=== PATIENT | female | born 1940 | race Caucasian/White ===

== ENCOUNTER 2018-06-11 09:22 | Inpatient (IN) ==
[2018-06-11] MEDS ORDERED: Piperacil/Tazo 4.5 GM Premix 4.5 GM/100 ML BAG IV.SIG STA (09:34)
[2018-06-11] MEDS ORDERED: Azithromycin Inj 500 MG in Sodium Chlor 0.9% Inj 250 ML IV.SIG STA (09:34)
[2018-06-11] MEDS ORDERED: Vancomycin Inj 1,000 MG in Sodium Chlor 0.9% Inj 250 ML IV.SIG STA (09:34)
[2018-06-11 09:35] LABS: ABG Base Excess -24.2 mmol/L (-2-2); ABG PCO2 14 mmHg (38-42); ABG PO2 257 mmHg (61-120)
[2018-06-11] MEDS: Sod Chloride 0.9% Inj 1,000 ML IV.SIG SCH ×2 (09:56→10:43)
--- NOTE | 2018-06-11 10:02 | XR ---
EXAM DATE: 06/11/2018 9:53 AM EST AGE/SEX: 77 years / Female INDICATIONS: Chest pain and shortness of breath. CLINICAL DATA: This is the patient's initial encounter. Patient reports that signs and symptoms have been present for 1 day and indicates a pain score of Nonresponsive. MEDICAL/SURGICAL HISTORY: Non-responsive. Non-responsive. COMPARISON: No prior exams available for comparison. FINDINGS: A single AP view of the chest demonstrates the lungs to be symmetrically aerated without evidence of mass, infiltrate or effusion. Atherosclerotic calcifications are again noted in the aorta. The cardio mediastinal contours are unremarkable. Osseous structures are intact. There are overlying electrocar diogram leads. CONCLUSION: No acute cardiopulmonary disease. Electronically signed by: Kaushal Waite MD Board Certified Radiologist 06/11/2018 10:01 AM EST
[2018-06-11 10:12] LABS: Baso # (Auto) 0.1 th/mm3 (0.0-0.2); Baso % (Auto) 0.5 % (0.0-2.0); Eos % (Auto) 0.4 % (0.0-4.0); Hematocrit 30.7 % (35.0-46.0); Lymph # (Auto) 1.2 th/mm3 (1.0-4.8); Mean Corpuscular HGB Conc 32.7 % (32.0-36.0); Mean Corpuscular Hemoglobin 31.4 pg (27.0-34.0); Mean Platelet Volume 8.5 fL (7.0-11.0); Mono # (Auto) 0.4 th/mm3 (0.0-0.9); Mono % (Auto) 3.3 % (0.0-8.0); Neut # (Auto) 10.6 th/mm3 (1.8-7.7); Neut % (Auto) 85.8 % (16.0-70.0); Platelet Count 278 th/mm3 (150-450); Red Cell Distribution Width 15.1 % (11.6-17.2); White Blood Count 12.4 th/mm3 (4.0-11.0)
--- NOTE | 2018-06-11 10:18 | ED ---
HPI General Chief Complaint: Shortness of Breath/Dyspnea Stated Complaint: Cardiac/emergent Time Seen by Provider: 06/11/18 09:34 Source: patient and EMS Mode of arrival: EMS Limitations: physical limitation (The patient is very short of breath which limits her ability to give us a history) History of Present Illness Complaint: Reports shortness of breath Context: Reports recent illness (She reports abdominal pain for the last 2 weeks. EVAC reports that she has been treated with 2 courses of antibiotics for a respiratory infection. The last antibiotic was a sulfa drug.) Severity: severe Consistency/Duration: constant Relieving factors: nothing Exacerbating factors: nothing Known history of: Reports COPD Associated symptoms: Reports nausea/vomiting and abdominal pain Treatment prior to arrival: Reports oxygen Related Data Home Medications Medication Instructions Recorded Confirmed amlodipine 10 mg PO DAILY 06/11/18 06/11/18 buspirone 10 mg PO BID 06/11/18 06/11/18 cetirizine 10 mg PO DAILY 06/11/18 06/11/18 lisinopril 40 mg PO DAILY 06/11/18 06/11/18 metoprolol succinate 50 mg PO BID 06/11/18 06/11/18 sertraline 50 mg PO DAILY 06/11/18 06/11/18 sulfamethoxazole-trimethoprim 1 tab PO Q12H 06/11/18 06/11/18 Allergies Allergy/AdvReac Type Severity Reaction Status Date / Time No Known Allergies Allergy Verified 06/11/18 09:25 Review of Systems ROS Unobtainable ROS Unobtainable: other (Due to respiratory status) [facility] Medical History Medical History Acute kidney injury (Acute) Allergic rhinitis (Acute) Anxiety (Acute) COPD (chronic obstructive pulmonary disease) (Acute) Depression (Acute) HTN (hypertension) (Acute) Hyperkalemia (Acute) Leukocytosis (Acute) Normocytic anemia (Acute) Tobacco abuse (Acute) Surgical History Surgical History Surgical history unknown (Acute) Family History Family History Other Paternal family history of emphysema Social History Social History Substance History: Unable to Obtain Second Hand Smoke Exposure: Yes Smoking Status: Current every day smoker Tobacco Type: Cigarettes How Often Do You Have a Drink Containing Alcohol: Unable to Obtain Recent Travel in [facility] within the Last 8 Weeks: No Recent Out of Country Travel within the Last 8 Weeks: No Immunization History Tetanus Immunization: Unsure Exam Const General: cooperative, acute distress and frail appearing Nutritional Appearance: malnourished and thin Orientation: alert, awake and oriented x3 [facility] Head: normal to inspection, normocephalic and atraumatic Mouth: moist mucous membranes abnormal (Mouth is dry) Eyes Conjunctivae: conjunctivae normal Sclera: sclerae normal Neck Neck: normal visual inspection and full ROM Chest Chest: normal inspection of the chest Breast inspection: normal inspection of the breasts Resp Effort & Inspection: labored and tachypneic Auscultation: clear to auscultation bilaterally Cardio Rate: regular rate Rhythm: regular rhythm GI Inspection: normal to inspection Palpation: soft and tender Back/Spine/Pelvis Cervical Spine: cervical ROM normal Thoracic/Lumbar Spine: thoraco-lumbar ROM normal Skin General: turgor normal and other (Normal color) Neuro General: alert, awake, oriented x3, moves all extremities and CN's II-XI intact bilaterally Extrem General: normal to inspection and full ROM Psych Appearance: grossly normal Mental Status: mental status grossly normal Course Consultations Consultation #1: Dr. Aguiar, truck dispatcher Time: 10:53 Consultation #2: Dr Mason, life enrichment assistant Time: 10:57 Initial Documented Vital Signs Pulse Rate 67 06/11/18 09:29 Respiratory Rate 17 06/11/18 09:29 Blood Pressure 159/58 H 06/11/18 09:29 Last Documented Vital Signs Temperature 95.9 F L 06/11/18 12:46 Pulse Rate 90 06/11/18 15:48 Respiratory Rate 18 06/11/18 15:48 Blood Pressure 92/44 L 06/11/18 14:00 Pulse Oximetry 100 06/11/18 14:00 Critical Care Time Critical Care Time: Yes Total Critical Care Time: 45 Attestation: Time to perform other separately billable procedures was not included in the critical care time. My time did not include minutes spent treating any other patients simultaneously or on activities that did not directly contribute to the patient's treatment. The services I provided to this patient were to treat and/or prevent clinically significant deterioration due to respiratory distress, rule out sepsis I provided critical care services requiring my management, as noted below: Chart data review, documentation time, medication orders and management, vital sign assessments/reviewing monitor data, ordering and reviewing lab tests, ordering and interpreting/reviewing x-rays and diagnostic studies, care of the patient and discussion of the patient with the admitting physicians Medical Decision Making MDM Narrative Medical decision making narrative: This patient presented to [facility] with respiratory distress. They report oxygen saturation of 80% on a 15 L nonrebreather mask. The patient looks acutely ill on presentation. She has labored respirations. However, her lungs are clear. Her cardiac rhythm was in question on arrival. We have subsequently obtained an EKG and it looks like her cardiac rhythm is sinus with large, discordant T waves. EVAC's monitor was counting the T waves. An ABG was quickly obtained. The patient has a metabolic acidosis. She has adequate oxygenation. Septic workup is in process. She is being bolused with 2 L of IV fluids. She has been given empiric antibiotics for a respiratory infection. She presented here yesterday to triage with a chief complaint of abdominal pain for the last 2 weeks. She left prior to being seen. Given that history, I have added a CT of the abdomen and pelvis to look for a source of infection there. The potassium is 8.8. I have ordered IV insulin/D50, calcium carbonate and bicarb. Nephrology has been paged. The patient needs to be admitted to the intensive care unit. I have canceled her CT of the abdomen and pelvis. Medical Screen Exam Complete: Yes Emergency Medical Condition: Yes Lab Data Lab results reviewed: Yes I reviewed the patient's lab results. Result diagrams: 06/11/18 09:47 06/11/18 09:47 Lab Results 06/11/18 06/11/18 06/11/18 Range/Units 09:28 09:47 09:47 WBC 12.4 H (4.0-11.0) th/mm3 RBC 3.20 L (4.00-5.30) mil/mm3 Hgb 10.0 L (11.6-15.3) gm/dL Hct 30.7 L (35.0-46.0) % MCV 96.0 (80.0-100.0) fL MCH 31.4 (27.0-34.0) pg MCHC 32.7 (32.0-36.0) % RDW 15.1 (11.6-17.2) % Plt Count 278 (150-450) th/mm3 MPV 8.5 (7.0-11.0) fL Prelim Diff (Auto) Slide review pending Neut % (Auto) 85.8 H (16.0-70.0) % Lymph % (Auto) 10.0 (9.0-44.0) % Sebastian % (Auto) 3.3 (0.0-8.0) % Eos % (Auto) 0.4 (0.0-4.0) % Baso % (Auto) 0.5 (0.0-2.0) % Neut # (Auto) 10.6 H (1.8-7.7) th/mm3 Lymph # (Auto) 1.2 (1.0-4.8) th/mm3 Sebastian # (Auto) 0.4 (0.0-0.9) th/mm3 Eos # (Auto) 0.0 (0.0-0.4) th/mm3 Baso # (Auto) 0.1 (0.0-0.2) th/mm3 WBC Differential Manual diff final Seg Neuts % (Manual) 85 H (16-70) % Lymphocytes % (Manual) 10 (9-44) % Basophils % (Manual) 1 (0-2) % Metamyelocytes % (Man) 3 H (0-1) % Myelocytes % (Man) 1 H (0-0) % Abs Neuts (Manual) 11.0 H (1.8-7.7) th/mm3 Differential Comment . Platelet Estimate Normal (Normal) Platelet Morphology Normal (Normal) Puncture Site Right radial Patient Temperature 98.6 O2 Saturation 98 (90-100) % ABG pH 7.09 L* (7.380-7.420) ABG pCO2 14 L* (38-42) mmHg ABG pO2 257 H (61-120) mmHg ABG HCO3 4 L* (22-26) mmol/L ABG O2 Content 13.6 (12.0-20.0) Vol % ABG Base Excess -24.2 L (-2-2) mmol/L ABG Methemoglobin 0.9 (0-2) % Paddy Test Present Hemoglobin 9.4 L (12.0-16.0) G/DL Carboxyhemoglobin 0.4 (0-4) % O2 Delivery Device Nrb Liter Flow 15.00 L/M Inspired O2 100 % Critical Value Yes Sodium 137 (136-145) meq/L Potassium 8.8 H* (3.5-5.1) meq/L Chloride 114 H (98-107) meq/L Carbon Dioxide 7.8 L (21.0-32.0) meq/L Anion Gap 15 (5-15) meq/L BUN 172 H (7-18) mg/dL Creatinine 9.81 H (0.50-1.00) mg/dL Estimated GFR 4 L (>89) mL/min POC Glucose (68-110) mg/dl Random Glucose 75 (74-106) mg/dL Lactic Acid (0.4-2.0) mmol/L Calcium 8.9 (8.5-10.1) mg/dL Magnesium 3.0 H (1.5-2.5) mg/dL Total Bilirubin 0.2 (0.2-1.0) mg/dL AST 17 (15-37) U/L ALT 20 (10-53) U/L Alkaline Phosphatase 60 (45-117) U/L Ammonia (11-32) mcmol/L Total Creatine Kinase (26-192) U/L Troponin I (0.02-0.05) ng/mL Total Protein 6.6 (6.4-8.2) g/dL Albumin 3.5 (3.4-5.0) g/dL TSH (0.358-3.740) uIU/mL Urine Color (Yellw/Straw) Urine Clarity (Clear) Urine pH (5.0-8.5) Ur Specific [facility] [place] (1.002-1.035) Urine Protein (Neg-Trace) mg/dL Urine Glucose (UA) (Negative) mg/dL Urine Ketones (Negative) mg/dL Urine Occult Blood (Negative) Urine Nitrate (Negative) Urine Bilirubin (Negative) Urine Urobilinogen (Less than 2) mg/dL Ur Leukocyte Esterase (Negative) Urine RBC (0-3) /hpf Urine WBC (0-5) /hpf Ur Squamous Epith Cells (0-5) /hpf Amorphous Sediment (None) /hpf Urine Bacteria (None) /hpf Hyaline Casts (0-3) /lpf Urine Mucus (Occasional) /lpf Micro UA Comment Ur Microscopic Review Urine Culture Comments Urine Eosinophils (None Seen) /HPF Ur Random Creatinine (27-300) mg/dL Ur Random Sodium meq/L Nasal Screen MRSA (PCR) (Negative) 06/11/18 06/11/18 06/11/18 Range/Units 09:47 09:47 09:47 WBC (4.0-11.0) th/mm3 RBC (4.00-5.30) mil/mm3 Hgb (11.6-15.3) gm/dL Hct (35.0-46.0) % MCV (80.0-100.0) fL MCH (27.0-34.0) pg MCHC (32.0-36.0) % RDW (11.6-17.2) % Plt Count (150-450) th/mm3 MPV (7.0-11.0) fL Prelim Diff (Auto) Neut % (Auto) (16.0-70.0) % Lymph % (Auto) (9.0-44.0) % Sebastian % (Auto) (0.0-8.0) % Eos % (Auto) (0.0-4.0) % Baso % (Auto) (0.0-2.0) % Neut # (Auto) (1.8-7.7) th/mm3 Lymph # (Auto) (1.0-4.8) th/mm3 Sebastian # (Auto) (0.0-0.9) th/mm3 Eos # (Auto) (0.0-0.4) th/mm3 Baso # (Auto) (0.0-0.2) th/mm3 WBC Differential Seg Neuts % (Manual) (16-70) % Lymphocytes % (Manual) (9-44) % Basophils % (Manual) (0-2) % Metamyelocytes % (Man) (0-1) % Myelocytes % (Man) (0-0) % Abs Neuts (Manual) (1.8-7.7) th/mm3 Differential Comment Platelet Estimate (Normal) Platelet Morphology (Normal) Puncture Site Patient Temperature O2 Saturation (90-100) % ABG pH (7.380-7.420) ABG pCO2 (38-42) mmHg ABG pO2 (61-120) mmHg ABG HCO3 (22-26) mmol/L ABG O2 Content (12.0-20.0) Vol % ABG Base Excess (-2-2) mmol/L ABG Methemoglobin (0-2) % Paddy Test Hemoglobin (12.0-16.0) G/DL Carboxyhemoglobin (0-4) % O2 Delivery Device Liter Flow L/M Inspired O2 % Critical Value Sodium (136-145) meq/L Potassium (3.5-5.1) meq/L Chloride (98-107) meq/L Carbon Dioxide (21.0-32.0) meq/L Anion Gap (5-15) meq/L BUN (7-18) mg/dL Creatinine (0.50-1.00) mg/dL Estimated GFR (>89) mL/min POC Glucose (68-110) mg/dl Random Glucose (74-106) mg/dL Lactic Acid 0.8 (0.4-2.0) mmol/L Calcium (8.5-10.1) mg/dL Magnesium (1.5-2.5) mg/dL Total Bilirubin (0.2-1.0) mg/dL AST (15-37) U/L ALT (10-53) U/L Alkaline Phosphatase (45-117) U/L Ammonia (11-32) mcmol/L Total Creatine Kinase 118 (26-192) U/L Troponin I 0.04 (0.02-0.05) ng/mL Total Protein (6.4-8.2) g/dL Albumin (3.4-5.0) g/dL TSH 1.880 (0.358-3.740) uIU/mL Urine Color (Yellw/Straw) Urine Clarity (Clear) Urine pH (5.0-8.5) Ur Specific [facility] (1.002-1.035) Urine Protein (Neg-Trace) mg/dL Urine Glucose (UA) (Negative) mg/dL Urine Ketones (Negative) mg/dL Urine Occult Blood (Negative) Urine Nitrate (Negative) Urine Bilirubin (Negative) Urine Urobilinogen (Less than 2) mg/dL Ur Leukocyte Esterase (Negative) Urine RBC (0-3) /hpf Urine WBC (0-5) /hpf Ur Squamous Epith Cells (0-5) /hpf Amorphous Sediment (None) /hpf Urine Bacteria (None) /hpf Hyaline Casts (0-3) /lpf Urine Mucus (Occasional) /lpf Micro UA Comment Ur Microscopic Review Urine Culture Comments Urine Eosinophils (None Seen) /HPF Ur Random Creatinine (27-300) mg/dL Ur Random Sodium meq/L Nasal Screen MRSA (PCR) (Negative) 06/11/18 06/11/18 06/11/18 Range/Units 10:00 12:20 13:30 WBC (4.0-11.0) th/mm3 RBC (4.00-5.30) mil/mm3 Hgb (11.6-15.3) gm/dL Hct (35.0-46.0) % MCV (80.0-100.0) fL MCH (27.0-34.0) pg MCHC (32.0-36.0) % RDW (11.6-17.2) % Plt Count (150-450) th/mm3 MPV (7.0-11.0) fL Prelim Diff (Auto) Neut % (Auto) (16.0-70.0) % Lymph % (Auto) (9.0-44.0) % Sebastian % (Auto) (0.0-8.0) % Eos % (Auto) (0.0-4.0) % Baso % (Auto) (0.0-2.0) % Neut # (Auto) (1.8-7.7) th/mm3 Lymph # (Auto) (1.0-4.8) th/mm3 Sebastian # (Auto) (0.0-0.9) th/mm3 Eos # (Auto) (0.0-0.4) th/mm3 Baso # (Auto) (0.0-0.2) th/mm3 WBC Differential Seg Neuts % (Manual) (16-70) % Lymphocytes % (Manual) (9-44) % Basophils % (Manual) (0-2) % Metamyelocytes % (Man) (0-1) % Myelocytes % (Man) (0-0) % Abs Neuts (Manual) (1.8-7.7) th/mm3 Differential Comment Platelet Estimate (Normal) Platelet Morphology (Normal) Puncture Site Patient Temperature O2 Saturation (90-100) % ABG pH (7.380-7.420) ABG pCO2 (38-42) mmHg ABG pO2 (61-120) mmHg ABG HCO3 (22-26) mmol/L ABG O2 Content (12.0-20.0) Vol % ABG Base Excess (-2-2) mmol/L ABG Methemoglobin (0-2) % Paddy Test Hemoglobin (12.0-16.0) G/DL Carboxyhemoglobin (0-4) % O2 Delivery Device Liter Flow L/M Inspired O2 % Critical Value Sodium (136-145) meq/L Potassium (3.5-5.1) meq/L Chloride (98-107) meq/L Carbon Dioxide (21.0-32.0) meq/L Anion Gap (5-15) meq/L BUN (7-18) mg/dL Creatinine (0.50-1.00) mg/dL Estimated GFR (>89) mL/min POC Glucose 348 H (68-110) mg/dl Random Glucose (74-106) mg/dL Lactic Acid (0.4-2.0) mmol/L Calcium (8.5-10.1) mg/dL Magnesium (1.5-2.5) mg/dL Total Bilirubin (0.2-1.0) mg/dL AST (15-37) U/L ALT (10-53) U/L Alkaline Phosphatase (45-117) U/L Ammonia (11-32) mcmol/L Total Creatine Kinase (26-192) U/L Troponin I (0.02-0.05) ng/mL Total Protein (6.4-8.2) g/dL Albumin (3.4-5.0) g/dL TSH (0.358-3.740) uIU/mL Urine Color Yellow (Yellw/Straw) Urine Clarity Hazy H (Clear) Urine pH 5.0 (5.0-8.5) Ur Specific [facility] 1.012 (1.002-1.035) Urine Protein 30 H (Neg-Trace) mg/dL Urine Glucose (UA) Negative (Negative) mg/dL Urine Ketones Negative (Negative) mg/dL Urine Occult Blood Small H (Negative) Urine Nitrate Negative (Negative) Urine Bilirubin Negative (Negative) Urine Urobilinogen Less than 2 (Less than 2) mg/dL Ur Leukocyte Esterase Negative (Negative) Urine RBC 1 (0-3) /hpf Urine WBC 1 (0-5) /hpf Ur Squamous Epith Cells 9 (0-5) /hpf Amorphous Sediment Rare H (None) /hpf Urine Bacteria Rare H (None) /hpf Hyaline Casts 7 (0-3) /lpf Urine Mucus Few H (Occasional) /lpf Micro UA Comment Cath-culture ind Ur Microscopic Review Not Reportable Urine Culture Comments Cath-cult indicated Urine Eosinophils (None Seen) /HPF Ur Random Creatinine 113 (27-300) mg/dL Ur Random Sodium 60 meq/L Nasal Screen MRSA (PCR) (Negative) 06/11/18 06/11/18 06/11/18 Range/Units 13:30 14:00 14:48 WBC (4.0-11.0) th/mm3 RBC (4.00-5.30) mil/mm3 Hgb (11.6-15.3) gm/dL Hct (35.0-46.0) % MCV (80.0-100.0) fL MCH (27.0-34.0) pg MCHC (32.0-36.0) % RDW (11.6-17.2) % Plt Count (150-450) th/mm3 MPV (7.0-11.0) fL Prelim Diff (Auto) Neut % (Auto) (16.0-70.0) % Lymph % (Auto) (9.0-44.0) % Sebastian % (Auto) (0.0-8.0) % Eos % (Auto) (0.0-4.0) % Baso % (Auto) (0.0-2.0) % Neut # (Auto) (1.8-7.7) th/mm3 Lymph # (Auto) (1.0-4.8) th/mm3 Sebastian # (Auto) (0.0-0.9) th/mm3 Eos # (Auto) (0.0-0.4) th/mm3 Baso # (Auto) (0.0-0.2) th/mm3 WBC Differential Seg Neuts % (Manual) (16-70) % Lymphocytes % (Manual) (9-44) % Basophils % (Manual) (0-2) % Metamyelocytes % (Man) (0-1) % Myelocytes % (Man) (0-0) % Abs Neuts (Manual) (1.8-7.7) th/mm3 Differential Comment Platelet Estimate (Normal) Platelet Morphology (Normal) Puncture Site Patient Temperature O2 Saturation (90-100) % ABG pH (7.380-7.420) ABG pCO2 (38-42) mmHg ABG pO2 (61-120) mmHg ABG HCO3 (22-26) mmol/L ABG O2 Content (12.0-20.0) Vol % ABG Base Excess (-2-2) mmol/L ABG Methemoglobin (0-2) % Paddy Test Hemoglobin (12.0-16.0) G/DL Carboxyhemoglobin (0-4) % O2 Delivery Device Liter Flow L/M Inspired O2 % Critical Value Sodium (136-145) meq/L Potassium (3.5-5.1) meq/L Chloride (98-107) meq/L Carbon Dioxide (21.0-32.0) meq/L Anion Gap (5-15) meq/L BUN (7-18) mg/dL Creatinine (0.50-1.00) mg/dL Estimated GFR (>89) mL/min POC Glucose (68-110) mg/dl Random Glucose (74-106) mg/dL Lactic Acid (0.4-2.0) mmol/L Calcium (8.5-10.1) mg/dL Magnesium (1.5-2.5) mg/dL Total Bilirubin (0.2-1.0) mg/dL AST (15-37) U/L ALT (10-53) U/L Alkaline Phosphatase (45-117) U/L Ammonia 16 (11-32) mcmol/L Total Creatine Kinase (26-192) U/L Troponin I (0.02-0.05) ng/mL Total Protein (6.4-8.2) g/dL Albumin (3.4-5.0) g/dL TSH (0.358-3.740) uIU/mL Urine Color (Yellw/Straw) Urine Clarity (Clear) Urine pH (5.0-8.5) Ur Specific [facility] (1.002-1.035) Urine Protein (Neg-Trace) mg/dL Urine Glucose (UA) (Negative) mg/dL Urine Ketones (Negative) mg/dL Urine Occult Blood (Negative) Urine Nitrate (Negative) Urine Bilirubin (Negative) Urine Urobilinogen (Less than 2) mg/dL Ur Leukocyte Esterase (Negative) Urine RBC (0-3) /hpf Urine WBC (0-5) /hpf Ur Squamous Epith Cells (0-5) /hpf Amorphous Sediment (None) /hpf Urine Bacteria (None) /hpf Hyaline Casts (0-3) /lpf Urine Mucus (Occasional) /lpf Micro UA Comment Ur Microscopic Review Urine Culture Comments Urine Eosinophils Rare H (None Seen) /HPF Ur Random Creatinine (27-300) mg/dL Ur Random Sodium meq/L Nasal Screen MRSA (PCR) Not detected (Negative) Imaging Data Attestation: I personally reviewed and interpreted this imaging study as follows : Radiologist's impression: Chest X-Ray 06/11/18 09:34 CONCLUSION: No acute cardiopulmonary disease. Abdomen/Bladder Ultrasound 06/11/18 11:19 CONCLUSION: 1. Small echogenic right kidney 2. Normal left kidney 3. Trace ascites Chest X-Ray 06/11/18 12:00 CONCLUSION: 1. Interval placement of right internal jugular central venous line with no pneumothorax. 2. No acute cardiopulmonary disease. ECG Data EKG Prior to Arrival: Yes Attestation: I personally reviewed and interpreted this ECG as follows: (EKG shows an underlying sinus rhythm with unifocal PVCs. She has discordant, peaked T waves in the anterolateral leads.) Prior ECG tracings: not available for review Discharge Plan Discharge Disposition Patient Disposition: ED Admit(ED Internal Use Only) Discharge Order Discharge Orders: ED Use Only Admit Order (Routine); Ordered 06/11/18 Ordered By: Susie Wolfe Discharge Details Diagnosis: Acute renal failure, Acute hyperkalemia Physicians Team ED Provider: Susie Wolfe Primary Care Provider: Pardeep Duke Attending Provider: Jordan Aguiar Other Providers: Joel Maldonado Status ED Status: Left Department Discharge Information Discharge Date/Time: 06/11/18 12:35
[2018-06-11 10:38] LABS: Alanine Aminotransferase 20 U/L (10-53); Albumin 3.5 g/dL (3.4-5.0); Alkaline Phosphatase 60 U/L (45-117); Anion Gap 15 meq/L (5-15); Aspartate Aminotransferase 17 U/L (15-37); Blood Urea Nitrogen 172 mg/dL (7-18); Calcium 8.9 mg/dL (8.5-10.1); Carbon Dioxide 7.8 meq/L (21.0-32.0); Chloride 114 meq/L (98-107); Glomerular Filtration Rate 4 mL/min (>89); Glucose,Random 75 mg/dL (74-106); Sodium 137 meq/L (136-145); Total Protein 6.6 g/dL (6.4-8.2)
[2018-06-11 10:40] LABS: Potassium 8.8 meq/L (3.5-5.1)
[2018-06-11] MEDS ORDERED: Calcium Gluconate Inj 2 GM in Dextrose 5% in Water Inj 100 ML IV.SIG ONE ×2 (10:40)
[2018-06-11] MEDS ORDERED: Dextrose 50% in Water 50 ML Vial IV.PUSH ONE (10:40)
[2018-06-11 10:42] LABS: Amorphous Sediment,Urine Rare /hpf; Bacteria,Urine Rare /hpf; Bilirubin,Urine Negative (Negative); Clarity,Urine Hazy (Clear); Color,Urine Yellow (Yellw/Straw); Glucose,Urine (UA) Negative (Negative); Hyaline Casts,Urine 7 /lpf (0-3); Leukocyte Esterase,Urine Negative (Negative); Mucus,Urine Few /lpf (Occasional); Nitrite,Urine Negative (Negative); Specific Gravity,Urine 1.012 (1.002-1.035); Squamous Epithelial Cell,Urine 9 /hpf (0-5)
[2018-06-11 10:54] LABS: Lymphocytes 10 % (9-44); Metamyelocytes 3 % (0-1); Myelocytes 1 % (0-0)
[2018-06-11 10:55] LABS: Platelet Estimate Normal (Normal); Platelet Morphology Normal (Normal)
[2018-06-11] MEDS ORDERED: Gelatin 12 MM/7 MM Topical Foam TOPICAL PRN (11:06)
[2018-06-11] MEDS ORDERED: Heparin 10,000 UNITS/10 ML Vial (for IV use) OTHER PRN ×2 (11:06)
[2018-06-11] MEDS ORDERED: Acetaminophen 325 MG Tablet PO PRN ×2 (11:06→11:19)
[2018-06-11] MEDS ORDERED: Sod Chloride 0.9% Inj 1,000 ML IV.CONT PRN (11:06)
[2018-06-11] MEDS ORDERED: Sod Chloride 0.9% Inj 1,000 ML OTHER PRN ×2 (11:06)
[2018-06-11] MEDS ORDERED: Bisacodyl 10 MG Supp RECTAL PRN (11:19)
[2018-06-11] MEDS ORDERED: Dextrose 50% in Water 50 ML Vial IV.PUSH PRN (11:23)
--- NOTE | 2018-06-11 11:24 | P.HPCC ---
History of Present Illness Service: Critical care medicine Primary Care Physician: Pardeep Duke MD Chief Complaint: Altered mental status History of Present Illness: This is a 77-year-old female. Admission 06/11/2018. Past medical history includes chronic tobacco abuse, COPD, depression/anxiety, hypertension and allergic rhinitis. Patient presents to [facility] [address] In the ED, patient was noted to have leukocytosis, normocytic anemia and elevated potassium above 8. Trend is currently 10. BUN is elevated. Patient is quite confused. EKG reveals peaked T waves. Dr. Mason from nephrology was consulted and recommended emergent hemodialysis.. Hemodialysis cath was placed patient was transported to room [facility] to begin this procedure. - Diagnosis (1) Acute renal failure (2) Acute hyperkalemia (3) COPD (chronic obstructive pulmonary disease) (4) Depression (5) Anxiety (6) Normocytic anemia (7) Leukocytosis (8) Tobacco abuse (9) Allergic rhinitis Inpatient Certification: I certify that the inpatient services were ordered in accordance with Medicare regulations governing the order. This includes certification that hospital inpatient services are reasonable and necessary and in the case of services not specified as inpatient-only under 42 CFR 419.22(n), that they are appropriately provided as inpatient services in accordance to with the 2-midnight benchmark under 43 CFR 412.3(e) Estimated Total Length of Stay (Days): 5 Plans for Post Hospital Care: Not yet determined Review of Systems unobtainable due to mental status PMFSH - History History Provided By: Patient - Medical History Medical History: Medical History (Last Updated 06/11/18 @ 12:47 by Jordan Aguiar MD) Acute kidney injury Allergic rhinitis Anxiety COPD (chronic obstructive pulmonary disease) Depression HTN (hypertension) Hyperkalemia Leukocytosis Normocytic anemia Surgical history unknown Tobacco abuse - Surgical History Surgical History: Surgical History (Last Updated 06/11/18 @ 12:48 by Jordan Aguiar MD) Surgical history unknown - Family History Family History: Family History (Last Updated 06/11/18 @ 12:48 by Jordan Aguiar MD) Other Paternal family history of emphysema - Social History I have reviewed the patient's Social History: Yes - Tobacco History Second Hand Smoke Exposure: Yes Tobacco Use In Past 30 Days: Yes Smoking Status: Current every day smoker Tobacco Type: Cigarettes - Alcohol History How Often Do You Have a Drink Containing Alcohol: Unable to Obtain - Substance Use History Substance History: Unable to Obtain - Travel History Recent Travel in the [place] Within the Last 8 Weeks: No Recent Travel Out of the Country Within the Last 8 Weeks: No - Immunization History Tetanus Immunization: Unsure Medications and Allergies Active Medications: Active Medications Acetaminophen (Tylenol) 650 mg PO UNSCH PRN PRN Reason: SEE LABEL COMMENTS Acetaminophen (Tylenol) 650 mg PO Q6H PRN PRN Reason: PAIN 1-10 AND/OR FEVER >101F Al Hydroxide/Mg Hydroxide (Milk Of Carmelita Parada) 30 ml PO Q12H PRN PRN Reason: Mild Constipation Albuterol (Albuterol Neb (Nicole)) 2.5 mg NEB Q2HR NEB PRN PRN Reason: SHORTNESS OF BREATH/WHEEZING Albuterol (Duoneb Neb (Prn)) 1 ampul NEB Q4HR NEB NICOLE Bisacodyl (Dulcolax Supp) 10 mg RECTAL DAILY PRN PRN Reason: SEVERE CONSITIPATION Chlorhexidine Gluconate (Chlorhexidine 2% Cloth) 3 pack TOPICAL DAILY@0400 NICOLE Stop: 06/17/18 03:59 Chlorhexidine Gluconate (Chlorhexidine 2% Cloth) 3 pack TOPICAL DAILY@0400 PRN PRN Reason: Extra cloth needed Stop: 06/17/18 03:59 Clonidine HCl (Catapres) 0.1 mg PO UNSCH PRN PRN Reason: SEE LABEL COMMENTS Dextrose (D50w Vial) 50 ml IV.PUSH UNSCH PRN PRN Reason: PER HYPOGLYCEMIA PROTOCOL Diphenhydramine HCl (Benadryl) 25 mg PO UNSCH PRN PRN Reason: SEE LABEL COMMENTS Gelatin (Gelfoam 12 Mm/7 Mm Topical) 1 foam TOPICAL PRN PRN PRN Reason: help stop bleeding from site Gentamicin Sulfate (Gentamicin Inj) 20 mg OTHER WITH DIALYSIS PRN PRN Reason: Dwell Gentamycin Lock Glucagon (Glucagon Inj) 1 mg OTHER PRN PRN PRN Reason: for Hypoglycemia Protocol Heparin Sodium (Porcine) (Heparin Inj) 8,000 units OTHER WITH DIALYSIS PRN PRN Reason: for machine prime Heparin Sodium (Porcine) (Heparin Inj) 1,000 units OTHER WITH DIALYSIS PRN PRN Reason: Dwell Heparin to Fill Catheter Heparin Sodium (Porcine) (Heparin Inj) 5,000 units SQ Q12H NICOLE Calcium Gluconate 2 gm/ (Dextrose) 120 mls @ 120 mls/hr IV.SIG ONCE ONE Stop: 06/11/18 11:39 Last Admin: 06/11/18 11:06 Dose: 120 mls/hr Albumin Human (Flexbumin 25% Inj) 100 mls @ 60 mls/hr IV.SIG WITH DIALYSIS PRN PRN Reason: hypotension / volume replace Sodium Chloride (Ns Inj) 1,000 mls @ 0 mls/hr OTHER .Q0M PRN PRN Reason: for prime and rinse back Sodium Chloride (Ns Inj) 1,000 mls @ 200 mls/hr OTHER .Q5H PRN PRN Reason: for dialyzer flush PRN Sodium Chloride (Ns Inj) 1,000 mls @ 0 mls/hr IV.CONT .Q0M PRN PRN Reason: hypotension / volume replace Sodium Chloride (Ns Inj) 1,000 mls @ 84 mls/hr IV.CONT .[id number] NICOLE Insulin Aspart (Novolog Insulin Correctional Sugar Inj) 0 unit SQ Q6HR NICOLE; Protocol Lactulose (Lactulose Liq) 30 ml PO DAILY PRN PRN Reason: SEVERE CONSITIPATION Mannitol (Mannitol Inj) 12.5 gm IV.PUSH UNSCH PRN PRN Reason: hypotension / volume replace Nitroglycerin (Nitrostat Sl) 0.4 mg SL Q5M PRN PRN Reason: CHEST PAIN Ondansetron HCl (Zofran Inj) 4 mg IV.PUSH UNSCH PRN PRN Reason: NAUSEA OR VOMITING Ondansetron HCl (Zofran Inj) 4 mg IV.PUSH Q6H PRN PRN Reason: NAUSEA OR VOMITING Pantoprazole Sodium (Protonix Inj) 40 mg IV.PUSH DAILY [facility] Senna/Docusate Sodium (Meagan-Colace) 1 tab PO BID [facility] Sennosides (Senokot) 17.2 mg PO Q12H PRN PRN Reason: Moderate Constipation Sodium Chloride (Ns Flush) 5 ml IV.FLUSH PRN PRN PRN Reason: flush each lumen during HD Sodium Chloride (Ns Flush) 2 ml IV.FLUSH BID NICOLE Sodium Chloride (Ns Flush) 2 ml IV.FLUSH PRN PRN PRN Reason: FLUSH AFTER USING IV ACCESS Allergies Allergy/AdvReac Type Severity Reaction Status Date / Time No Known Allergies Allergy Verified 06/11/18 09:25 Home Medications Medication Instructions Recorded Confirmed Type amlodipine 10 mg PO DAILY 06/11/18 06/11/18 History buspirone 10 mg PO BID 06/11/18 06/11/18 History cetirizine 10 mg PO DAILY 06/11/18 06/11/18 History lisinopril 40 mg PO DAILY 06/11/18 06/11/18 History metoprolol succinate 50 mg PO BID 06/11/18 06/11/18 History sertraline 50 mg PO DAILY 06/11/18 06/11/18 History sulfamethoxazole-trimethoprim 1 tab PO Q12H 06/11/18 06/11/18 History Results - Labs CBC & Chem 7: 06/11/18 09:47 06/11/18 09:47 Labs: Short CBC 06/11/18 Range/Units 09:47 WBC 12.4 H (4.0-11.0) th/mm3 Hgb 10.0 L (11.6-15.3) gm/dL Hct 30.7 L (35.0-46.0) % Plt Count 278 (150-450) th/mm3 BMP 06/11/18 09:47 Sodium 137 Potassium 8.8 H* Chloride 114 H Carbon Dioxide 7.8 L BUN 172 H Creatinine 9.81 H Calcium 8.9 Liver Function 06/11/18 Range/Units 09:47 Total Bilirubin 0.2 (0.2-1.0) mg/dL AST 17 (15-37) U/L ALT 20 (10-53) U/L Alkaline Phosphatase 60 (45-117) U/L Albumin 3.5 (3.4-5.0) g/dL Urine 06/11/18 Range/Units 10:00 Urine Color Yellow (Yellw/Straw) Urine Clarity Hazy H (Clear) Urine pH 5.0 (5.0-8.5) Ur Specific [place] 1.012 (1.002-1.035) Urine Protein 30 H (Neg-Trace) mg/dL Urine Glucose (UA) Negative (Negative) mg/dL - Imaging Impressions Chest X-Ray 06/11/18 09:34 CONCLUSION: No acute cardiopulmonary disease. Exam Vital signs: Vital Signs 06/11/18 09:29 06/11/18 10:01 06/11/18 10:30 Temperature 97.0 F L Pulse Rate 67 116 H Respiratory Rate 17 Blood Pressure 159/58 H 109/65 Pulse Oximetry 95 06/11/18 11:00 Temperature Pulse Rate 128 H Respiratory Rate Blood Pressure 132/57 L Pulse Oximetry 97 Intake & Output 06/10/18 06/11/18 06/11/18 18:59 06:59 18:59 Intake Total 2600 / 2600 Balance 2600 / 2600 Weight 34.473 kg Intake: IV 2600 / 2600 Azithromycin Inj 500 MG In NS 250 / 250 Inj 250 ML @ 250 mls/hr IV.SIG STAT STA Rx#:[id number] Zosyn 4.5 GM Premix 4.5 gm In 100 / 100 100 ml @ 200 mls/hr IV.SIG STAT STA Rx#:[id number] NS Inj 1,000 ML @ 2000 mls/hr 1999 / 1999 IV.SIG Q30M NICOLE Rx#:[id number] Vancomycin Inj 1,000 MG In NS 250 / 250 Inj 250 ML @ 250 mls/hr IV.SIG STAT STA Rx#:[id number] - Constitutional mild distress - Routine HEENT Exam Head: Present: normocephalic, atraumatic Eye: Present: EOMI, PERRL, normal accommodation ENT: Present: mucous membranes dry - Routine Neck Exam Present: supple, full ROM. Absent: JVD - Routine Chest/Breast/Axilla Exam Chest wall: Absent: tenderness Breast: Absent: tenderness Axillae: Absent: lymphadenopathy - Routine Respiratory Exam Present: crackles, diminished air movement. Absent: accessory muscle use - Routine Cardiovascular Exam Present: RRR, S1, S2. Absent: murmur - Routine Abdominal Exam Present: soft, normoactive bowel sounds - Routine Extremities Exam Absent: cyanosis, clubbing, edema - Routine Skin Exam Present: intact - Routine Neurological Exam Present: CN II-XII intact. Absent: alert, oriented X3, sensory deficit, motor deficit Septic Shock Reassessment Septic shock perfusion: reassessment completed Caprini VTE Risk Assessment Caprini VTE Risk Assessment: Moderate/High Risk (score >= 2) Caprini Risk Assessment Model: Point Value = 1 Point Value = 2 Point Value = 3 Point Value = 5 Age 41-60 Minor surgery BMI > 25 kg/m2 Swollen legs Varicose veins or History of unexplained or recurrent spontaneous Oral contraceptives or hormone replacement Sepsis (< 1 month) Serious lung disease, including pneumonia (< 1 month) Abnormal pulmonary function Acute myocardial infarction Congestive heart failure (< 1 month) History of inflammatory bowel disease Medical patient at bed rest Age 61-74 Arthroscopic surgery Major open surgery (> 45 min) Laparoscopic surgery (> 45 min) Malignancy Confined to bed (> 72 hours) Immobilizing plaster cast Central venous access Age >= 75 History of VTE Family history of VTE Factor V Leiden Prothrombin [id number] Lupus anticoagulant Anticardiolipin antibodies Elevated serum homocysteine Heparin-induced thrombocytopenia Other congenital or acquired thrombophilia Stroke (< 1 month) Elective arthroplasty Hip, pelvis, or leg fracture Acute spinal cord injury (< 1 month) Prophylaxis Regimen: Total Risk Factor Score Risk Level Prophylaxis Regimen 0-1 Low Early ambulation 2 Moderate Order ONE of the following: *Sequential Compression Device (SCD) *Heparin 5000 units SQ BID 3-4 Higher Order ONE of the following medications: *Heparin 5000 units SQ TID *Enoxaparin/Lovenox 40 mg SQ daily (WT < 150 kg, CrCl > 30 mL/min) *Enoxaparin/Lovenox 30 mg SQ daily (WT < 150 kg, CrCl > 10-29 mL/min) *Enoxaparin/Lovenox 30 mg SQ BID (WT < 150 kg, CrCl > 30 mL/min) AND/OR *Sequential Compression Device (SCD) 5 or more Highest Order ONE of the following medications: *Heparin 5000 units SQ TID (Preferred with Epidurals) *Enoxaparin/Lovenox 40 mg SQ daily (WT < 150 kg, CrCl > 30 mL/min) *Enoxaparin/Lovenox 30 mg SQ daily (WT < 150 kg, CrCl > 10-29 mL/min) *Enoxaparin/Lovenox 30 mg SQ BID (WT < 150 kg, CrCl > 30 mL/min) AND *Sequential Compression Device (SCD) Assessment and Plan - Problem List (1) Acute renal failure Code(s): N17.9 - Acute kidney failure, unspecified Status: Acute (2) Acute hyperkalemia Code(s): E87.5 - Hyperkalemia Status: Acute (3) COPD (chronic obstructive pulmonary disease) Code(s): J44.9 - Chronic obstructive pulmonary disease, unspecified Status: Acute (4) Depression Code(s): F32.9 - Major depressive disorder, single episode, unspecified Status : Acute (5) Anxiety Code(s): F41.9 - Anxiety disorder, unspecified Status: Acute (6) Normocytic anemia Code(s): D64.9 - Anemia, unspecified Status: Acute (7) Leukocytosis Code(s): D72.829 - Elevated white blood cell count, unspecified Status: Acute (8) Tobacco abuse Code(s): Z72.0 - Tobacco use Status: Acute (9) Allergic rhinitis Code(s): J30.9 - Allergic rhinitis, unspecified Status: Acute - Assessment and Plan Plan: Neuro/Psych: Depressive disorder NOS Acute encephalopathy secondary to uremia/toxic metabolic Continue buspirone 10 mg twice daily and sertraline 50 mg daily Acetaminophen 650 mg p.o. every 6 hours as needed fever/pain 1 through 10 See renal for treatment of uremia CV: Essential hypertension Currently on normal saline at 84 cc an hour Holding lisinopril 40 mg twice daily in light of acute injury. Hold metoprolol succinate 50 mg twice daily. Resume if clinically indicated Holding amlodipine 10 mg daily resume when clinically dictating EKG revealed peaked T waves. Heart rate in the 80s. CPK and troponin pending Resp: Acute respiratory insufficiency Tobaccoism Chest x-ray admission revealed hyperinflated lungs. No focal infiltrates Nasal cannula to maintain saturations greater than equal to 90% Incentive spirometry while awake Albuterol/ipratropium aerosols every 4 hours with albuterol aerosols every 2 hours as needed dyspnea Add budesonide 0.5/2 1 inhalation twice daily Tobacco cessation education provided Nicotine patch 14 mg daily GI: N.p.o. for now Pantoprazole for GI prophylaxis Docusate serum/senna 1 tablet twice daily for bowel regimen : Dumont catheter for accurate I's and O's in a critical patient Endo: Sliding scale insulin Accu-Cheks to maintain euglycemia/every 6 hours aspart insulin low regimen Check TSH Renal: Acute kidney injury with uremia Evaluated by Dr. Mason/nephrology. Emergent hemodialysis Avoid nephrotoxic medication Renal ultrasound/urine electrolytes including sodium, creatinine and eosinophils pending Monitor urine output Accurate I's and O's Heme: Normocytic anemia Thrombocytopenia Monitor CBC and coags. No indication for transfusion of blood products at this time ID: Received vancomycin, piperacillin/tazobactam and azithromycin in ED. Will treat with Pipracil/tazobactam and azithromycin day #1 Blood cultures x2, sputum, UA all ordered. Influenza a and B- MSK: PT evaluate and treat FEN: Hyperkalemia Hyper magnesium Undergoing acute hemodialysis.. Repeat potassium at 1700 hrs. today Received D50/insulin/bicarbonate calcium in the ED. Access -Right IJ hemodialysis catheter 1 placed 06/11 -Utilize peripheral IV Prophylaxis -GI -pantoprazole -DVT -SCD/heparin subcu Critical care time 35 minutes exclusive of procedures Code Status: Full code Discussed Condition With: Patient. Son. Granddaughter. Care plan discussed all questions answered. (1) Acute renal failure Qualifiers: Acute renal failure type: unspecified Qualified Code(s): N17.9 - Acute kidney failure, unspecified (3) COPD (chronic obstructive pulmonary disease) Qualifiers: COPD type: unspecified COPD (4) Depression Qualifiers: Depression Type: unspecified Qualified Code(s): F32.9 - Major depressive disorder, single episode, unspecified (7) Leukocytosis Qualifiers: Leukocytosis type: unspecified Qualified Code(s): D72.829 - Elevated white blood cell count, unspecified (9) Allergic rhinitis Qualifiers: Allergic rhinitis trigger: unspecified Allergic rhinitis seasonality: unspecified Qualified Code(s): J30.9 - Allergic rhinitis, unspecified
--- NOTE | 2018-06-11 11:32 | P.CONNP ---
History of Present Illness Service: Nephrology Consult date: 06/11/18 Requesting Physician: Susie Wolfe Reason for Consult: Hyperkalemia ARF Primary Care Provider: Pardeep Duke MD History of Present Illness: 77-year-old female with history of COPD, hypertension, chronic cigarette smoker who has not been feeling well for the past 2 weeks, she has some abdominal pain , nausea and vomiting and diarrhea and was given Bactrim, she felt weak tired lethargic and getting chills as well, presented to emergency with a potassium of 8.8 high BUN and creatinine, she denies knowledge of prior kidney disease, history obtained from the son at bedside. Review of Systems No: unobtainable due to mental status PMFSH - History History Provided By: Patient - Medical History Medical History: Medical History (Last Reviewed 06/11/18 @ 11:28 by Adi Mason MD) Depression HTN (hypertension) - Surgical History Surgical History: Surgical History (Last Updated 06/11/18 @ 12:48 by Jordan Aguiar MD) Surgical history unknown - Family History Family History: Family History (Last Updated 06/11/18 @ 12:48 by Jordan Aguiar MD) Other Paternal family history of emphysema - Social History I have reviewed the patient's Social History: Yes - Tobacco History Second Hand Smoke Exposure: Yes Tobacco Use In Past 30 Days: Yes Smoking Status: Current every day smoker Tobacco Type: Cigarettes - Alcohol History How Often Do You Have a Drink Containing Alcohol: Unable to Obtain - Substance Use History Substance History: Unable to Obtain - Travel History Recent Travel in the [place] Within the Last 8 Weeks: No Recent Travel Out of the Country Within the Last 8 Weeks: No - Immunization History Tetanus Immunization: Unsure Medications and Allergies Active Medications: Active Medications Acetaminophen (Tylenol) 650 mg PO UNSCH PRN PRN Reason: SEE LABEL COMMENTS Acetaminophen (Tylenol) 650 mg PO Q6H PRN PRN Reason: PAIN 1-10 AND/OR FEVER >101F Al Hydroxide/Mg Hydroxide (Milk Of Magndave Liq) 30 ml PO Q12H PRN PRN Reason: Mild Constipation Albuterol (Albuterol Neb (Nicole)) 2.5 mg NEB Q2HR NEB PRN PRN Reason: SHORTNESS OF BREATH/WHEEZING Albuterol (Duoneb Neb (Prn)) 1 ampul NEB Q4HR NEB NICOLE Bisacodyl (Dulcolax Supp) 10 mg RECTAL DAILY PRN PRN Reason: SEVERE CONSITIPATION Chlorhexidine Gluconate (Chlorhexidine 2% Cloth) 3 pack TOPICAL DAILY@0400 NICOLE Stop: 06/17/18 03:59 Chlorhexidine Gluconate (Chlorhexidine 2% Cloth) 3 pack TOPICAL DAILY@0400 PRN PRN Reason: Extra cloth needed Stop: 06/17/18 03:59 Clonidine HCl (Catapres) 0.1 mg PO UNSCH PRN PRN Reason: SEE LABEL COMMENTS Dextrose (D50w Vial) 50 ml IV.PUSH UNSCH PRN PRN Reason: PER HYPOGLYCEMIA PROTOCOL Diphenhydramine HCl (Benadryl) 25 mg PO UNSCH PRN PRN Reason: SEE LABEL COMMENTS Gelatin (Gelfoam 12 Mm/7 Mm Topical) 1 foam TOPICAL PRN PRN PRN Reason: help stop bleeding from site Gentamicin Sulfate (Gentamicin Inj) 20 mg OTHER WITH DIALYSIS PRN PRN Reason: Dwell Gentamycin Lock Glucagon (Glucagon Inj) 1 mg OTHER PRN PRN PRN Reason: for Hypoglycemia Protocol Heparin Sodium (Porcine) (Heparin Inj) 8,000 units OTHER WITH DIALYSIS PRN PRN Reason: for machine prime Heparin Sodium (Porcine) (Heparin Inj) 1,000 units OTHER WITH DIALYSIS PRN PRN Reason: Dwell Heparin to Fill Catheter Heparin Sodium (Porcine) (Heparin Inj) 5,000 units SQ Q12H [facility] Calcium Gluconate 2 gm/ (Dextrose) 120 mls @ 120 mls/hr IV.SIG ONCE ONE Stop: 06/11/18 11:39 Last Admin: 06/11/18 11:06 Dose: 120 mls/hr Albumin Human (Flexbumin 25% Inj) 100 mls @ 60 mls/hr IV.SIG WITH DIALYSIS PRN PRN Reason: hypotension / volume replace Sodium Chloride (Ns Inj) 1,000 mls @ 0 mls/hr OTHER .Q0M PRN PRN Reason: for prime and rinse back Sodium Chloride (Ns Inj) 1,000 mls @ 200 mls/hr OTHER .Q5H PRN PRN Reason: for dialyzer flush PRN Sodium Chloride (Ns Inj) 1,000 mls @ 0 mls/hr IV.CONT .Q0M PRN PRN Reason: hypotension / volume replace Sodium Chloride (Ns Inj) 1,000 mls @ 84 mls/hr IV.CONT .[id number] [facility] Insulin Aspart (Novolog Insulin Correctional Sugar Inj) 0 unit SQ Q6HR NICOLE; Protocol Lactulose (Lactulose Liq) 30 ml PO DAILY PRN PRN Reason: SEVERE CONSITIPATION Mannitol (Mannitol Inj) 12.5 gm IV.PUSH UNSCH PRN PRN Reason: hypotension / volume replace Nitroglycerin (Nitrostat Sl) 0.4 mg SL Q5M PRN PRN Reason: CHEST PAIN Ondansetron HCl (Zofran Inj) 4 mg IV.PUSH UNSCH PRN PRN Reason: NAUSEA OR VOMITING Ondansetron HCl (Zofran Inj) 4 mg IV.PUSH Q6H PRN PRN Reason: NAUSEA OR VOMITING Pantoprazole Sodium (Protonix Inj) 40 mg IV.PUSH DAILY [facility] Senna/Docusate Sodium (Meagan-Colace) 1 tab PO BID [facility] Sennosides (Senokot) 17.2 mg PO Q12H PRN PRN Reason: Moderate Constipation Sodium Chloride (Ns Flush) 5 ml IV.FLUSH PRN PRN PRN Reason: flush each lumen during HD Sodium Chloride (Ns Flush) 2 ml IV.FLUSH BID [facility] Sodium Chloride (Ns Flush) 2 ml IV.FLUSH PRN PRN PRN Reason: FLUSH AFTER USING IV ACCESS Allergies Allergy/AdvReac Type Severity Reaction Status Date / Time No Known Allergies Allergy Verified 06/11/18 09:25 Home Medications Medication Instructions Recorded Confirmed Type amlodipine 10 mg PO DAILY 06/11/18 06/11/18 History buspirone 10 mg PO BID 06/11/18 06/11/18 History cetirizine 10 mg PO DAILY 06/11/18 06/11/18 History lisinopril 40 mg PO DAILY 06/11/18 06/11/18 History metoprolol succinate 50 mg PO BID 06/11/18 06/11/18 History sertraline 50 mg PO DAILY 06/11/18 06/11/18 History sulfamethoxazole-trimethoprim 1 tab PO Q12H 06/11/18 06/11/18 History Exam Vital signs: Vital Signs 06/11/18 09:29 06/11/18 10:01 06/11/18 10:30 Temperature 97.0 F L Pulse Rate 67 116 H Respiratory Rate 17 Blood Pressure 159/58 H 109/65 Pulse Oximetry 95 06/11/18 11:00 Temperature Pulse Rate 128 H Respiratory Rate Blood Pressure 132/57 L Pulse Oximetry 97 Intake & Output 06/10/18 06/11/18 06/11/18 18:59 06:59 18:59 Intake Total 2600 / 2600 Balance 2600 / 2600 Weight 34.473 kg Intake: IV 2600 / 2600 Azithromycin Inj 500 MG In NS 250 / 250 Inj 250 ML @ 250 mls/hr IV.SIG STAT STA Rx#:[id number] Zosyn 4.5 GM Premix 4.5 gm In 100 / 100 100 ml @ 200 mls/hr IV.SIG STAT STA Rx#:[id number] NS Inj 1,000 ML @ 2000 mls/hr 1999 / 1999 IV.SIG Q30M NICOLE Rx#:[id number] Vancomycin Inj 1,000 MG In NS 250 / 250 Inj 250 ML @ 250 mls/hr IV.SIG STAT STA Rx#:[id number] Narrative: GENERAL: mal-nourished, well-developed frail patient. SKIN: Warm and dry. HEAD: Normocephalic. EYES: No scleral icterus. No injection or drainage. NECK: Supple, trachea midline. No JVD or lymphadenopathy. CARDIOVASCULAR: Tachycardia RESPIRATORY: Breath sounds equal bilaterally. No accessory muscle use. GASTROINTESTINAL: Abdomen soft, non-tender, nondistended. EXTREMITIES: No edema NEUROLOGICAL: Awake, alert, and confused Results - Lab Results 06/11/18 19:25 06/11/18 19:25 Most recent lab results ABG pH 7.09 (7.380-7.420) L* 06/11/18 09:28 ABG pCO2 14 mmHg (38-42) L* 06/11/18 09:28 ABG pO2 257 mmHg (61-120) H 06/11/18 09:28 ABG HCO3 4 mmol/L (22-26) L* 06/11/18 09:28 Calcium 8.9 mg/dL (8.5-10.1) 06/11/18 09:47 Magnesium 3.0 mg/dL (1.5-2.5) H 06/11/18 09:47 Assessment and Plan - Assessment (1) Acute renal failure Code(s): N17.9 - Acute kidney failure, unspecified Status: Acute Plan: Discussed with critical, vascular access at bedside Hemodialysis orders placed Complained to the family urgent need for dialysis EKG reviewed as abnormal peaked T waves in QRS widening seen Patient emergently treated in the emergency room calcium, D50, insulin, sodium bicarbonate. Patient seen during dialysis, vascath poorly working. (2) Acute hyperkalemia Code(s): E87.5 - Hyperkalemia Status: Acute (1) Acute renal failure Qualifiers: Acute renal failure type: unspecified Qualified Code(s): N17.9 - Acute kidney failure, unspecified
[2018-06-11] MEDS ORDERED: Heparin 2,000 UNITS/2 ML Vial (for IV use) IV.FLUSH PRN (12:00)
[2018-06-11 12:02] LABS: Thyroid Stimulating Hormone 1.88 uIU/mL (0.358-3.740)
--- NOTE | 2018-06-11 12:08 | P.PCN ---
[facility] Procedure Note REASON FOR PROCEDURE Hemodialysis access PROCEDURE PERFORMED Temporary dialysis catheter placement: Right IJ CONSENT Informed consent for procedure was obtained from pt. The risks and benefits of the procedure were discussed to include but limited to bleeding, clot formation , infection, and even . ANESTHESIA Local injection of 1% Lidocaine DESCRIPTION OF THE PROCEDURE The patient was placed in supine, mild Trendelenburg position. The area was exposed and cleansed with ChloraPrep, times two. Large sterile drape was used to cover the patient, with the site exposed, under sterile conditions including cap, face mask, sterile gown, and sterile gloves. On single attempt, the introducer needle was inserted with negative pressure in syringe and venous flash was obtained. The guide wire was then advanced without any restriction and the needle was removed. The dilator was used without any complications. Using Seldinger technique the double lumen temporary dialysis catheter was advanced over the guide wire to a depth of 17 centimeters. The guide wire was removed. All ports were aspirated with dark venous blood return and flushed easily with sterile saline. All ports were capped. Antibiotic disc was placed around central line at puncture site. The central line was secured to the skin with two interrupted 2.0 silk sutures. The area was bandaged with sterile see- through central line bandage. RADIOLOGICAL DATA Ultrasound guidance was used to locate right IJ. Doppler/color flow was used to confirm venous flow. Stat chest x-ray was ordered for line placement. COMPLICATIONS: No apparent complications ESTIMATED BLOOD LOSS: Less than 1 cc
[2018-06-11] MEDS: Sod Chloride 0.9% Inj 1,000 ML IV.CONT SCH (12:22)
[2018-06-11] MEDS: Heparin - SQ 10,000 UNITS/ML Vial SQ SCH ×2 (12:22→23:35)
--- NOTE | 2018-06-11 12:28 | XR ---
EXAM DATE: 06/11/2018 12:22 PM EST AGE/SEX: 77 years / Female INDICATIONS: Central line placement. CLINICAL DATA: This is the patient's initial encounter. Patient reports that signs and symptoms have been present for 1 day and indicates a pain score of Nonresponsive. MEDICAL/SURGICAL HISTORY: Non-responsive. Non-responsive. [place] [facility] [place]. . FINDINGS: 2 AP supine portable views of the chest demonstrates the lungs to be symmetrically aerated without ev idence of mass, infiltrate or effusion. The cardiomediastinal contours are unremarkable. Osseous st ructures are intact. There is been interval placement of right internal jugular central venous line w ith the tip projected over the superior vena cava. There is no pneumothorax. Atherosclerotic changes are again noted in the aorta. CONCLUSION: 1. Interval placement of right internal jugular central venous line with no pneumothorax. 2. No acute cardiopulmonary disease. Electronically signed by: Kaushal Waite MD Board Certified Radiologist 06/11/2018 12:27 PM EST
[2018-06-11] MEDS: Insulin NovoLOG Aspart Correctional Sugar Inj SQ SCH ×3 (12:54→23:35)
--- NOTE | 2018-06-11 14:11 | US ---
EXAM DATE: 06/11/2018 2:05 PM EST AGE/SEX: 77 years / Female INDICATIONS: Increased BUN/Creatinine. CLINICAL DATA: This is the patient's initial encounter. Patient reports that signs and symptoms have been present for 1 day and indicates a pain score of 0/10. MEDICAL/SURGICAL HISTORY: . Acute kidney injury. Allergic rhinitis. Anxiety. COPD. Depression. HTN, Hyperkalemia. Leukocytosis. Normocytic anemia. Tobacco abuse. None. COMPARISON: No prior exams available for comparison. MEASUREMENTS: Right Kidney:__6.4 x 2.9 x 2.4 cm Left Kidney:__10.4 x 5.2 x 5.3 cm FINDINGS: Right Kidney: Small echogenic right kidney probably providing little renal function. Several small cy stic areas are adjacent to small kidney Left Kidney: Normal echogenicity and cortical thickness. No mass or hydronephrosis. Bladder: Dumont catheter is present. Bladder decompressed. Other: Trace free fluid CONCLUSION: 1. Small echogenic right kidney 2. Normal left kidney 3. Trace ascites Electronically signed by: Xu Mcneal MD Board Certified Radiologist 06/11/2018 2:10 PM EST
[2018-06-11 14:21] LABS: Creatinine,Urine Random 113 mg/dL (27-300); Sodium,Urine Random 60 meq/L
[2018-06-11] MEDS: Albumin Human 25% Inj 100 ML IV.SIG PRN ×2 (14:43→15:29)
--- NOTE | 2018-06-11 16:23 | XR ---
EXAM DATE: 06/11/2018 4:17 PM EST AGE/SEX: 77 years / Female INDICATIONS: Hemodialysis catheter repositioned. CLINICAL DATA: This is the patient's subsequent encounter. Patient reports that signs and symptoms h ave been present for 3 days and indicates a pain score of Nonresponsive. MEDICAL/SURGICAL HISTORY: Non-responsive. Non-responsive. COMPARISON: [facility], CHEST 1V SINGLE AP, 06/11/2018. . FINDINGS: Hyperinflation. Aortic calcification. No consolidation or effusion. Right dialysis catheter is noted and the distal tip projects over the expected location of the SVC. CONCLUSION: Hyperinflation. Electronically signed by: Juan Arroyo MD Board Certified Radiologist 06/11/2018 4:22 PM EST
[2018-06-11 16:25] LABS: Hepatitis A IgM Antibody Nonreactive (Nonreactive)
[2018-06-11 16:26] LABS: Hepatitits B Surface Antigen Nonreactive (Nonreactive)
[2018-06-11] MEDS ORDERED: Sod Chloride 0.9% Inj 1,000 ML IV.SIG ONE (17:20)
[2018-06-11 17:34] LABS: ABG Base Excess 1.1 mmol/L (-2-2); ABG PCO2 20 mmHg (38-42); ABG PO2 78 mmHG (61-120)
[2018-06-11] MEDS: Piperacil/Tazo 2.25 GM Premix 2.25 GM/50 ML PIGGYBACK IV.SIG SCH (17:57)
[2018-06-11 19:41] LABS: Mean Corpuscular Hemoglobin 32.1 pg (27.0-34.0); Mean Corpuscular Volume 89.4 fL (80.0-100.0); Mean Platelet Volume 7.7 fL (7.0-11.0); Platelet Count 171 th/mm3 (150-450); Red Blood Count 2.06 mil/mm3 (4.00-5.30); Red Cell Distribution Width 14.4 % (11.6-17.2); White Blood Count 11.2 th/mm3 (4.0-11.0)
[2018-06-11 19:49] LABS: INR 1.2 Ratio; Prothrombin Time 12.3 sec (9.8-11.6)
[2018-06-11 19:51] LABS: Hematocrit 18.4 % (35.0-46.0); Hemoglobin 6.6 gm/dL (11.6-15.3)
[2018-06-11 19:55] LABS: Calcium 6.7 mg/dL (8.5-10.1); Carbon Dioxide 19.5 meq/L (21.0-32.0); Potassium 3.3 meq/L (3.5-5.1)
[2018-06-11 20:04] LABS: Albumin 3.2 g/dL (3.4-5.0)
[2018-06-11 20:07] LABS: Calcium-Albumin Corrected 7.3 mg/dL (8.5-10.1)
[2018-06-11] MEDS: Senna/Docusate Sodium 8.6/50 MG Tablet PO SCH (22:08)
--- NOTE | 2018-06-11 22:34 | ECG ---
Date Performed: 06/11/2018 Time Performed: 09:30:13 PTAGE: 77 years EKG: ECTOPIC ATRIAL RHYTHM WITH OCCASIONAL VENTRICULAR PREMATURE COMPLEXES LEFT VENTRICULAR HYPE RTROPHY AND ST-T CHANGE ABNORMAL ECG NO PREVIOUS TRACING DOCTOR: Kodak Hernandez Interpretating Date/Time 06/11/2018 22:32:54
[2018-06-12] MEDS: Sod Chloride 0.9% Inj 1,000 ML IV.CONT SCH ×3 (02:41→23:20)
[2018-06-12] MEDS: Piperacil/Tazo 2.25 GM Premix 2.25 GM/50 ML PIGGYBACK IV.SIG SCH ×3 (02:47→17:04)
[2018-06-12] MEDS: Chlorhexidine Gluconate 2% 1 Pack (2 Cloths) TOPICAL SCH (03:24)
[2018-06-12] MEDS ORDERED: Chlorhexidine Gluconate 2% 1 Pack (2 Cloths) TOPICAL PRN (04:00)
[2018-06-12 06:21] LABS: Baso % (Auto) 0.4 % (0.0-2.0); Eos % (Auto) 0.2 % (0.0-4.0); Hematocrit 25.8 % (35.0-46.0); Hemoglobin 8.9 gm/dL (11.6-15.3); Lymph # (Auto) 0.8 th/mm3 (1.0-4.8); Lymph % (Auto) 8.6 % (9.0-44.0); Mean Corpuscular HGB Conc 34.7 % (32.0-36.0); Mean Corpuscular Hemoglobin 31.1 pg (27.0-34.0); Mean Corpuscular Volume 89.6 fL (80.0-100.0); Mono # (Auto) 0.8 th/mm3 (0.0-0.9); Mono % (Auto) 8.2 % (0.0-8.0); Neut # (Auto) 7.6 th/mm3 (1.8-7.7); Neut % (Auto) 82.6 % (16.0-70.0); Platelet Count 179 th/mm3 (150-450); Red Blood Count 2.88 mil/mm3 (4.00-5.30); Red Cell Distribution Width 14.7 % (11.6-17.2); White Blood Count 9.2 th/mm3 (4.0-11.0)
[2018-06-12] MEDS: Insulin NovoLOG Aspart Correctional Sugar Inj SQ SCH ×3 (06:23→17:04)
[2018-06-12 06:53] LABS: Albumin 3.1 g/dL (3.4-5.0); Calcium 7.2 mg/dL (8.5-10.1); Magnesium 1.9 mg/dL (1.5-2.5); Phosphorus 4.6 mg/dL (2.5-4.9); Potassium 3.8 meq/L (3.5-5.1); Total Protein 5.1 g/dL (6.4-8.2)
--- NOTE | 2018-06-12 08:17 | P.PNCC ---
Subjective Subjective Remarks/Hospital Course: This is a 77-year-old female. Admission 06/11/2018. Past medical history includes chronic tobacco abuse, COPD, depression/anxiety, hypertension and allergic rhinitis. Patient presents to [facility] In the ED, patient was noted to have leukocytosis, normocytic anemia and elevated potassium above 8. Creatinine is currently 10. BUN is elevated. Patient is quite confused. EKG reveals peaked T waves. Dr. Mason from nephrology was consulted and recommended emergent hemodialysis.. Hemodialysis cath was placed patient was transported to room [facility] to begin this procedure Subjective 06/12: Status post hemodialysis yesterday. Potassium is currently 3.8. Requesting advance diet. Hemodynamically stable. More lucid today. Objective Vital Signs / I&O: Vital Signs 06/11/18 09:29 06/11/18 10:01 06/11/18 10:30 Temperature 97.0 F L Pulse Rate 67 116 H Respiratory Rate 17 Blood Pressure 159/58 H 109/65 Pulse Oximetry 95 06/11/18 11:00 06/11/18 12:35 06/11/18 12:46 Temperature 95.9 F L Pulse Rate 128 H 74 Respiratory Rate 29 H Blood Pressure 132/57 L 106/66 117/94 H Pulse Oximetry 97 94 L 06/11/18 13:00 06/11/18 14:00 06/11/18 15:00 Temperature Pulse Rate 69 65 82 Respiratory Rate 31 H 11 L 16 Blood Pressure 117/51 L 92/44 L 109/54 L Pulse Oximetry 85 L 100 100 06/11/18 15:48 06/11/18 16:00 06/11/18 17:00 Temperature 98.3 F Pulse Rate 90 91 H 96 H Respiratory Rate 18 18 20 Blood Pressure 138/60 97/53 L Pulse Oximetry 99 98 06/11/18 18:00 06/11/18 19:00 06/11/18 20:00 Temperature 98.5 F Pulse Rate 116 H 118 H 103 H Respiratory Rate 20 19 15 Blood Pressure 95/48 L 108/52 L 110/58 L Pulse Oximetry 94 L 99 98 06/11/18 21:00 06/11/18 22:00 06/11/18 22:15 Temperature Pulse Rate 116 H 118 H 99 H Respiratory Rate 17 16 18 Blood Pressure 115/51 L 96/55 L Pulse Oximetry 98 100 06/11/18 22:16 06/11/18 22:53 06/11/18 23:00 Temperature 98.6 F Pulse Rate 89 100 H Respiratory Rate 11 L 16 Blood Pressure 104/51 L 118/57 L Pulse Oximetry 95 100 100 06/11/18 23:11 06/11/18 23:55 06/12/18 00:00 Temperature 97.8 F 97.8 F Pulse Rate 92 H 82 92 H Respiratory Rate 13 17 11 L Blood Pressure 107/48 L 123/59 L Pulse Oximetry 100 100 06/12/18 01:00 06/12/18 02:00 06/12/18 03:00 Temperature 98.7 F Pulse Rate 105 H 94 H 92 H Respiratory Rate 11 L 16 12 Blood Pressure 141/60 H 119/58 L 131/57 L Pulse Oximetry 100 100 96 06/12/18 03:27 06/12/18 03:58 06/12/18 04:00 Temperature 98.7 F Pulse Rate 96 H 80 78 Respiratory Rate 12 17 12 Blood Pressure 131/57 L 116/56 L Pulse Oximetry 96 100 06/12/18 05:00 06/12/18 06:00 Temperature Pulse Rate 98 H 88 Respiratory Rate 14 21 Blood Pressure 126/60 119/58 L Pulse Oximetry 95 94 L Intake & Output 06/11/18 06/12/18 06/12/18 18:59 06:59 18:59 Intake Total 3970 / 3970 450 / 450 1000 / 1000 Output Total 375 / 375 250 / 250 Balance 3595 / 3595 200 / 200 1000 / 1000 Weight 37 kg 40 kg Intake: IV 3970 / 3970 50 / 50 1000 / 1000 NS Inj 1,000 ML @ 84 mls/hr IV. 1000 / 1000 CONT .[id number] L[facility] Rx#:[id number] Flexbumin 25% Inj 100 ML @ 60 200 / 200 mls/hr IV.SIG WITH DIALYSIS PRN Rx#:[id number] Azithromycin Inj 500 MG In NS 250 / 250 Inj 250 ML @ 250 mls/hr IV.SIG STAT STA Rx#:[id number] Calcium Gluconate Inj 2 GM In 120 / 120 D5W Inj 100 ML @ 120 mls/hr IV. SIG ONCE ONE Rx#:[id number] Zosyn 2.25 GM Premix 2.25 gm In 50 / 50 50 / 50 50 ml @ 100 mls/hr IV.SIG Q8H L[facility] Rx#:[id number] Zosyn 4.5 GM Premix 4.5 gm In 100 / 100 100 ml @ 200 mls/hr IV.SIG STAT STA Rx#:[id number] NS Inj 1,000 ML @ Wide Open IV. 3000 / 3000 SIG BOLUS ONE Rx#:[id number] Vancomycin Inj 1,000 MG In NS 250 / 250 Inj 250 ML @ 250 mls/hr IV.SIG STAT STA Rx#:[id number] Oral 0 / 0 Intake (Blood Product) Amt 400 / 400 Rbc As-3 Leukoreduced Unit 400 / 400 [id number] Output: Urine 250 / 250 Urine Amount (Catheter) 375 / 375 Indwelling Urethral Catheter 375 / 375 Other: Date of Last Bowel Movement 06/12/18 # Bowel Movements 0 1 # Incontinent Bowel Movements 1 Weight On Admission 37 kg Result Diagrams: 06/12/18 05:59 06/12/18 05:59 Other Results: Microbiology 06/11/18 09:50 Nasal Wash Influenza Types A,B Antigen - Final Negative for FLU A and B antigen Infection due to influenza A or B cannot be ruled out since the antigen present in the sample may be below the detection limit of the test. Imaging: Chest X-Ray 06/11/18 00:00 CONCLUSION: Hyperinflation. Chest X-Ray 06/11/18 09:34 CONCLUSION: No acute cardiopulmonary disease. Abdomen/Bladder Ultrasound 06/11/18 11:19 CONCLUSION: 1. Small echogenic right kidney 2. Normal left kidney 3. Trace ascites Chest X-Ray 06/11/18 12:00 CONCLUSION: 1. Interval placement of right internal jugular central venous line with no pneumothorax. 2. No acute cardiopulmonary disease. Objective Remarks: GENERAL: 77-year-old female currently resting in bed in no acute distress SKIN: Warm and dry. HEAD: Atraumatic. Normocephalic. EYES: Pupils equal and round. No scleral icterus. No injection or drainage. ENT: No nasal bleeding or discharge. Mucous membranes pink and moist. NECK: Trachea midline. No JVD. Right IJ Hemo dialysis catheter is clean dry and intact CARDIOVASCULAR: Regular rate and rhythm. S1, S2 predose 4 per RESPIRATORY: No accessory muscle use. Clear to auscultation. Breath sounds equal bilaterally. GASTROINTESTINAL: Abdomen soft, non-tender, scaphoid. Hypoactive bowel sounds are present MUSCULOSKELETAL: Extremities without clubbing, cyanosis, or edema. NEUROLOGICAL: Awake and alert. No obvious cranial nerve deficits. Motor grossly within normal limits. Five out of 5 muscle strength in the arms and legs. Normal speech. Assessment and Plan - Problem List (1) Acute renal failure Code(s): N17.9 - Acute kidney failure, unspecified Status: Acute (2) Acute hyperkalemia Code(s): E87.5 - Hyperkalemia Status: Acute (3) COPD (chronic obstructive pulmonary disease) Code(s): J44.9 - Chronic obstructive pulmonary disease, unspecified Status: Chronic (4) Depression Code(s): F32.9 - Major depressive disorder, single episode, unspecified Status : Chronic (5) Anxiety Code(s): F41.9 - Anxiety disorder, unspecified Status: Chronic (6) Normocytic anemia Code(s): D64.9 - Anemia, unspecified Status: Acute (7) Leukocytosis Code(s): D72.829 - Elevated white blood cell count, unspecified Status: Acute (8) Tobacco abuse Code(s): Z72.0 - Tobacco use Status: Chronic (9) Allergic rhinitis Code(s): J30.9 - Allergic rhinitis, unspecified Status: Chronic - Assessment and Plan Plan: Neuro/Psych: Depressive disorder NOS Acute encephalopathy secondary to uremia/toxic metabolic Continue buspirone 10 mg twice daily and sertraline 50 mg daily Acetaminophen 650 mg p.o. every 6 hours as needed fever/pain 1 through 10 See renal for treatment of uremia CV: Essential hypertension Currently on normal saline at 84 cc an hour Holding lisinopril 40 mg twice daily in light of acute injury. Hold metoprolol succinate 50 mg twice daily. Resume if clinically indicated Holding amlodipine 10 mg daily restart at 5 mg daily today 06/12 EKG revealed peaked T waves. Heart rate in the 80s. Resp: Acute respiratory insufficiency Tobaccoism Chest x-ray admission revealed hyperinflated lungs. No focal infiltrates Nasal cannula to maintain saturations greater than equal to 92% Incentive spirometry while awake Albuterol/ipratropium aerosols every 4 hours with albuterol aerosols every 2 hours as needed dyspnea Add budesonide 0.5/2 1 inhalation twice daily Tobacco cessation education provided Nicotine patch 14 mg daily GI: Elevated AST Hypoalbuminemia Elevated lipase N.p.o. for now. Advance to renal diet today 06/12 Pantoprazole for GI prophylaxis Docusate serum/senna 1 tablet twice daily for bowel regimen No abdominal pain. A symptomatically. Will recheck lipase in a.m. 06/13 : Dumont catheter for accurate I's and O's in a critical patient Endo: Sliding scale insulin Accu-Cheks to maintain euglycemia/every 6 hours aspart insulin low regimen 1.88 TSH Renal: Acute kidney injury with uremia Evaluated by Dr. Mason/nephrology. Emergent hemodialysis on 06/11. Further treatment per Dr. Mason Avoid nephrotoxic medication Renal ultrasound revealed small right echogenic kidney. Urine eosinophils Monitor urine output Accurate I's and O's Heme: Normocytic anemia Monitor CBC and coags. No indication for transfusion of blood products at this time ID: Received vancomycin, piperacillin/tazobactam and azithromycin in ED. Will treat with piperacillin/tazobactam and azithromycin day #2 Blood cultures x2, sputum, UA all ordered. Influenza a and B- MSK: PT evaluate and treat FEN: Hypernatremia Undergoing acute hemodialysis.. Repeat potassium at 1700 hrs. today Received D50/insulin/bicarbonate calcium in the ED. Access -Right IJ hemodialysis catheter 2 placed 06/11 -Utilize peripheral IV Prophylaxis -GI -pantoprazole -DVT -SCD/heparin subcu Level 2 follow-up Stable from critical care medicine standpoint assign care to hospitalist team . Transfer to general medical floor Code Status: Full code Discussed Condition With: Patient. No family available. Care plan discussed and all questions answered (1) Acute renal failure Qualifiers: Acute renal failure type: unspecified Qualified Code(s): N17.9 - Acute kidney failure, unspecified (3) COPD (chronic obstructive pulmonary disease) Qualifiers: COPD type: unspecified COPD Qualified Code(s): J44.9 - Chronic obstructive pulmonary disease, unspecified (4) Depression Qualifiers: Depression Type: unspecified Qualified Code(s): F32.9 - Major depressive disorder, single episode, unspecified (7) Leukocytosis Qualifiers: Leukocytosis type: unspecified Qualified Code(s): D72.829 - Elevated white blood cell count, unspecified (9) Allergic rhinitis Qualifiers: Allergic rhinitis trigger: unspecified Allergic rhinitis seasonality: unspecified Qualified Code(s): J30.9 - Allergic rhinitis, unspecified
[2018-06-12] MEDS: amLODIPine 5 MG Tablet PO SCH (09:04)
[2018-06-12] MEDS: Pantoprazole Inj 40 MG Vial IV.PUSH SCH (09:05)
[2018-06-12] MEDS: Sertraline 50 MG Tablet PO SCH (09:05)
[2018-06-12] MEDS: Senna/Docusate Sodium 8.6/50 MG Tablet PO SCH (09:05)
[2018-06-12] MEDS: Azithromycin Inj 500 MG in Sodium Chlor 0.9% Inj 250 ML IV.SIG SCH (12:47)
[2018-06-12] MEDS: Heparin - SQ 10,000 UNITS/ML Vial SQ SCH ×2 (12:48→22:00)
--- NOTE | 2018-06-12 17:11 | P.PNNP ---
Subjective Interval history: Patient feels better denies complaint Physical Exam Vital signs: Vital Signs 06/11/18 18:00 06/11/18 19:00 06/11/18 20:00 Temperature 98.5 F Pulse Rate 116 H 118 H 103 H Respiratory Rate 20 19 15 Blood Pressure 95/48 L 108/52 L 110/58 L Pulse Oximetry 94 L 99 98 06/11/18 21:00 06/11/18 22:00 06/11/18 22:15 Temperature Pulse Rate 116 H 118 H 99 H Respiratory Rate 17 16 18 Blood Pressure 115/51 L 96/55 L Pulse Oximetry 98 100 06/11/18 22:16 06/11/18 22:53 06/11/18 23:00 Temperature 98.6 F Pulse Rate 89 100 H Respiratory Rate 11 L 16 Blood Pressure 104/51 L 118/57 L Pulse Oximetry 95 100 100 06/11/18 23:11 06/11/18 23:55 06/12/18 00:00 Temperature 97.8 F 97.8 F Pulse Rate 92 H 82 92 H Respiratory Rate 13 17 11 L Blood Pressure 107/48 L 123/59 L Pulse Oximetry 100 100 06/12/18 01:00 06/12/18 02:00 06/12/18 03:00 Temperature 98.7 F Pulse Rate 105 H 94 H 92 H Respiratory Rate 11 L 16 12 Blood Pressure 141/60 H 119/58 L 131/57 L Pulse Oximetry 100 100 96 06/12/18 03:27 06/12/18 03:58 06/12/18 04:00 Temperature 98.7 F Pulse Rate 96 H 80 78 Respiratory Rate 12 17 12 Blood Pressure 131/57 L 116/56 L Pulse Oximetry 96 100 06/12/18 05:00 06/12/18 05:15 06/12/18 05:30 Temperature Pulse Rate 98 H 94 H 94 H Respiratory Rate 14 13 14 Blood Pressure 126/60 122/58 L 127/62 Pulse Oximetry 95 96 96 06/12/18 05:45 06/12/18 06:00 06/12/18 06:01 Temperature Pulse Rate 97 H 88 93 H Respiratory Rate 17 21 14 Blood Pressure 131/60 119/58 L 119/58 L Pulse Oximetry 94 L 94 L 95 06/12/18 06:15 06/12/18 06:30 06/12/18 06:45 Temperature Pulse Rate 94 H 91 H 92 H Respiratory Rate 39 H 17 18 Blood Pressure 130/61 121/56 L 139/63 Pulse Oximetry 95 95 95 06/12/18 07:00 06/12/18 07:15 06/12/18 07:30 Temperature Pulse Rate 85 83 98 H Respiratory Rate 16 21 20 Blood Pressure 118/55 L 110/51 L 143/63 H Pulse Oximetry 96 97 93 L 06/12/18 07:45 06/12/18 08:00 06/12/18 08:15 Temperature 98.8 F Pulse Rate 91 H 96 H 91 H Respiratory Rate 18 20 23 Blood Pressure 131/60 142/63 H 135/63 Pulse Oximetry 95 96 97 06/12/18 08:30 06/12/18 08:34 06/12/18 08:37 Temperature Pulse Rate 85 91 H Respiratory Rate 23 15 Blood Pressure 144/65 H 141/63 H Pulse Oximetry 99 100 06/12/18 08:45 06/12/18 09:00 06/12/18 09:15 Temperature Pulse Rate 84 102 H 100 H Respiratory Rate 18 22 17 Blood Pressure 124/58 L 140/58 L 134/60 Pulse Oximetry 99 96 97 06/12/18 09:30 06/12/18 09:45 06/12/18 10:00 Temperature Pulse Rate 103 H 104 H 103 H Respiratory Rate 21 30 H 25 H Blood Pressure 125/55 L 133/59 L Pulse Oximetry 97 97 96 06/12/18 10:08 06/12/18 11:00 06/12/18 11:36 Temperature Pulse Rate 100 H 97 H 100 H Respiratory Rate 26 H 29 H 42 H Blood Pressure 116/56 L 127/58 L Pulse Oximetry 96 97 97 06/12/18 12:00 06/12/18 12:07 06/12/18 13:00 Temperature Pulse Rate 90 91 H 122 H Respiratory Rate 19 24 23 Blood Pressure 136/62 125/62 Pulse Oximetry 95 84 L 06/12/18 14:00 06/12/18 16:15 Temperature 97.8 F Pulse Rate 108 H 99 H Respiratory Rate 15 18 Blood Pressure 133/56 L 156/70 H Pulse Oximetry 96 96 Intake & Output 06/11/18 06/12/18 06/12/18 18:59 06:59 18:59 Intake Total 3970 / 3970 450 / 450 1300 / 1300 Output Total 375 / 375 250 / 250 Balance 3595 / 3595 200 / 200 1300 / 1300 Weight 37 kg 40 kg Intake: IV 3970 / 3970 50 / 50 1300 / 1300 NS Inj 1,000 ML @ 84 mls/hr IV. 1000 / 1000 CONT .[id number] [facility] Rx#:[id number] Flexbumin 25% Inj 100 ML @ 60 200 / 200 mls/hr IV.SIG WITH DIALYSIS PRN Rx#:[id number] Azithromycin Inj 500 MG In NS 250 / 250 250 / 250 Inj 250 ML @ 250 mls/hr IV.SIG Q24H LIT Rx#:[id number] Calcium Gluconate Inj 2 GM In 120 / 120 D5W Inj 100 ML @ 120 mls/hr IV. SIG ONCE ONE Rx#:[id number] Zosyn 2.25 GM Premix 2.25 gm In 50 / 50 50 / 50 50 / 50 50 ml @ 100 mls/hr IV.SIG Q8H [facility] Rx#:[id number] Zosyn 4.5 GM Premix 4.5 gm In 100 / 100 100 ml @ 200 mls/hr IV.SIG STAT STA Rx#:[id number] NS Inj 1,000 ML @ Wide Open IV. 3000 / 3000 SIG BOLUS ONE Rx#:[id number] Vancomycin Inj 1,000 MG In NS 250 / 250 Inj 250 ML @ 250 mls/hr IV.SIG STAT STA Rx#:[id number] Oral 0 / 0 Intake (Blood Product) Amt 400 / 400 Rbc As-3 Leukoreduced Unit 400 / 400 [id number] Output: Urine 250 / 250 Urine Amount (Catheter) 375 / 375 Indwelling Urethral Catheter 375 / 375 Other: Date of Last Bowel Movement 06/12/18 06/12/18 # Bowel Movements 0 1 # Incontinent Bowel Movements 1 Weight On Admission 37 kg Narrative: GENERAL: mal-nourished, well-developed frail patient. SKIN: Warm and dry. HEAD: Normocephalic. EYES: No scleral icterus. No injection or drainage. NECK: Supple, trachea midline. No JVD or lymphadenopathy. CARDIOVASCULAR: Regular rate and rhythm RESPIRATORY: Breath sounds equal bilaterally. No accessory muscle use. GASTROINTESTINAL: Abdomen soft, non-tender, nondistended. EXTREMITIES: No edema NEUROLOGICAL: Awake, alert, - Urinary Catheter Management Indwelling Urethral Catheter Cath placed during this visit: yes, but has since been removed by the nurse Reason for continuing: Decision to DC catheter Insertion date: 06/11/18 Insertion time: 10:00 Removal date: 06/12/18 Removal time: 13:55 Assessment and Plan - Assessment (1) Acute renal failure Code(s): N17.9 - Acute kidney failure, unspecified Status: Acute Qualifiers: Acute renal failure type: unspecified Qualified Code(s): N17.9 - Acute kidney failure, unspecified Plan: Had dialysis yesterday and creatinine declined currently at 2.8, potassium 3.8 We will continue to monitor to see if she needs further dialysis Did receive 1 unit of packed red blood cells for low hemoglobin currently 8.9 Patient states she is passing urine follow BMP (2) Acute hyperkalemia Code(s): E87.5 - Hyperkalemia Status: Acute
[2018-06-13] MEDS ORDERED: Metoprolol Inj 5 MG/5 ML Vial IV.PUSH STA (00:05)
[2018-06-13] MEDS ORDERED: Metoprolol Inj 5 MG/5 ML Vial ONE (00:08)
[2018-06-13] MEDS: Insulin NovoLOG Aspart Correctional Sugar Inj SQ SCH ×4 (00:37→17:58)
[2018-06-13] MEDS: Senna/Docusate Sodium 8.6/50 MG Tablet PO SCH ×3 (00:38→21:49)
[2018-06-13] MEDS: Metoprolol Tartrate 25 MG Tablet PO SCH ×4 (00:40→21:50)
[2018-06-13] MEDS: Sod Chloride 0.9% Inj 1,000 ML IV.CONT SCH ×3 (01:37→14:38)
[2018-06-13] MEDS: Piperacil/Tazo 2.25 GM Premix 2.25 GM/50 ML PIGGYBACK IV.SIG SCH ×3 (02:30→17:57)
[2018-06-13] MEDS: Chlorhexidine Gluconate 2% 1 Pack (2 Cloths) TOPICAL SCH (04:00)
[2018-06-13 08:08] LABS: Baso % (Auto) 0.3 % (0.0-2.0); Eos # (Auto) 0.1 th/mm3 (0.0-0.4); Eos % (Auto) 0.9 % (0.0-4.0); Hematocrit 29.4 % (35.0-46.0); Hemoglobin 10.4 gm/dL (11.6-15.3); Lymph # (Auto) 1.4 th/mm3 (1.0-4.8); Lymph % (Auto) 13.7 % (9.0-44.0); Mean Corpuscular HGB Conc 35.3 % (32.0-36.0); Mean Corpuscular Hemoglobin 31.2 pg (27.0-34.0); Mean Corpuscular Volume 88.4 fL (80.0-100.0); Mean Platelet Volume 8.2 fL (7.0-11.0); Mono # (Auto) 0.9 th/mm3 (0.0-0.9); Mono % (Auto) 8.5 % (0.0-8.0); Neut % (Auto) 76.6 % (16.0-70.0); Platelet Count 171 th/mm3 (150-450); Red Blood Count 3.33 mil/mm3 (4.00-5.30); Red Cell Distribution Width 15.3 % (11.6-17.2); White Blood Count 10.4 th/mm3 (4.0-11.0)
[2018-06-13] MEDS: Pantoprazole Inj 40 MG Vial IV.PUSH SCH (08:15)
[2018-06-13] MEDS: Sertraline 50 MG Tablet PO SCH (08:15)
[2018-06-13] MEDS: amLODIPine 5 MG Tablet PO SCH (08:15)
[2018-06-13 08:36] LABS: Albumin 2.8 g/dL (3.4-5.0); Calcium 7.1 mg/dL (8.5-10.1); Carbon Dioxide 23.5 meq/L (21.0-32.0); Magnesium 1.5 mg/dL (1.5-2.5); Potassium 3.2 meq/L (3.5-5.1)
[2018-06-13 08:38] LABS: Phosphorus 2.3 mg/dL (2.5-4.9); Total Protein 5.2 g/dL (6.4-8.2)
--- NOTE | 2018-06-13 11:52 | P.PNIM ---
Subjective Interval history: Patient without active complaints of chest pain, palpitation at this time but is noted to have elevated heart rate will get EKG I had the opportunity to speak with patient's primary medical physician on outpatient side dr castro who explained to me that patient had recently been ill and visited office and was given a prescription for Bactrim along with prednisone. Previously patient with no renal abnormalities. Patient is a long- standing smoker. Patient was given slip for outpatient lab work but did not obtain. Last lab work from one summer ago was normal renal function Physical Exam Vital signs: Vital Signs 06/12/18 12:00 06/12/18 12:07 06/12/18 13:00 Temperature Pulse Rate 90 91 H 122 H Respiratory Rate 19 24 23 Blood Pressure 136/62 125/62 Pulse Oximetry 95 84 L 06/12/18 14:00 06/12/18 16:15 06/12/18 20:00 Temperature 97.8 F Pulse Rate 108 H 99 H Respiratory Rate 15 18 20 Blood Pressure 133/56 L 156/70 H Pulse Oximetry 96 96 06/12/18 20:03 06/12/18 20:25 06/13/18 00:00 Temperature 97.3 F L 98.1 F Pulse Rate 97 H 100 H 169 H Respiratory Rate 18 18 19 Blood Pressure 179/75 H 129/62 Pulse Oximetry 96 96 94 L 06/13/18 00:15 06/13/18 00:20 06/13/18 02:00 Temperature 98.0 F 98.0 F Pulse Rate 96 H 77 79 Respiratory Rate 21 18 Blood Pressure 134/69 156/69 H Pulse Oximetry 91 L 90 L 06/13/18 03:00 06/13/18 04:00 06/13/18 04:25 Temperature 98.2 F 98.4 F Pulse Rate 99 H 70 Respiratory Rate 20 19 21 Blood Pressure 180/66 H 173/74 H Pulse Oximetry 95 95 06/13/18 07:10 06/13/18 07:48 06/13/18 08:00 Temperature Pulse Rate 140 H 100 H 131 H Respiratory Rate 20 18 Blood Pressure 133/86 Pulse Oximetry 88 L 95 06/13/18 11:15 Temperature Pulse Rate 115 H Respiratory Rate 16 Blood Pressure Pulse Oximetry Intake & Output 06/12/18 06/13/18 06/13/18 18:59 06:59 18:59 Intake Total 1850 / 1850 1050 / 1050 Balance 1850 / 1850 1050 / 1050 Weight 48.2 kg Intake: IV 1350 / 1350 1050 / 1050 NS Inj 1,000 ML @ 84 mls/hr IV. 1000 / 1000 1000 / 1000 CONT .[id number] LIT Rx#:[id number] Azithromycin Inj 500 MG In NS 250 / 250 Inj 250 ML @ 250 mls/hr IV.SIG Q24H LIT Rx#:[id number] Zosyn 2.25 GM Premix 2.25 gm In 100 / 100 50 / 50 50 ml @ 100 mls/hr IV.SIG Q8H LIT Rx#:[id number] Oral 500 / 500 Other: # Voids 2 3 Date of Last Bowel Movement 06/12/18 06/12/18 06/13/18 # Bowel Movements 1 General: No acute distress Cardiovascular: S1/S2. Tachycardia Rotatory: Clear to auscultation bilaterally Gastro: Soft, nontender, nondistended, no guarding or rebound appreciated Extremity:; No lower extremity edema Urinary Catheter Management Indwelling Urethral Catheter: Cath placed during this visit: yes, but has since been removed by the nurse Reason for continuing: Decision to DC catheter Insertion date: 06/11/18 Insertion time: 10:00 Removal date: 06/12/18 Removal time: 13:55 Results Labs CBC & Chem 7: 06/13/18 06:40 06/13/18 06:40 Labs: Microbiology 06/11/18 09:47 Blood - Peripheral Aerobic Blood Culture - Preliminary No growth in 2 days 06/11/18 09:47 Blood - Peripheral Anaerobic Blood Culture - Preliminary No growth in 2 days 06/11/18 09:47 Blood - Peripheral Aerobic Blood Culture - Preliminary No growth in 2 days 06/11/18 09:47 Blood - Peripheral Anaerobic Blood Culture - Preliminary No growth in 2 days 06/11/18 10:00 Catheterized Urine Urine Culture - Preliminary Escherichia coli Viridans streptococcus grp Assessment and Plan (1) Acute renal failure: Code(s): N17.9 - Acute kidney failure, unspecified Status: Acute (2) Acute hyperkalemia: Code(s): E87.5 - Hyperkalemia Status: Acute Plan Patient is a 77-year-old female with long-standing smoking history presenting with new onset hyperkalemia and weakness requiring emergent hemodialysis Nephrology: Acute renal failure, hyperkalemia, hypophosphatemia, acute kidney injury Hyperkalemia is currently resolved Suspect the patient's hyperkalemia may have been induced from acute renal failure in the setting of recent Bactrim use as an outpatient. Nephrology consulted recommendations to be appreciated Cardiology: Essential hypertension Patient continues to be normotensive at this time we will continue to hold off on blood pressure medications and current setting Infectious disease: Diarrhea, E. coli UTI Send C. difficile PCR is patient with recent antibiotic use Continue Zosyn Urine culture positive for E. coli. Follow-up sensitivities reviewed Patient CARE: Smoking Approximately 15 minutes was spent counseling the patient is cessation techniques. Understands continuing to smoke could lead to stroke and . Benefits of stopping also presented to the patient. Patient verbalized desire to "give it a try" regarding smoking cessation and its benefits. Nicotine patch recommended. CODE STATUS: Full code DVT prophylaxis: Heparin Diet: Low potassium diet Progress Note: Quality VTE Deep Vein Thrombosis/Pulmonary Embolism Present on Admission: No _ (1) Acute renal failure Qualifiers: Acute renal failure type: unspecified Qualified Code(s): N17.9 - Acute kidney failure, unspecified
[2018-06-13] MEDS ORDERED: Sod Chloride 0.9% Inj 1,000 ML IV.CONT SCH (12:00)
[2018-06-13] MEDS: Azithromycin Inj 500 MG in Sodium Chlor 0.9% Inj 250 ML IV.SIG SCH (12:24)
[2018-06-13] MEDS: Heparin - SQ 10,000 UNITS/ML Vial SQ SCH ×2 (12:25→23:45)
[2018-06-13] MEDS ORDERED: dilTIAZem Inj 125 MG in Sodium Chlor 0.9% Inj 100 ML IV.CONT PRN (13:36)
[2018-06-13] MEDS ORDERED: Heparin Drip 25,000 UNIT/250 ML BAG IV.CONT PRN (13:36)
--- NOTE | 2018-06-13 16:55 | ECHRPT ---
Indication: ATRIAL FIB/FLUTTER CONCLUSIONS Normal left ventricular size. Wall thickness is normal. The left ventricular systolic function is low normal with an estimated ejection fraction in the rang e of 50- 55%. No segmental wall motion abnormalities. Increased atrial septal thickness. Mild mitral valve regurgitation. Mitral annular calcification is present. [id number] aortic valve regurgitation. There is mild tricuspid valve regurgitation. The estimated pulmonary arterial pressure is 52 mmHg. A left sided pleural effusion is present. BP: / HR: Rhythm: MEASUREMENTS (Male / Female) Normal Values Technical Quality: 2D ECHO LV Diastolic Diameter PLAX 4.0 cm 4.2 - 5.9 / 3.9 - 5.3 cm LV Systolic Diameter PLAX 3.1 cm IVS Diastolic Thickness 1.0 cm 0.6 - 1.0 / 0.6 - 0.9 cm LVPW Diastolic Thickness 0.8 cm 0.6 - 1.0 / 0.6 - 0.9 cm LV Relative Wall Thickness 0.4 RV Internal Dim ED PLAX 2.5 cm LVOT Diameter 1.6 cm Aortic Root Diameter 2.9 cm DOPPLER AV Peak Velocity 146.5 cm/s AV Peak Gradient 8.6 mmHg AV Mean Gradient 6.0 mmHg AV Velocity Time Integral 32.5 cm LVOT Peak Velocity 101.5 cm/s LVOT Peak Gradient 4.1 mmHg LVOT Velocity Time Integral 18.0 cm AV Area Cont Eq vti 1.1 cm AV Area Cont Eq pk 1.4 cm LV E' Septal Velocity 5.4 cm/s TR Peak Velocity 324.0 cm/s TR Peak Gradient 42.0 mmHg Right Atrial Pressure 10.0 mmHg Pulmonary Artery Systolic Pressu 52.0 mmHg Right Ventricular Systolic Press 52.0 mmHg PV Peak Velocity 110.0 cm/s PV Peak Gradient 4.8 mmHg FINDINGS LEFT VENTRICLE Normal left ventricular size. Wall thickness is normal. The left ventricular systolic function is low normal with an estimated ejection fraction in the rang e of 50- 55%. RIGHT VENTRICLE Normal right ventricular size and systolic function. LEFT ATRIUM The left atrial size is normal. RIGHT ATRIUM The right atrial size is normal. ATRIAL SEPTUM Increased atrial septal thickness. AORTA The aortic root and proximal ascending aorta are normal in size on limited imaging. MITRAL VALVE Mild mitral valve regurgitation. Mitral annular calcification is present. AORTIC VALVE [id number] aortic valve regurgitation. TRICUSPID VALVE There is mild tricuspid valve regurgitation. The estimated pulmonary arterial pressure is 52 mmHg. PULMONARY VALVE No pulmonary valve regurgitation or stenosis. VESSELS The inferior vena cava is normal in size. PERICARDIUM A left sided pleural effusion is present. Tammy Saleh MD, FACC (Electronically Signed) Final Date:13 June 2018 16:54
[2018-06-13 17:28] LABS: Activated Partial Thrombo Time 60.4 sec (23.4-31.7); INR 1.3 Ratio; Prothrombin Time 12.9 sec (9.8-11.6)
[2018-06-13] MEDS ORDERED: Potassium Bicarbonate 25 MEQ Effervescent Tablet PO ONE (18:11)
--- NOTE | 2018-06-13 18:11 | P.PNNP ---
Subjective Interval history: Patient transferred to [facility] due to atrial fibrillation Physical Exam Vital signs: Vital Signs 06/12/18 20:00 06/12/18 20:03 06/12/18 20:25 Temperature 97.3 F L Pulse Rate 97 H 100 H Respiratory Rate 20 18 18 Blood Pressure 179/75 H Pulse Oximetry 96 96 06/13/18 00:00 06/13/18 00:15 06/13/18 00:20 Temperature 98.1 F 98.0 F Pulse Rate 169 H 96 H 77 Respiratory Rate 19 21 Blood Pressure 129/62 134/69 Pulse Oximetry 94 L 91 L 06/13/18 02:00 06/13/18 03:00 06/13/18 04:00 Temperature 98.0 F 98.2 F Pulse Rate 79 99 H Respiratory Rate 18 20 19 Blood Pressure 156/69 H 180/66 H Pulse Oximetry 90 L 95 06/13/18 04:25 06/13/18 07:10 06/13/18 07:48 Temperature 98.4 F Pulse Rate 70 140 H 100 H Respiratory Rate 21 20 18 Blood Pressure 173/74 H 133/86 Pulse Oximetry 95 88 L 95 06/13/18 08:00 06/13/18 11:15 06/13/18 11:40 Temperature 98.3 F Pulse Rate 131 H 115 H 142 H Respiratory Rate 16 18 Blood Pressure 129/74 Pulse Oximetry 92 L 06/13/18 12:00 06/13/18 12:40 06/13/18 13:31 Temperature 98.2 F Pulse Rate 127 H 137 H 127 H Respiratory Rate 19 21 Blood Pressure 151/84 H Pulse Oximetry 94 L 06/13/18 13:33 06/13/18 14:00 06/13/18 15:00 Temperature Pulse Rate 125 H 123 H 127 H Respiratory Rate 20 14 17 Blood Pressure 173/75 H 154/83 H 167/70 H Pulse Oximetry 93 L 93 L 91 L 06/13/18 16:00 06/13/18 16:07 06/13/18 17:00 Temperature Pulse Rate 119 H 115 H 118 H Respiratory Rate 17 17 18 Blood Pressure 162/121 H 152/84 H Pulse Oximetry 91 L 91 L 90 L 06/13/18 17:19 06/13/18 18:00 Temperature Pulse Rate 120 H 110 H Respiratory Rate 21 18 Blood Pressure 141/78 H 176/76 H Pulse Oximetry 86 L 92 L Intake & Output 06/12/18 06/13/18 06/13/18 18:59 06:59 18:59 Intake Total 1850 / 1850 1050 / 1050 1200 / 1200 Balance 1850 / 1850 1050 / 1050 1200 / 1200 Weight 48.2 kg Intake: IV 1350 / 1350 1050 / 1050 1200 / 1200 NS Inj 1,000 ML @ 84 mls/hr IV. 1000 / 1000 1000 / 1000 900 / 900 CONT .[id number] LIT Rx#:[id number] Azithromycin Inj 500 MG In NS 250 / 250 250 / 250 Inj 250 ML @ 250 mls/hr IV.SIG Q24H LIT Rx#:[id number] Zosyn 2.25 GM Premix 2.25 gm In 100 / 100 50 / 50 50 / 50 50 ml @ 100 mls/hr IV.SIG Q8H LIT Rx#:[id number] Oral 500 / 500 Other: # Voids 2 3 2 Date of Last Bowel Movement 06/12/18 06/12/18 06/13/18 # Bowel Movements 1 1 Narrative: GENERAL: mal-nourished, well-developed frail patient. SKIN: Warm and dry. HEAD: Normocephalic. EYES: No scleral icterus. No injection or drainage. NECK: Supple, trachea midline. No JVD or lymphadenopathy. CARDIOVASCULAR: Irregularly irregular RVR RESPIRATORY: Breath sounds equal bilaterally. No accessory muscle use. GASTROINTESTINAL: Abdomen soft, non-tender, nondistended. EXTREMITIES: No edema NEUROLOGICAL: Awake, alert, - Urinary Catheter Management Indwelling Urethral Catheter Cath placed during this visit: yes, but has since been removed by the nurse Reason for continuing: Decision to DC catheter Insertion date: 06/11/18 Insertion time: 10:00 Removal date: 06/12/18 Removal time: 13:55 Assessment and Plan - Assessment (1) Acute renal failure Code(s): N17.9 - Acute kidney failure, unspecified Status: Acute Qualifiers: Acute renal failure type: unspecified Qualified Code(s): N17.9 - Acute kidney failure, unspecified Plan: Had dialysis 2 days ago creatinine declined to 1.7 potassium 3.2 replace potassium Discontinue Vas-Cath Nephrology to sign off (2) Acute hyperkalemia Code(s): E87.5 - Hyperkalemia Status: Acute
--- NOTE | 2018-06-13 20:29 | P.CONCA ---
History of Present Illness Service: Cardiology Consult date: 06/13/18 Requesting Physician: Fritz Orona Reason for Consult: ST changes, atrial fibrillation with RVR in setting of hyperkalemia Primary Care Provider: Pardeep Duke MD Chief Complaint: Altered mental status History of Present Illness: This is a 77-year-old female with a past medical history of COPD, depression, hypertension, hyperkalemia, leukocytosis, anxiety and tobacco use. She presented to the Emergency department on 06/11/18 with complaints of increase shortness of breath and abdominal pain. She states that she was being treated for a respiratory infection and has taken 2 courses of antibiotics. On arrival to the Emergency Department she was found to be in acute renal failure with a creatinine of 9.81 and a GFR of 4. She was also found to have hyperkalemia with a potassium level of 8.8. She denied any history of renal problems. She states that she did not have any CP, pressure or palpitations. She states that she has only been short of breath and had generalized abdominal pain. Echo on 06/13/18 shows mildly reduced left ventricular function with an EF of 50-55%, mild MR, mild-moderate AR, mild TR and a pulmonary artery pressure of 52. EKG today showed atrial fibrillation with RVR and troponin level this morning was 13 and is trending down. She denies any CP, pressure, palpitations, dizziness or edema. She does complain of shortness of breath. Review of Systems All other systems reviewed negative except as stated in HPI PMFSH - History History Provided By: Patient - Medical History Medical History: Medical History (Last Reviewed 06/12/18 @ 08:06 by Kaushal Conner) Acute kidney injury Allergic rhinitis Anxiety COPD (chronic obstructive pulmonary disease) Depression HTN (hypertension) Hyperkalemia Leukocytosis Normocytic anemia Tobacco abuse - Surgical History Surgical History: Surgical History (Last Reviewed 06/12/18 @ 08:06 by Kaushal Conner) Surgical history unknown - Family History Family History: Family History (Last Updated 06/11/18 @ 12:48 by Jordan Aguiar MD) Other Paternal family history of emphysema - Tobacco History Second Hand Smoke Exposure: Yes Tobacco Use In Past 30 Days: Yes Smoking Status: Current every day smoker Tobacco Type: Cigarettes - Alcohol History How Often Do You Have a Drink Containing Alcohol: Unable to Obtain - Substance Use History Substance History: Unable to Obtain - Travel History Recent Travel in the [place] Within the Last 8 Weeks: No Recent Travel Out of the Country Within the Last 8 Weeks: No - Immunization History Tetanus Immunization: Unsure Hx Influenza Vaccine This Season: No Medications and Allergies Allergies Allergy/AdvReac Type Severity Reaction Status Date / Time No Known Allergies Allergy Verified 06/11/18 09:25 Home Medications Medication Instructions Recorded Confirmed Type amlodipine 10 mg PO DAILY 06/11/18 06/11/18 History buspirone 10 mg PO BID 06/11/18 06/11/18 History cetirizine 10 mg PO DAILY 06/11/18 06/11/18 History lisinopril 40 mg PO DAILY 06/11/18 06/11/18 History metoprolol succinate 50 mg PO BID 06/11/18 06/11/18 History sertraline 50 mg PO DAILY 06/11/18 06/11/18 History sulfamethoxazole-trimethoprim 1 tab PO Q12H 06/11/18 06/11/18 History Active Medications: Active Medications Acetaminophen (Tylenol) 650 mg PO UNSCH PRN PRN Reason: SEE LABEL COMMENTS Acetaminophen (Tylenol) 650 mg PO Q6H PRN PRN Reason: PAIN 1-10 AND/OR FEVER >101F Last Admin: 06/13/18 01:42 Dose: 650 mg Al Hydroxide/Mg Hydroxide (Milk Of Carmelita Parada) 30 ml PO Q12H PRN PRN Reason: Mild Constipation Albuterol (Albuterol Neb (Prn)) 2.5 mg NEB Q2HR NEB PRN PRN Reason: SHORTNESS OF BREATH/WHEEZING Albuterol (Duoneb Neb (Nicole)) 1 ampul NEB Q4HR NEB [facility] Last Admin: 06/13/18 17:45 Dose: Not Given Amlodipine Besylate (Norvasc) 5 mg PO DAILY [facility] Last Admin: 06/13/18 08:15 Dose: 5 mg Bisacodyl (Dulcolax Supp) 10 mg RECTAL DAILY PRN PRN Reason: SEVERE CONSITIPATION Buspirone HCl (Buspar) 10 mg PO BID [facility] Last Admin: 06/13/18 08:16 Dose: 10 mg Cetirizine HCl (Zyrtec) 10 mg PO DAILY [facility] Last Admin: 06/13/18 08:15 Dose: 10 mg Chlorhexidine Gluconate (Chlorhexidine 2% Cloth) 3 pack TOPICAL DAILY@0400 [facility] Stop: 06/17/18 03:59 Last Admin: 06/13/18 04:00 Dose: Not Given Chlorhexidine Gluconate (Chlorhexidine 2% Cloth) 3 pack TOPICAL DAILY@0400 PRN PRN Reason: Extra cloth needed Stop: 06/17/18 03:59 Clonidine HCl (Catapres) 0.1 mg PO UNSCH PRN PRN Reason: SEE LABEL COMMENTS Dextrose (D50w Vial) 50 ml IV.PUSH UNSCH PRN PRN Reason: PER HYPOGLYCEMIA PROTOCOL Diphenhydramine HCl (Benadryl) 25 mg PO UNSCH PRN PRN Reason: SEE LABEL COMMENTS Gelatin (Gelfoam 12 Mm/7 Mm Topical) 1 foam TOPICAL PRN PRN PRN Reason: help stop bleeding from site Gentamicin Sulfate (Gentamicin Inj) 20 mg OTHER WITH DIALYSIS PRN PRN Reason: Dwell Gentamycin Lock Last Admin: 06/11/18 14:43 Dose: 20 mg Glucagon (Glucagon Inj) 1 mg OTHER PRN PRN PRN Reason: for Hypoglycemia Protocol Heparin Sodium (Porcine) (Heparin Inj) 8,000 units OTHER WITH DIALYSIS PRN PRN Reason: for machine prime Heparin Sodium (Porcine) (Heparin Inj) 1,000 units OTHER WITH DIALYSIS PRN PRN Reason: Dwell Heparin to Fill Catheter Last Admin: 06/11/18 14:43 Dose: 1,000 units Heparin Sodium (Porcine) (Heparin Inj) 5,000 units SQ Q12H [facility] Last Admin: 06/13/18 12:25 Dose: 5,000 units Heparin Sodium (Porcine) (Heparin Inj) 0 units IV.FLUSH WITH DIALYSIS PRN PRN Reason: Flush each lumen Albumin Human (Flexbumin 25% Inj) 100 mls @ 60 mls/hr IV.SIG WITH DIALYSIS PRN PRN Reason: hypotension / volume replace Last Infusion: 06/11/18 15:39 Dose: Infused Sodium Chloride (Ns Inj) 1,000 mls @ 0 mls/hr OTHER .Q0M PRN PRN Reason: for prime and rinse back Sodium Chloride (Ns Inj) 1,000 mls @ 0 mls/hr IV.CONT .Q0M PRN PRN Reason: hypotension / volume replace Sodium Chloride (Ns Inj) 1,000 mls @ 84 mls/hr IV.CONT .[id number] [facility] Last Admin: 06/13/18 14:38 Dose: 84 mls/hr Azithromycin 500 mg/ Sodium (Chloride) 250 mls @ 250 mls/hr IV.SIG Q24H [facility] Last Infusion: 06/13/18 13:39 Dose: Infused Piperacillin/Tazobactam/Dextrose (Zosyn 2.25 Gm Premix) 2.25 gm in 50 mls @ 100 mls/hr IV.SIG Q8H [facility] Last Infusion: 06/13/18 19:00 Dose: Infused Sodium Chloride (Ns Inj) 1,000 mls @ 75 mls/hr IV.CONT .[id number] [facility] Stop: 06/14/18 01:19 Last Admin: 06/13/18 12:25 Dose: 75 mls/hr Diltiazem HCl 125 mg/ Sodium (Chloride) 125 mls @ 5 mls/hr IV.CONT TITRATE PRN ; Protocol PRN Reason: Per Protocol Last Admin: 06/13/18 14:38 Dose: 5 mg/hr, 5 mls/hr Heparin Sodium/Dextrose (Heparin/D5w 25,000 U/250 Ml) 25,000 unit in 250 mls @ 6 mls/hr IV.CONT TITRATE PRN; Protocol PRN Reason: Per Protocol Last Admin: 06/13/18 17:40 Dose: 600 unit/hr, 6 mls/hr Insulin Aspart (Novolog Insulin Correctional Sugar Inj) 0 unit SQ Q6HR [facility]; Protocol Last Admin: 06/13/18 17:58 Dose: Not Given Lactulose (Lactulose Liq) 30 ml PO DAILY PRN PRN Reason: SEVERE CONSITIPATION Mannitol (Mannitol Inj) 12.5 gm IV.PUSH UNSCH PRN PRN Reason: hypotension / volume replace Metoprolol Tartrate (Lopressor) 50 mg PO BID [facility] Nicotine (Habitrol 14 Mg Patch.24 Hr) 1 patch T-DERMAL DAILY [facility] Last Admin: 06/13/18 08:16 Dose: 1 patch Nitroglycerin (Nitrostat Sl) 0.4 mg SL Q5M PRN PRN Reason: CHEST PAIN Ondansetron HCl (Zofran Inj) 4 mg IV.PUSH UNSCH PRN PRN Reason: NAUSEA OR VOMITING Ondansetron HCl (Zofran Inj) 4 mg IV.PUSH Q6H PRN PRN Reason: NAUSEA OR VOMITING Pantoprazole Sodium (Protonix Inj) 40 mg IV.PUSH DAILY [facility] Last Admin: 06/13/18 08:15 Dose: 40 mg Senna/Docusate Sodium (Meagan-Colace) 1 tab PO BID [facility] Last Admin: 06/13/18 08:15 Dose: 1 tab Sennosides (Senokot) 17.2 mg PO Q12H PRN PRN Reason: Moderate Constipation Sertraline HCl (Zoloft) 50 mg PO DAILY [facility] Last Admin: 06/13/18 08:15 Dose: 50 mg Sodium Chloride (Ns Flush) 5 ml IV.FLUSH PRN PRN PRN Reason: flush each lumen during HD Sodium Chloride (Ns Flush) 2 ml IV.FLUSH PRN PRN PRN Reason: FLUSH AFTER USING IV ACCESS Sodium Chloride (Ns Flush) 2 ml IV.FLUSH BID [facility] Exam Vital signs: Vital Signs 06/12/18 20:03 06/12/18 20:25 06/13/18 00:00 Temperature 97.3 F L 98.1 F Pulse Rate 97 H 100 H 169 H Respiratory Rate 18 18 19 Blood Pressure 179/75 H 129/62 Pulse Oximetry 96 96 94 L 06/13/18 00:15 06/13/18 00:20 06/13/18 02:00 Temperature 98.0 F 98.0 F Pulse Rate 96 H 77 79 Respiratory Rate 21 18 Blood Pressure 134/69 156/69 H Pulse Oximetry 91 L 90 L 06/13/18 03:00 06/13/18 04:00 06/13/18 04:25 Temperature 98.2 F 98.4 F Pulse Rate 99 H 70 Respiratory Rate 20 19 21 Blood Pressure 180/66 H 173/74 H Pulse Oximetry 95 95 06/13/18 07:10 06/13/18 07:48 06/13/18 08:00 Temperature Pulse Rate 140 H 100 H 131 H Respiratory Rate 20 18 Blood Pressure 133/86 Pulse Oximetry 88 L 95 06/13/18 11:15 06/13/18 11:40 06/13/18 12:00 Temperature 98.3 F Pulse Rate 115 H 142 H 127 H Respiratory Rate 16 18 Blood Pressure 129/74 Pulse Oximetry 92 L 06/13/18 12:40 06/13/18 13:31 06/13/18 13:33 Temperature 98.2 F Pulse Rate 137 H 127 H 125 H Respiratory Rate 19 21 20 Blood Pressure 151/84 H 173/75 H Pulse Oximetry 94 L 93 L 06/13/18 14:00 06/13/18 15:00 06/13/18 16:00 Temperature Pulse Rate 123 H 127 H 119 H Respiratory Rate 14 17 17 Blood Pressure 154/83 H 167/70 H 162/121 H Pulse Oximetry 93 L 91 L 91 L 06/13/18 16:07 06/13/18 17:00 06/13/18 17:19 Temperature Pulse Rate 115 H 118 H 120 H Respiratory Rate 17 18 21 Blood Pressure 152/84 H 141/78 H Pulse Oximetry 91 L 90 L 86 L 06/13/18 18:00 Temperature Pulse Rate 110 H Respiratory Rate 18 Blood Pressure 176/76 H Pulse Oximetry 92 L Intake & Output 06/13/18 06/13/18 06/14/18 06:59 18:59 06:59 Intake Total 1050 / 1050 1200 / 1200 50 / 50 Balance 1050 / 1050 1200 / 1200 50 / 50 Weight 48.2 kg Intake: IV 1050 / 1050 1200 / 1200 50 / 50 NS Inj 1,000 ML @ 84 mls/hr IV. 1000 / 1000 900 / 900 CONT .[id number] NICOLE Rx#:[id number] Azithromycin Inj 500 MG In NS 250 / 250 Inj 250 ML @ 250 mls/hr IV.SIG Q24H NICOLE Rx#:[id number] Zosyn 2.25 GM Premix 2.25 gm In 50 / 50 50 / 50 50 / 50 50 ml @ 100 mls/hr IV.SIG Q8H NICOLE Rx#:[id number] Other: # Voids 3 2 Date of Last Bowel Movement 06/12/18 06/13/18 # Bowel Movements 1 - Constitutional no acute distress - Routine HEENT Exam Head: Present: normocephalic Eye: Present: PERRL ENT: Present: mucous membranes moist - Routine Neck Exam Present: supple - Routine Respiratory Exam Present: diminished air movement - Routine Cardiovascular Exam Present: S1, S2, tachycardia, irregular rhythm Comments: atrial fibrillation with RVR - Routine Abdominal Exam Present: normoactive bowel sounds - Routine Extremities Exam Present: full ROM, pulses intact, normal capillary refill - Routine Skin Exam Present: intact - Routine Neurological Exam Present: oriented X3 Results 06/13/18 06:40 06/13/18 06:40 Cardiac Enzymes 06/12/18 06/13/18 06/13/18 Range/Units 05:59 06:40 06:40 AST 106 H 87 H (15-37) U/L Troponin I 13.00 H* D Cancelled (0.02-0.05) ng/mL 06/13/18 Range/Units 16:33 AST (15-37) U/L Troponin I 7.58 H* D (0.02-0.05) ng/mL Coagulation 06/13/18 Range/Units 16:33 PT 12.9 H (9.8-11.6) sec APTT 60.4 H (23.4-31.7) sec CBC 06/12/18 06/13/18 Range/Units 05:59 06:40 WBC 9.2 10.4 (4.0-11.0) th/mm3 RBC 2.88 L 3.33 L (4.00-5.30) mil/mm3 Hgb 8.9 L D 10.4 L (11.6-15.3) gm/dL Hct 25.8 L 29.4 L (35.0-46.0) % Plt Count 179 171 (150-450) th/mm3 Neut # (Auto) 7.6 8.0 H (1.8-7.7) th/mm3 Lymph # (Auto) 0.8 L 1.4 (1.0-4.8) th/mm3 Douglas # (Auto) 0.8 0.9 (0.0-0.9) th/mm3 Eos # (Auto) 0.0 0.1 (0.0-0.4) th/mm3 Baso # (Auto) 0.0 0.0 (0.0-0.2) th/mm3 Comprehensive Metabolic Panel 06/11/18 06/12/18 06/13/18 Range/Units 19:25 05:59 06:40 Sodium 148 H 144 (136-145) meq/L Potassium 3.8 3.2 L (3.5-5.1) meq/L Chloride 112 H 111 H (98-107) meq/L Carbon Dioxide 22.0 23.5 (21.0-32.0) meq/L BUN 52 H 35 H (7-18) mg/dL Creatinine 2.89 H 1.71 H (0.50-1.00) mg/dL Calcium 7.2 L* 7.1 L* (8.5-10.1) mg/dL AST 106 H 87 H (15-37) U/L ALT 58 H 45 (10-53) U/L Alkaline Phosphatase 44 L 50 (45-117) U/L Total Protein 5.1 L D 5.2 L (6.4-8.2) g/dL Albumin 3.2 L 3.1 L 2.8 L (3.4-5.0) g/dL Intake and Output 06/13/18 06/13/18 06/13/18 06:59 14:59 22:59 Intake Total 1050 / 1050 1200 / 1200 50 / 50 Balance 1050 / 1050 1200 / 1200 50 / 50 Intake: IV 1050 / 1050 1200 / 1200 50 / 50 NS Inj 1,000 ML @ 84 mls/hr IV. 1000 / 1000 900 / 900 CONT .[id number] NICOLE Rx#:[id number] Azithromycin Inj 500 MG In NS 250 / 250 Inj 250 ML @ 250 mls/hr IV.SIG Q24H NICOLE Rx#:[id number] Zosyn 2.25 GM Premix 2.25 gm In 50 / 50 50 / 50 50 / 50 50 ml @ 100 mls/hr IV.SIG Q8H NICOLE Rx#:[id number] Other: # Voids 3 2 Date of Last Bowel Movement 06/13/18 06/13/18 # Bowel Movements 1 Weight 48.2 kg Assessment and Plan - Assessment (1) Atrial fibrillation with RVR Code(s): I48.91 - Unspecified atrial fibrillation Status: Acute (2) Elevated troponin Code(s): R74.8 - Abnormal levels of other serum enzymes Status: Acute (3) Acute renal failure Code(s): N17.9 - Acute kidney failure, unspecified Status: Acute (4) Acute hyperkalemia Code(s): E87.5 - Hyperkalemia Status: Acute (5) COPD (chronic obstructive pulmonary disease) Code(s): J44.9 - Chronic obstructive pulmonary disease, unspecified Status: Chronic (6) Tobacco abuse Code(s): Z72.0 - Tobacco use Status: Chronic - Plan She is currently in atrial fibrillation with RVR, continue Cardizem gtt for rate control. Troponin levels are elevated but trending down, continue Heparin gtt for anticoagulation. Continue metoprolol for blood pressure and rate control. Nephrology evaluation and treatment in progress due to acute renal failure. Continue to monitor the patient on telemetry. We will continue to monitor the patient during her hospitalization. The patient was seen and evaluated by Dr. Saleh who participated in care, management and decision making. - Attending Attestation Patient seen and examined. I reviewed and agree with the evaluation and plan as presented. Continue IV heparin, metoprolol and ASA. Risk factor modification, statin. Continue monitoring in the ICU. (3) Acute renal failure Qualifiers: Acute renal failure type: unspecified Qualified Code(s): N17.9 - Acute kidney failure, unspecified (5) COPD (chronic obstructive pulmonary disease) Qualifiers: COPD type: unspecified COPD Qualified Code(s): J44.9 - Chronic obstructive pulmonary disease, unspecified
[2018-06-13 23:20] LABS: ABG Base Excess -4.9 mmol/L (-2-2); ABG PCO2 27 mmHg (38-42); ABG PO2 55 mmHg (61-120)
[2018-06-14] MEDS: Sod Chloride 0.9% Inj 1,000 ML IV.CONT SCH ×2 (00:17→01:30)
[2018-06-14] MEDS: Insulin NovoLOG Aspart Correctional Sugar Inj SQ SCH ×4 (00:18→18:13)
--- NOTE | 2018-06-14 00:51 | XR ---
EXAM DATE: 06/14/2018 12:31 AM EST AGE/SEX: 77 years / Female INDICATIONS: Shortness of breath. CLINICAL DATA: This is the patient's subsequent encounter. Patient reports that signs and symptoms h ave been present for 3 days and indicates a pain score of Nonresponsive. MEDICAL/SURGICAL HISTORY: . Acute kidney injury. Allergic rhinitis. Anxiety. COPD. Depression. HTN, Hyperkalemia. Leukocytosis. Normocytic anemia. None. COMPARISON: C, CHEST 1V SINGLE AP, 06/11/2018. . FINDINGS: A single AP view of the chest demonstrates interval development of by lateral pleural effusions as we ll as bibasilar pulmonary infiltrates. The heart is mildly enlarged. Aorta is calcified. CONCLUSION: Radiographic pattern consistent with intra-alveolar pulmonary edema and small bilateral pleural effus ions. Electronically signed by: Earl Merida MD Board Certified Radiologist 06/14/2018 12:49 AM EST
[2018-06-14] MEDS: Piperacil/Tazo 2.25 GM Premix 2.25 GM/50 ML PIGGYBACK IV.SIG SCH (01:24)
[2018-06-14] MEDS ORDERED: Metoprolol Inj 5 MG/5 ML Vial IV.PUSH PRN (01:57)
[2018-06-14 03:56] LABS: Hematocrit 31.3 % (35.0-46.0); Hemoglobin 10.4 gm/dL (11.6-15.3); Mean Corpuscular HGB Conc 33.3 % (32.0-36.0); Mean Corpuscular Volume 90.1 fL (80.0-100.0); Platelet Count 175 th/mm3 (150-450); Red Blood Count 3.47 mil/mm3 (4.00-5.30); Red Cell Distribution Width 14.9 % (11.6-17.2); White Blood Count 15.2 th/mm3 (4.0-11.0)
[2018-06-14] MEDS: Chlorhexidine Gluconate 2% 1 Pack (2 Cloths) TOPICAL SCH (04:18)
[2018-06-14 05:15] LABS: ABG PCO2 31 mmHg (38-42); ABG PO2 66 mmHg (61-120)
[2018-06-14] MEDS: Pantoprazole Inj 40 MG Vial IV.PUSH SCH (08:01)
[2018-06-14] MEDS: amLODIPine 5 MG Tablet PO SCH (08:02)
[2018-06-14] MEDS: Metoprolol Tartrate 25 MG Tablet PO SCH ×2 (08:02→18:15)
[2018-06-14] MEDS: Sertraline 50 MG Tablet PO SCH (09:00)
--- NOTE | 2018-06-14 09:08 | P.PNIM ---
Subjective Interval history: Patient seen and examined this morning at the bedside + occult positive while on heparin currently has no SOB or palp or dizziness HR < 100 but on cardizem 15 and metoprolol 50mg BID no hematuria Nephrology completed HD sessions patient got lasix 40mg overnight for worsening SOB in setting of large amounts of fluid thus far. continue to supplement K and given another lasix 40mg Physical Exam Vital signs: Vital Signs 06/13/18 11:15 06/13/18 11:40 06/13/18 12:00 Temperature 98.3 F Pulse Rate 115 H 142 H 127 H Respiratory Rate 16 18 Blood Pressure 129/74 Pulse Oximetry 92 L 06/13/18 12:40 06/13/18 13:31 06/13/18 13:33 Temperature 98.2 F Pulse Rate 137 H 127 H 125 H Respiratory Rate 19 21 20 Blood Pressure 151/84 H 173/75 H Pulse Oximetry 94 L 93 L 06/13/18 14:00 06/13/18 15:00 06/13/18 16:00 Temperature Pulse Rate 123 H 127 H 119 H Respiratory Rate 14 17 17 Blood Pressure 154/83 H 167/70 H 162/121 H Pulse Oximetry 93 L 91 L 91 L 06/13/18 16:07 06/13/18 17:00 06/13/18 17:19 Temperature Pulse Rate 115 H 118 H 120 H Respiratory Rate 17 18 21 Blood Pressure 152/84 H 141/78 H Pulse Oximetry 91 L 90 L 86 L 06/13/18 18:00 06/13/18 19:00 06/13/18 20:00 Temperature 98 F Pulse Rate 110 H 118 H 116 H Respiratory Rate 18 21 22 Blood Pressure 176/76 H 154/65 H 136/89 Pulse Oximetry 92 L 92 L 91 L 06/13/18 20:16 06/13/18 21:00 06/13/18 22:00 Temperature Pulse Rate 113 H 113 H 117 H Respiratory Rate 16 17 20 Blood Pressure 136/69 144/90 H Pulse Oximetry 94 L 90 L 92 L 06/13/18 23:00 06/13/18 23:01 06/13/18 23:30 Temperature Pulse Rate 128 H 124 H Respiratory Rate 23 24 Blood Pressure 170/91 H Pulse Oximetry 89 L 96 06/14/18 00:00 06/14/18 00:01 06/14/18 01:00 Temperature 98.3 F Pulse Rate 112 H 120 H 122 H Respiratory Rate 23 24 24 Blood Pressure 180/83 H 161/99 H 164/76 H Pulse Oximetry 98 98 95 06/14/18 01:50 06/14/18 02:00 06/14/18 03:00 Temperature Pulse Rate 100 H 105 H 104 H Respiratory Rate 20 20 19 Blood Pressure 175/91 H 214/94 H Pulse Oximetry 94 L 94 L 06/14/18 03:01 06/14/18 03:14 06/14/18 03:26 Temperature Pulse Rate 104 H 137 H 136 H Respiratory Rate 24 23 21 Blood Pressure 224/88 H 212/84 H 182/68 H Pulse Oximetry 94 L 94 L 93 L 06/14/18 03:35 06/14/18 03:45 06/14/18 04:00 Temperature Pulse Rate 128 H 107 H 142 H Respiratory Rate 21 21 26 H Blood Pressure 199/104 H 204/114 H Pulse Oximetry 91 L 94 L 93 L 06/14/18 04:01 06/14/18 04:03 06/14/18 04:05 Temperature 97.8 F Pulse Rate 136 H 120 H 137 H Respiratory Rate 25 H 26 H 24 Blood Pressure 137/84 166/112 H 195/88 H Pulse Oximetry 93 L 92 L 91 L 06/14/18 05:00 06/14/18 05:01 06/14/18 05:52 Temperature Pulse Rate 128 H 121 H 107 H Respiratory Rate 24 23 21 Blood Pressure 174/84 H 164/76 H Pulse Oximetry 92 L 92 L 96 06/14/18 06:00 06/14/18 06:01 06/14/18 07:00 Temperature Pulse Rate 106 H 105 H 99 H Respiratory Rate 22 21 23 Blood Pressure 160/70 H Pulse Oximetry 97 97 95 06/14/18 07:01 06/14/18 07:03 06/14/18 07:04 Temperature Pulse Rate 101 H 104 H 100 H Respiratory Rate 23 22 23 Blood Pressure 185/111 H 182/78 H 177/70 H Pulse Oximetry 95 97 97 06/14/18 08:00 06/14/18 08:01 06/14/18 08:18 Temperature 97.8 F Pulse Rate 91 H 94 H 93 H Respiratory Rate 21 21 25 H Blood Pressure 164/80 H Pulse Oximetry 97 98 89 L Intake & Output 06/13/18 06/14/18 06/14/18 18:59 06:59 18:59 Intake Total 1200 / 1200 1320 / 1320 Output Total 90 / 90 Balance 1200 / 1200 1230 / 1230 Weight 42.5 kg Intake: IV 1200 / 1200 1200 / 1200 NS Inj 1,000 ML @ 75 mls/hr IV. 900 / 900 1100 / 1100 CONT .[id number] LIT Rx#:[id number] Azithromycin Inj 500 MG In NS 250 / 250 Inj 250 ML @ 250 mls/hr IV.SIG Q24H LIT Rx#:[id number] Zosyn 2.25 GM Premix 2.25 gm In 50 / 50 100 / 100 50 ml @ 100 mls/hr IV.SIG Q8H LIT Rx#:[id number] Oral 120 / 120 Output: Urine Amount (Catheter) Female External Other: # Voids 2 4 # Incontinent Voids 4 Date of Last Bowel Movement 06/13/18 06/14/18 # Bowel Movements 1 3 # Incontinent Bowel Movements 9 gen: NAD heent: eomi CVS: irregularly irregular Resp: CTA bilaterally GI: soft, non tender, non distended, no guarding ext: no edema Urinary Catheter Management Indwelling Urethral Catheter: Cath placed during this visit: yes, but has since been removed by the nurse Reason for continuing: Decision to DC catheter Insertion date: 06/11/18 Insertion time: 10:00 Removal date: 06/12/18 Removal time: 13:55 Female External: Cath placed during this visit: no Results Labs CBC & Chem 7: 06/14/18 03:47 06/13/18 06:40 Labs: Microbiology 06/13/18 19:26 Stool Stool Occult Blood (ROSAURA) - Final Hemoccult positive 06/11/18 09:47 Blood - Peripheral Aerobic Blood Culture - Preliminary No growth in 2 days 06/11/18 09:47 Blood - Peripheral Anaerobic Blood Culture - Preliminary No growth in 2 days 06/11/18 09:47 Blood - Peripheral Aerobic Blood Culture - Preliminary No growth in 2 days 06/11/18 09:47 Blood - Peripheral Anaerobic Blood Culture - Preliminary No growth in 2 days 06/11/18 10:00 Catheterized Urine Urine Culture - Preliminary Escherichia coli Viridans streptococcus grp Imaging Imaging: Impressions Chest X-Ray 06/14/18 00:00 CONCLUSION: Radiographic pattern consistent with intra-alveolar pulmonary edema and small bilateral pleural effusions. Assessment and Plan (1) Atrial fibrillation with RVR: Code(s): I48.91 - Unspecified atrial fibrillation Status: Acute (2) Elevated troponin: Code(s): R74.8 - Abnormal levels of other serum enzymes Status: Acute (3) Acute renal failure: Code(s): N17.9 - Acute kidney failure, unspecified Status: Acute (4) Acute hyperkalemia: Code(s): E87.5 - Hyperkalemia Status: Acute (5) COPD (chronic obstructive pulmonary disease): Code(s): J44.9 - Chronic obstructive pulmonary disease, unspecified Status: Chronic (6) Tobacco abuse: Code(s): Z72.0 - Tobacco use Status: Chronic Plan Patient is a 77-year-old female with long-standing smoking history presenting with new onset hyperkalemia and weakness requiring emergent hemodialysis Nephrology: Acute renal failure, hyperkalemia (resolved), hypophosphatemia, acute kidney injury Suspect the patient's hyperkalemia may have been induced from acute renal failure in the setting of recent Bactrim use as an outpatient. Nephrology consulted recommendations to be appreciated. Currently signed off and stopped further HD sessions currently Cardiology: Essential hypertension, New Atrial fibrillation - Cardiology consulted and recommendations appreciated - discontinue heparin ggt given occult positive stools - extensive discussion re: AC at bedside given a fib w/ blood occult positive. At this time will hold off blood thinner and treat conservatively medically with BB and rate controlling agents - patient got lasix 40mg overnight for worsening SOB in setting of large amounts of fluid thus far. continue to supplement K and given another lasix 40mg at 6:00pm tonight Patient continues to be normotensive at this time we will continue to hold off on blood pressure medications and current setting - metoprolol 50mg BID Infectious disease: Diarrhea, E. coli UTI Send C. difficile PCR is patient with recent antibiotic use Urine culture positive for E. coli. Cipro PO Patient CARE: Smoking Approximately 15 minutes was spent counseling the patient is cessation techniques previously. Understands continuing to smoke could lead to stroke and . Benefits of stopping also presented to the patient. Patient verbalized desire to "give it a try" regarding smoking cessation and its benefits. Nicotine patch recommended. CODE STATUS: Full code DVT prophylaxis: SCD Diet: Low potassium diet Progress Note: Quality VTE Deep Vein Thrombosis/Pulmonary Embolism Present on Admission: No _ (1) Acute renal failure Qualifiers: Acute renal failure type: unspecified Qualified Code(s): N17.9 - Acute kidney failure, unspecified (2) COPD (chronic obstructive pulmonary disease) Qualifiers: COPD type: unspecified COPD Chronic bronchitis type: Emphysema type: Qualified Code(s): J44.9 - Chronic obstructive pulmonary disease, unspecified
[2018-06-14] MEDS: Senna/Docusate Sodium 8.6/50 MG Tablet PO SCH ×2 (10:45→21:03)
[2018-06-14 11:05] LABS: Calcium 8.3 mg/dL (8.5-10.1); Carbon Dioxide 21.4 meq/L (21.0-32.0); Potassium 3.6 meq/L (3.5-5.1)
[2018-06-14] MEDS: Ciprofloxacin 500 MG Tablet PO SCH (12:30)
[2018-06-14] MEDS: Heparin - SQ 10,000 UNITS/ML Vial SQ SCH ×2 (12:49→23:15)
--- NOTE | 2018-06-14 17:21 | P.PNCA ---
Subjective Interval history: Patient denies any CP, pressure, palpitation or edema. She does complain of SOB with any activity. Medications and Allergies Allergies Allergy/AdvReac Type Severity Reaction Status Date / Time No Known Allergies Allergy Verified 06/11/18 09:25 Home Medications Medication Instructions Recorded Confirmed Type amlodipine 10 mg PO DAILY 06/11/18 06/11/18 History buspirone 10 mg PO BID 06/11/18 06/11/18 History cetirizine 10 mg PO DAILY 06/11/18 06/11/18 History lisinopril 40 mg PO DAILY 06/11/18 06/11/18 History metoprolol succinate 50 mg PO BID 06/11/18 06/11/18 History sertraline 50 mg PO DAILY 06/11/18 06/11/18 History sulfamethoxazole-trimethoprim 1 tab PO Q12H 06/11/18 06/11/18 History Active Medications: Active Medications Acetaminophen (Tylenol) 650 mg PO UNSCH PRN PRN Reason: SEE LABEL COMMENTS Acetaminophen (Tylenol) 650 mg PO Q6H PRN PRN Reason: PAIN 1-10 AND/OR FEVER >101F Last Admin: 06/13/18 01:42 Dose: 650 mg Al Hydroxide/Mg Hydroxide (Milk Of Carmelita Parada) 30 ml PO Q12H PRN PRN Reason: Mild Constipation Albuterol (Albuterol Neb (Prn)) 2.5 mg NEB Q2HR NEB PRN PRN Reason: SHORTNESS OF BREATH/WHEEZING Last Admin: 06/14/18 01:50 Dose: 2.5 mg Albuterol (Duoneb Neb (Nicole)) 1 ampul NEB Q4HR NEB [facility] Last Admin: 06/14/18 15:52 Dose: 1 ampul Amlodipine Besylate (Norvasc) 5 mg PO DAILY [facility] Last Admin: 06/14/18 08:02 Dose: 5 mg Bisacodyl (Dulcolax Supp) 10 mg RECTAL DAILY PRN PRN Reason: SEVERE CONSITIPATION Buspirone HCl (Buspar) 10 mg PO BID [facility] Last Admin: 06/14/18 08:02 Dose: 10 mg Cetirizine HCl (Zyrtec) 10 mg PO DAILY [facility] Last Admin: 06/14/18 08:02 Dose: 10 mg Chlorhexidine Gluconate (Chlorhexidine 2% Cloth) 3 pack TOPICAL DAILY@0400 [facility] Stop: 06/17/18 03:59 Last Admin: 06/14/18 04:18 Dose: 3 pack Chlorhexidine Gluconate (Chlorhexidine 2% Cloth) 3 pack TOPICAL DAILY@0400 PRN PRN Reason: Extra cloth needed Stop: 06/17/18 03:59 Ciprofloxacin HCl (Cipro) 500 mg PO Q18H [facility] Last Admin: 06/14/18 12:30 Dose: 500 mg Dextrose (D50w Vial) 50 ml IV.PUSH UNSCH PRN PRN Reason: PER HYPOGLYCEMIA PROTOCOL Diphenhydramine HCl (Benadryl) 25 mg PO UNSCH PRN PRN Reason: SEE LABEL COMMENTS Gelatin (Gelfoam 12 Mm/7 Mm Topical) 1 foam TOPICAL PRN PRN PRN Reason: help stop bleeding from site Gentamicin Sulfate (Gentamicin Inj) 20 mg OTHER WITH DIALYSIS PRN PRN Reason: Dwell Gentamycin Lock Last Admin: 06/11/18 14:43 Dose: 20 mg Glucagon (Glucagon Inj) 1 mg OTHER PRN PRN PRN Reason: for Hypoglycemia Protocol Heparin Sodium (Porcine) (Heparin Inj) 8,000 units OTHER WITH DIALYSIS PRN PRN Reason: for machine prime Heparin Sodium (Porcine) (Heparin Inj) 1,000 units OTHER WITH DIALYSIS PRN PRN Reason: Dwell Heparin to Fill Catheter Last Admin: 06/11/18 14:43 Dose: 1,000 units Heparin Sodium (Porcine) (Heparin Inj) 5,000 units SQ Q12H [facility] Last Admin: 06/14/18 12:49 Dose: 5,000 units Heparin Sodium (Porcine) (Heparin Inj) 0 units IV.FLUSH WITH DIALYSIS PRN PRN Reason: Flush each lumen Albumin Human (Flexbumin 25% Inj) 100 mls @ 60 mls/hr IV.SIG WITH DIALYSIS PRN PRN Reason: hypotension / volume replace Last Infusion: 06/11/18 15:39 Dose: Infused Sodium Chloride (Ns Inj) 1,000 mls @ 0 mls/hr OTHER .Q0M PRN PRN Reason: for prime and rinse back Sodium Chloride (Ns Inj) 1,000 mls @ 0 mls/hr IV.CONT .Q0M PRN PRN Reason: hypotension / volume replace Diltiazem HCl 125 mg/ Sodium (Chloride) 125 mls @ 5 mls/hr IV.CONT TITRATE PRN ; Protocol PRN Reason: Per Protocol Last Titration: 06/14/18 15:00 Dose: 0 mg/hr, 0 mls/hr Heparin Sodium/Dextrose (Heparin/D5w 25,000 U/250 Ml) 25,000 unit in 250 mls @ 6 mls/hr IV.CONT TITRATE PRN; Protocol PRN Reason: Per Protocol Last Titration: 06/14/18 11:00 Dose: Infused Insulin Aspart (Novolog Insulin Correctional Sugar Inj) 0 unit SQ Q6HR [facility]; Protocol Last Admin: 06/14/18 12:00 Dose: Not Given Lactulose (Lactulose Liq) 30 ml PO DAILY PRN PRN Reason: SEVERE CONSITIPATION Mannitol (Mannitol Inj) 12.5 gm IV.PUSH UNSCH PRN PRN Reason: hypotension / volume replace Metoprolol Tartrate (Lopressor) 50 mg PO BID [facility] Last Admin: 06/14/18 08:02 Dose: 50 mg Nicotine (Habitrol 14 Mg Patch.24 Hr) 1 patch T-DERMAL DAILY [facility] Last Admin: 06/14/18 08:01 Dose: 1 patch Nitroglycerin (Nitrostat Sl) 0.4 mg SL Q5M PRN PRN Reason: CHEST PAIN Ondansetron HCl (Zofran Inj) 4 mg IV.PUSH UNSCH PRN PRN Reason: NAUSEA OR VOMITING Ondansetron HCl (Zofran Inj) 4 mg IV.PUSH Q6H PRN PRN Reason: NAUSEA OR VOMITING Pantoprazole Sodium (Protonix Inj) 40 mg IV.PUSH DAILY [facility] Last Admin: 06/14/18 08:01 Dose: 40 mg Senna/Docusate Sodium (Meagan-Colace) 1 tab PO BID [facility] Last Admin: 06/14/18 10:45 Dose: Not Given Sennosides (Senokot) 17.2 mg PO Q12H PRN PRN Reason: Moderate Constipation Sertraline HCl (Zoloft) 50 mg PO DAILY [facility] Last Admin: 06/14/18 09:00 Dose: 50 mg Sodium Chloride (Ns Flush) 5 ml IV.FLUSH PRN PRN PRN Reason: flush each lumen during HD Sodium Chloride (Ns Flush) 2 ml IV.FLUSH PRN PRN PRN Reason: FLUSH AFTER USING IV ACCESS Sodium Chloride (Ns Flush) 2 ml IV.FLUSH BID [facility] Last Admin: 06/14/18 12:40 Dose: Not Given Physical Exam Vital signs: Vital Signs 06/13/18 17:19 06/13/18 18:00 06/13/18 19:00 Temperature Pulse Rate 120 H 110 H 118 H Respiratory Rate 21 18 21 Blood Pressure 141/78 H 176/76 H 154/65 H Pulse Oximetry 86 L 92 L 92 L 06/13/18 20:00 06/13/18 20:16 06/13/18 21:00 Temperature 98 F Pulse Rate 116 H 113 H 113 H Respiratory Rate 22 16 17 Blood Pressure 136/89 136/69 Pulse Oximetry 91 L 94 L 90 L 06/13/18 22:00 06/13/18 23:00 06/13/18 23:01 Temperature Pulse Rate 117 H 128 H 124 H Respiratory Rate 20 23 24 Blood Pressure 144/90 H 170/91 H Pulse Oximetry 92 L 89 L 06/13/18 23:30 06/14/18 00:00 06/14/18 00:01 Temperature 98.3 F Pulse Rate 112 H 120 H Respiratory Rate 23 24 Blood Pressure 180/83 H 161/99 H Pulse Oximetry 96 98 98 06/14/18 01:00 06/14/18 01:50 06/14/18 02:00 Temperature Pulse Rate 122 H 100 H 105 H Respiratory Rate 24 20 20 Blood Pressure 164/76 H 175/91 H Pulse Oximetry 95 94 L 06/14/18 03:00 06/14/18 03:01 06/14/18 03:14 Temperature Pulse Rate 104 H 104 H 137 H Respiratory Rate 19 24 23 Blood Pressure 214/94 H 224/88 H 212/84 H Pulse Oximetry 94 L 94 L 94 L 06/14/18 03:26 06/14/18 03:35 06/14/18 03:45 Temperature Pulse Rate 136 H 128 H 107 H Respiratory Rate 21 21 21 Blood Pressure 182/68 H 199/104 H 204/114 H Pulse Oximetry 93 L 91 L 94 L 06/14/18 04:00 06/14/18 04:01 06/14/18 04:03 Temperature Pulse Rate 142 H 136 H 120 H Respiratory Rate 26 H 25 H 26 H Blood Pressure 137/84 166/112 H Pulse Oximetry 93 L 93 L 92 L 06/14/18 04:05 06/14/18 05:00 06/14/18 05:01 Temperature 97.8 F Pulse Rate 137 H 128 H 121 H Respiratory Rate 24 24 23 Blood Pressure 195/88 H 174/84 H Pulse Oximetry 91 L 92 L 92 L 06/14/18 05:52 06/14/18 06:00 06/14/18 06:01 Temperature Pulse Rate 107 H 106 H 105 H Respiratory Rate 21 22 21 Blood Pressure 164/76 H 160/70 H Pulse Oximetry 96 97 97 06/14/18 07:00 06/14/18 07:01 06/14/18 07:03 Temperature Pulse Rate 99 H 101 H 104 H Respiratory Rate 23 23 22 Blood Pressure 185/111 H 182/78 H Pulse Oximetry 95 95 97 06/14/18 07:04 06/14/18 08:00 06/14/18 08:01 Temperature 97.8 F Pulse Rate 100 H 96 H 94 H Respiratory Rate 23 21 21 Blood Pressure 177/70 H 164/80 H Pulse Oximetry 97 97 98 06/14/18 08:18 06/14/18 09:00 06/14/18 09:01 Temperature Pulse Rate 93 H 89 92 H Respiratory Rate 25 H 23 20 Blood Pressure 176/71 H Pulse Oximetry 89 L 89 L 90 L 06/14/18 10:00 06/14/18 10:01 06/14/18 11:00 Temperature Pulse Rate 88 88 78 Respiratory Rate 19 18 14 Blood Pressure 169/73 H Pulse Oximetry 88 L 88 L 94 L 06/14/18 11:01 06/14/18 12:00 06/14/18 12:01 Temperature Pulse Rate 75 81 81 Respiratory Rate 15 15 12 Blood Pressure 152/63 H 138/78 Pulse Oximetry 94 L 92 L 91 L 06/14/18 12:47 06/14/18 13:00 06/14/18 13:01 Temperature Pulse Rate 81 87 95 H Respiratory Rate 16 19 20 Blood Pressure 148/70 H Pulse Oximetry 96 96 06/14/18 14:00 06/14/18 14:01 06/14/18 15:00 Temperature Pulse Rate 87 85 86 Respiratory Rate 17 15 16 Blood Pressure 115/57 L Pulse Oximetry 90 L 89 L 92 L 06/14/18 15:01 06/14/18 15:26 06/14/18 15:52 Temperature Pulse Rate 83 84 108 H Respiratory Rate 16 18 Blood Pressure 145/65 H Pulse Oximetry 89 L Intake & Output 06/13/18 06/14/18 06/14/18 18:59 06:59 18:59 Intake Total 1200 / 1200 1320 / 1320 Output Total 90 / 90 Balance 1200 / 1200 1230 / 1230 Weight 42.5 kg Intake: IV 1200 / 1200 1200 / 1200 NS Inj 1,000 ML @ 75 mls/hr IV. 900 / 900 1100 / 1100 CONT .[id number] [facility] Rx#:[id number] Azithromycin Inj 500 MG In NS 250 / 250 Inj 250 ML @ 250 mls/hr IV.SIG Q24H [facility] Rx#:[id number] Zosyn 2.25 GM Premix 2.25 gm In 50 / 50 100 / 100 50 ml @ 100 mls/hr IV.SIG Q8H [facility] Rx#:[id number] Oral 120 / 120 Output: Urine Amount (Catheter) / Female External Other: # Voids 2 4 # Incontinent Voids 4 Date of Last Bowel Movement 06/13/18 06/14/18 06/14/18 # Bowel Movements 1 3 # Incontinent Bowel Movements 9 - Constitutional no acute distress - Routine HEENT Exam Head: Present: normocephalic Eye: Present: PERRL ENT: Present: mucous membranes moist - Routine Neck Exam Present: full ROM - Routine Respiratory Exam Present: decreased breath sounds, crackles - Routine Cardiovascular Exam Present: S1, S2, tachycardia, irregular rhythm - Routine Abdominal Exam Present: normoactive bowel sounds - Routine Extremities Exam Present: full ROM, pulses intact, normal capillary refill. Absent: cyanosis, clubbing, edema - Routine Skin Exam Present: intact - Routine Neurological Exam Present: oriented X3 - Detailed Neurological Exam: Coma Scale Eye Opening: Spontaneous Verbal Response: Oriented Motor Response: Obey commands [place] Coma Scale Total: 15 - Routine Psychiatric Exam Present: normal affect - Urinary Catheter Management Indwelling Urethral Catheter Cath placed during this visit: yes, but has since been removed by the nurse Reason for continuing: Hourly intake/output Insertion date: 06/14/18 Insertion time: 10:30 Removal date: 06/12/18 Removal time: 13:55 Female External Cath placed during this visit: no Results 06/14/18 03:47 06/14/18 09:50 Cardiac Enzymes 06/13/18 06/13/18 06/13/18 Range/Units 06:40 06:40 16:33 AST 87 H (15-37) U/L Troponin I 13.00 H* D Cancelled 7.58 H* D (0.02-0.05) ng/mL 06/13/18 Range/Units 19:57 AST (15-37) U/L Troponin I 7.19 H* D (0.02-0.05) ng/mL Coagulation 06/13/18 06/13/18 06/14/18 Range/Units 16:33 19:57 03:47 PT 12.9 H (9.8-11.6) sec APTT 60.4 H 90.7 H* D 49.2 H D (23.4-31.7) sec 06/14/18 Range/Units 09:50 PT (9.8-11.6) sec APTT 41.3 H (23.4-31.7) sec CBC 06/13/18 06/14/18 Range/Units 06:40 03:47 WBC 10.4 15.2 H (4.0-11.0) th/mm3 RBC 3.33 L 3.47 L (4.00-5.30) mil/mm3 Hgb 10.4 L 10.4 L (11.6-15.3) gm/dL Hct 29.4 L 31.3 L (35.0-46.0) % Plt Count 171 175 (150-450) th/mm3 Neut # (Auto) 8.0 H (1.8-7.7) th/mm3 Lymph # (Auto) 1.4 (1.0-4.8) th/mm3 [place] # (Auto) 0.9 (0.0-0.9) th/mm3 Eos # (Auto) 0.1 (0.0-0.4) th/mm3 Baso # (Auto) 0.0 (0.0-0.2) th/mm3 Comprehensive Metabolic Panel 06/13/18 06/14/18 Range/Units 06:40 09:50 Sodium 144 142 (136-145) meq/L Potassium 3.2 L 3.6 (3.5-5.1) meq/L Chloride 111 H 109 H (98-107) meq/L Carbon Dioxide 23.5 21.4 (21.0-32.0) meq/L BUN 35 H 33 H (7-18) mg/dL Creatinine 1.71 H 1.45 H (0.50-1.00) mg/dL Calcium 7.1 L* 8.3 L D (8.5-10.1) mg/dL AST 87 H (15-37) U/L ALT 45 (10-53) U/L Alkaline Phosphatase 50 (45-117) U/L Total Protein 5.2 L (6.4-8.2) g/dL Albumin 2.8 L (3.4-5.0) g/dL Intake and Output 06/14/18 06/14/18 06/14/18 06:59 14:59 22:59 Intake Total 1270 / 1270 / 20 Output Total 90 / Balance 1180 / 1180 / 20 Intake: IV 1150 / 1150 / 20 NS Inj 1,000 ML @ 75 mls/hr IV. 1100 / 1100 CONT .[id number] [facility] Rx#:[id number] Zosyn 2.25 GM Premix 2.25 gm In 50 / 50 50 ml @ 100 mls/hr IV.SIG Q8H [facility] Rx#:[id number] Oral 120 / 120 Output: Urine Amount (Catheter) / Female External 90 / Other: # Voids 4 # Incontinent Voids 4 Date of Last Bowel Movement 06/14/18 06/14/18 06/14/18 # Bowel Movements 3 # Incontinent Bowel Movements 9 Weight 42.5 kg - Imaging and Cardiology Imaging: Impressions Chest X-Ray 06/14/18 00:00 CONCLUSION: Radiographic pattern consistent with intra-alveolar pulmonary edema and small bilateral pleural effusions. Assessment and Plan - Assessment (1) Atrial fibrillation with RVR Code(s): I48.91 - Unspecified atrial fibrillation Status: Acute (2) Elevated troponin Code(s): R74.8 - Abnormal levels of other serum enzymes Status: Acute (3) Acute renal failure Code(s): N17.9 - Acute kidney failure, unspecified Status: Acute (4) Acute hyperkalemia Code(s): E87.5 - Hyperkalemia Status: Acute (5) COPD (chronic obstructive pulmonary disease) Code(s): J44.9 - Chronic obstructive pulmonary disease, unspecified Status: Chronic (6) Tobacco abuse Code(s): Z72.0 - Tobacco use Status: Chronic - Plan We will consult pulmonary medicine due to her COPD and dyspnea. She remains in atrial fibrillation, we will increase her metoprolol to 75 mg BID for rate control. Unable to start full anticoagulation due to positive occult blood in stool, continue anticoagulation with heparin and ASA. Increase her activity as she tolerates. Renal function has improved, nephrology evaluation and treatment in progress. Continue to monitor the patient on telemetry. We will continue to monitor the patient during her hospitalization. Discussed the treatment plan with the patient and her son. They verbalized understanding. The patient was seen and evaluated by Dr. Saleh who participated in care, management and decision making. - Attending Attestation Patient seen and examined. I reviewed and agree with the evaluation and plan as presented. Continue monitoring. Increase beta dominguez dose. Unable to fully anticoagulate due to the suspected GI bleed. Increase activity. (3) Acute renal failure Qualifiers: Acute renal failure type: unspecified Qualified Code(s): N17.9 - Acute kidney failure, unspecified (5) COPD (chronic obstructive pulmonary disease) Qualifiers: COPD type: unspecified COPD Qualified Code(s): J44.9 - Chronic obstructive pulmonary disease, unspecified
--- NOTE | 2018-06-14 21:21 | ECG ---
Date Performed: 06/13/2018 Time Performed: 13:32:14 PTAGE: 77 years EKG: Atrial fibrillation with rapid ventricular response. LVH with secondary repolarization abno rmality Extensive ST-T changes are probably due to ventricular hypertrophy Abnormal ECG PREVIOUS TRACING : 06/13/2018 10.11 Since the previous tracing, no significant change noted DOCTOR: Tammy Saleh Interpretating Date/Time 06/14/2018 21:20:25
--- NOTE | 2018-06-14 21:36 | ECG ---
Date Performed: 06/13/2018 Time Performed: 10:11:28 PTAGE: 77 years EKG: ATRIAL FIBRILLATION WITH RAPID VENTRICULAR RESPONSE ST DEVIATION AND MODERATE T-WAVE ABNORM ALITY PREVIOUS TRACING : 06/11/2018 09.30 Compared to previous tracing, SR no longer present DOCTOR: Tammy Saleh Interpretating Date/Time 06/14/2018 21:35:25
[2018-06-15] MEDS: Insulin NovoLOG Aspart Correctional Sugar Inj SQ SCH ×4 (01:48→18:22)
[2018-06-15] MEDS: Ciprofloxacin 500 MG Tablet PO SCH ×2 (03:36→23:28)
[2018-06-15] MEDS: Chlorhexidine Gluconate 2% 1 Pack (2 Cloths) TOPICAL SCH (03:43)
[2018-06-15] MEDS: Metoprolol Tartrate 25 MG Tablet PO SCH (05:32)
[2018-06-15 05:33] LABS: Hematocrit 26.9 % (35.0-46.0); Hemoglobin 9.1 gm/dL (11.6-15.3); Mean Corpuscular HGB Conc 33.8 % (32.0-36.0); Mean Corpuscular Hemoglobin 30.9 pg (27.0-34.0); Mean Corpuscular Volume 91.7 fL (80.0-100.0); Mean Platelet Volume 8.9 fL (7.0-11.0); Platelet Count 145 th/mm3 (150-450); Red Blood Count 2.94 mil/mm3 (4.00-5.30); Red Cell Distribution Width 15.2 % (11.6-17.2); White Blood Count 9.7 th/mm3 (4.0-11.0)
[2018-06-15 05:56] LABS: Calcium 7.7 mg/dL (8.5-10.1); Carbon Dioxide 21.8 meq/L (21.0-32.0); Magnesium 1.4 mg/dL (1.5-2.5); Potassium 3.4 meq/L (3.5-5.1)
[2018-06-15] MEDS: amLODIPine 5 MG Tablet PO SCH (08:52)
[2018-06-15] MEDS: Senna/Docusate Sodium 8.6/50 MG Tablet PO SCH ×2 (08:52→20:43)
[2018-06-15] MEDS: Pantoprazole Inj 40 MG Vial IV.PUSH SCH (08:52)
[2018-06-15] MEDS: Sertraline 50 MG Tablet PO SCH (08:52)
[2018-06-15] MEDS ORDERED: Mag Sulf 1 gm/100 ml Premix 100 ML IV.SIG ONE (09:00)
--- NOTE | 2018-06-15 10:43 | P.PNIM ---
Subjective Interval history: continues to have tachycardia and appears irregularly irregular no chest pain no palp no dizziness K low and Mg low today OOB later had been off cardizem drip and got PO metoprolol this morning Physical Exam Vital signs: Vital Signs 06/14/18 11:00 06/14/18 11:01 06/14/18 12:00 Temperature Pulse Rate 78 75 81 Respiratory Rate 14 15 15 Blood Pressure 152/63 H Pulse Oximetry 94 L 94 L 92 L 06/14/18 12:01 06/14/18 12:47 06/14/18 13:00 Temperature Pulse Rate 81 81 87 Respiratory Rate 12 16 19 Blood Pressure 138/78 Pulse Oximetry 91 L 96 06/14/18 13:01 06/14/18 14:00 06/14/18 14:01 Temperature Pulse Rate 95 H 87 85 Respiratory Rate 20 17 15 Blood Pressure 148/70 H 115/57 L Pulse Oximetry 96 90 L 89 L 06/14/18 15:00 06/14/18 15:01 06/14/18 15:26 Temperature Pulse Rate 86 83 84 Respiratory Rate 16 16 Blood Pressure 145/65 H Pulse Oximetry 92 L 89 L 06/14/18 15:52 06/14/18 16:00 06/14/18 16:01 Temperature Pulse Rate 108 H 86 82 Respiratory Rate 18 13 14 Blood Pressure 121/60 Pulse Oximetry 98 99 06/14/18 17:00 06/14/18 17:01 06/14/18 18:00 Temperature Pulse Rate 111 H 110 H 110 H Respiratory Rate 28 H 34 H 29 H Blood Pressure 135/55 L Pulse Oximetry 95 92 L 92 L 06/14/18 18:01 06/14/18 19:00 06/14/18 19:01 Temperature Pulse Rate 110 H 113 H 114 H Respiratory Rate 22 27 H 28 H Blood Pressure 126/66 142/95 H Pulse Oximetry 90 L 92 L 89 L 06/14/18 20:00 06/14/18 20:01 06/14/18 20:14 Temperature 98.8 F Pulse Rate 88 94 H 72 Respiratory Rate 24 26 H 24 Blood Pressure 128/61 Pulse Oximetry 93 L 93 L 100 06/14/18 21:00 06/14/18 21:01 06/14/18 22:00 Temperature Pulse Rate 96 H 97 H 107 H Respiratory Rate 21 23 22 Blood Pressure 146/61 H Pulse Oximetry 93 L 94 L 94 L 06/14/18 22:01 06/14/18 23:00 06/14/18 23:01 Temperature Pulse Rate 99 H 101 H 92 H Respiratory Rate 21 18 19 Blood Pressure 146/62 H 156/69 H Pulse Oximetry 94 L 97 96 06/15/18 00:00 06/15/18 00:01 06/15/18 00:09 Temperature 98.8 F Pulse Rate 78 78 77 Respiratory Rate 20 22 24 Blood Pressure 145/80 H Pulse Oximetry 95 95 06/15/18 01:00 06/15/18 01:01 06/15/18 02:00 Temperature Pulse Rate 76 76 112 H Respiratory Rate 13 16 14 Blood Pressure 130/59 L Pulse Oximetry 98 98 98 06/15/18 02:01 06/15/18 03:00 06/15/18 03:01 Temperature Pulse Rate 120 H 114 H 110 H Respiratory Rate 15 13 13 Blood Pressure 142/60 H 108/57 L Pulse Oximetry 98 100 100 06/15/18 04:00 06/15/18 04:01 06/15/18 05:00 Temperature Pulse Rate 109 H 113 H 113 H Respiratory Rate 12 13 14 Blood Pressure 154/70 H Pulse Oximetry 100 100 100 06/15/18 05:01 06/15/18 06:00 06/15/18 06:01 Temperature Pulse Rate 113 H 110 H 111 H Respiratory Rate 12 12 14 Blood Pressure 140/64 133/60 Pulse Oximetry 100 100 100 06/15/18 07:00 06/15/18 07:01 06/15/18 07:40 Temperature Pulse Rate 99 H 100 H 112 H Respiratory Rate 12 12 Blood Pressure 137/63 Pulse Oximetry 100 99 98 06/15/18 08:00 06/15/18 08:01 06/15/18 08:02 Temperature 98.2 F Pulse Rate 103 H 109 H 96 H Respiratory Rate 14 25 H 16 Blood Pressure 148/72 H Pulse Oximetry 100 94 L 95 06/15/18 09:00 06/15/18 09:01 06/15/18 10:00 Temperature Pulse Rate 123 H 114 H 121 H Respiratory Rate 23 20 Blood Pressure 152/71 H Pulse Oximetry 95 95 Intake & Output 06/14/18 06/15/18 06/15/18 18:59 06:59 18:59 Intake Total 20 / 20 300 / 300 100 / 100 Output Total 1400 / 1400 400 / 400 Balance -1380 / -1380 -100 / -100 100 / 100 Weight 42.4 kg Intake: IV 100 / 100 Magnesium Sulfate 1 gm/D5W 100 100 / 100 ml Premix 100 ML @ 100 mls/hr IV.SIG ONCE ONE Rx#:[id number] Oral 300 / 300 Output: Urine Amount (Catheter) 1400 / 1400 400 / 400 Indwelling Urethral Catheter 1400 / 1400 400 / 400 Other: Date of Last Bowel Movement 06/14/18 06/14/18 06/14/18 # Bowel Movements 0 Urinary Catheter Management Indwelling Urethral Catheter: Cath placed during this visit: yes, but has since been removed by the nurse Reason for continuing: Hourly intake/output Insertion date: 06/14/18 Insertion time: 10:30 Removal date: 06/12/18 Removal time: 13:55 Female External: Cath placed during this visit: no Results Labs CBC & Chem 7: 06/15/18 04:50 06/15/18 04:50 Labs: Microbiology 06/11/18 09:47 Blood - Peripheral Aerobic Blood Culture - Preliminary No growth in 3 days 06/11/18 09:47 Blood - Peripheral Anaerobic Blood Culture - Preliminary No growth in 3 days 06/11/18 09:47 Blood - Peripheral Aerobic Blood Culture - Preliminary No growth in 3 days 06/11/18 09:47 Blood - Peripheral Anaerobic Blood Culture - Preliminary No growth in 3 days 06/11/18 10:00 Catheterized Urine Urine Culture - Final Escherichia coli Viridans streptococcus grp Assessment and Plan (1) Atrial fibrillation with RVR: Code(s): I48.91 - Unspecified atrial fibrillation Status: Acute (2) Elevated troponin: Code(s): R74.8 - Abnormal levels of other serum enzymes Status: Acute (3) Acute renal failure: Code(s): N17.9 - Acute kidney failure, unspecified Status: Acute (4) Acute hyperkalemia: Code(s): E87.5 - Hyperkalemia Status: Acute (5) COPD (chronic obstructive pulmonary disease): Code(s): J44.9 - Chronic obstructive pulmonary disease, unspecified Status: Chronic (6) Tobacco abuse: Code(s): Z72.0 - Tobacco use Status: Chronic Plan Patient is a 77-year-old female with long-standing smoking history presenting with new onset hyperkalemia and weakness requiring emergent hemodialysis with hospital course complicated by development of atrial fibrillation requiring BB for rate control with occult positive stools and heparin ggt discontinued. Nephrology: Acute renal failure, hyperkalemia (resolved), hypophosphatemia, acute kidney injury Suspect the patient's hyperkalemia may have been induced from acute renal failure in the setting of recent Bactrim use as an outpatient. Nephrology consulted recommendations to be appreciated. Currently signed off and stopped further HD sessions currently Cardiology: Essential hypertension, New Atrial fibrillation - Cardiology consulted and recommendations appreciated - extensive discussion re: AC at bedside given a fib w/ blood occult positive. At this time will hold off blood thinner and treat conservatively medically with BB and rate controlling agents - metoprolol 75mg BID - echo reviewed. no vegetations. Infectious disease: Diarrhea, E. coli UTI Send C. difficile PCR is patient with recent antibiotic use Urine culture positive for E. coli. Cipro PO Patient CARE: Smoking Approximately 15 minutes was spent counseling the patient is cessation techniques previously. CODE STATUS: Full code DVT prophylaxis: SCD Diet: Low potassium diet Progress Note: Quality VTE Deep Vein Thrombosis/Pulmonary Embolism Present on Admission: No _ (1) Acute renal failure Qualifiers: Acute renal failure type: unspecified Qualified Code(s): N17.9 - Acute kidney failure, unspecified (2) COPD (chronic obstructive pulmonary disease) Qualifiers: COPD type: unspecified COPD Chronic bronchitis type: Emphysema type: Qualified Code(s): J44.9 - Chronic obstructive pulmonary disease, unspecified
[2018-06-15] MEDS: Heparin - SQ 10,000 UNITS/ML Vial SQ SCH ×2 (11:06→23:21)
--- NOTE | 2018-06-15 12:59 | P.PNCA ---
Subjective Interval history: She is currently eating lunch. She denies any CP, pressure, dizziness or edema. She does complain of a sore throat, occasional palpitations and shortness of breath. Medications and Allergies Allergies Allergy/AdvReac Type Severity Reaction Status Date / Time No Known Allergies Allergy Verified 06/11/18 09:25 Home Medications Medication Instructions Recorded Confirmed Type amlodipine 10 mg PO DAILY 06/11/18 06/11/18 History buspirone 10 mg PO BID 06/11/18 06/11/18 History cetirizine 10 mg PO DAILY 06/11/18 06/11/18 History lisinopril 40 mg PO DAILY 06/11/18 06/11/18 History metoprolol succinate 50 mg PO BID 06/11/18 06/11/18 History sertraline 50 mg PO DAILY 06/11/18 06/11/18 History sulfamethoxazole-trimethoprim 1 tab PO Q12H 06/11/18 06/11/18 History Active Medications: Active Medications Acetaminophen (Tylenol) 650 mg PO UNSCH PRN PRN Reason: SEE LABEL COMMENTS Acetaminophen (Tylenol) 650 mg PO Q6H PRN PRN Reason: PAIN 1-10 AND/OR FEVER >101F Last Admin: 06/13/18 01:42 Dose: 650 mg Al Hydroxide/Mg Hydroxide (Milk Of Carmelita Parada) 30 ml PO Q12H PRN PRN Reason: Mild Constipation Albuterol (Albuterol Neb (Prn)) 2.5 mg NEB Q2HR NEB PRN PRN Reason: SHORTNESS OF BREATH/WHEEZING Last Admin: 06/14/18 01:50 Dose: 2.5 mg Amlodipine Besylate (Norvasc) 5 mg PO DAILY [facility] Last Admin: 06/15/18 08:52 Dose: 5 mg Bisacodyl (Dulcolax Supp) 10 mg RECTAL DAILY PRN PRN Reason: SEVERE CONSITIPATION Buspirone HCl (Buspar) 10 mg PO BID [facility] Last Admin: 06/15/18 08:52 Dose: 10 mg Cetirizine HCl (Zyrtec) 10 mg PO DAILY [facility] Last Admin: 06/15/18 08:52 Dose: 10 mg Chlorhexidine Gluconate (Chlorhexidine 2% Cloth) 3 pack TOPICAL DAILY@0400 [facility] Stop: 06/17/18 03:59 Last Admin: 06/15/18 03:43 Dose: 3 pack Chlorhexidine Gluconate (Chlorhexidine 2% Cloth) 3 pack TOPICAL DAILY@0400 PRN PRN Reason: Extra cloth needed Stop: 06/17/18 03:59 Ciprofloxacin HCl (Cipro) 500 mg PO Q18H [facility] Last Admin: 06/15/18 03:36 Dose: 500 mg Dextrose (D50w Vial) 50 ml IV.PUSH UNSCH PRN PRN Reason: PER HYPOGLYCEMIA PROTOCOL Diphenhydramine HCl (Benadryl) 25 mg PO UNSCH PRN PRN Reason: SEE LABEL COMMENTS Gelatin (Gelfoam 12 Mm/7 Mm Topical) 1 foam TOPICAL PRN PRN PRN Reason: help stop bleeding from site Gentamicin Sulfate (Gentamicin Inj) 20 mg OTHER WITH DIALYSIS PRN PRN Reason: Dwell Gentamycin Lock Last Admin: 06/11/18 14:43 Dose: 20 mg Glucagon (Glucagon Inj) 1 mg OTHER PRN PRN PRN Reason: for Hypoglycemia Protocol Heparin Sodium (Porcine) (Heparin Inj) 8,000 units OTHER WITH DIALYSIS PRN PRN Reason: for machine prime Heparin Sodium (Porcine) (Heparin Inj) 1,000 units OTHER WITH DIALYSIS PRN PRN Reason: Dwell Heparin to Fill Catheter Last Admin: 06/11/18 14:43 Dose: 1,000 units Heparin Sodium (Porcine) (Heparin Inj) 5,000 units SQ Q12H [facility] Last Admin: 06/15/18 11:06 Dose: 5,000 units Heparin Sodium (Porcine) (Heparin Inj) 0 units IV.FLUSH WITH DIALYSIS PRN PRN Reason: Flush each lumen Albumin Human (Flexbumin 25% Inj) 100 mls @ 60 mls/hr IV.SIG WITH DIALYSIS PRN PRN Reason: hypotension / volume replace Last Infusion: 06/11/18 15:39 Dose: Infused Sodium Chloride (Ns Inj) 1,000 mls @ 0 mls/hr OTHER .Q0M PRN PRN Reason: for prime and rinse back Sodium Chloride (Ns Inj) 1,000 mls @ 0 mls/hr IV.CONT .Q0M PRN PRN Reason: hypotension / volume replace Diltiazem HCl 125 mg/ Sodium (Chloride) 125 mls @ 5 mls/hr IV.CONT TITRATE PRN ; Protocol PRN Reason: Per Protocol Last Titration: 06/14/18 15:00 Dose: 0 mg/hr, 0 mls/hr Heparin Sodium/Dextrose (Heparin/D5w 25,000 U/250 Ml) 25,000 unit in 250 mls @ 6 mls/hr IV.CONT TITRATE PRN; Protocol PRN Reason: Per Protocol Last Titration: 06/14/18 11:00 Dose: Infused Insulin Aspart (Novolog Insulin Correctional Sugar Inj) 0 unit SQ Q6HR [facility]; Protocol Last Admin: 06/15/18 11:06 Dose: Not Given Lactulose (Lactulose Liq) 30 ml PO DAILY PRN PRN Reason: SEVERE CONSITIPATION Mannitol (Mannitol Inj) 12.5 gm IV.PUSH UNSCH PRN PRN Reason: hypotension / volume replace Nicotine (Habitrol 14 Mg Patch.24 Hr) 1 patch T-DERMAL DAILY [facility] Last Admin: 06/15/18 08:53 Dose: 1 patch Nitroglycerin (Nitrostat Sl) 0.4 mg SL Q5M PRN PRN Reason: CHEST PAIN Ondansetron HCl (Zofran Inj) 4 mg IV.PUSH UNSCH PRN PRN Reason: NAUSEA OR VOMITING Ondansetron HCl (Zofran Inj) 4 mg IV.PUSH Q6H PRN PRN Reason: NAUSEA OR VOMITING Pantoprazole Sodium (Protonix Inj) 40 mg IV.PUSH DAILY [facility] Last Admin: 06/15/18 08:52 Dose: 40 mg Senna/Docusate Sodium (Meagan-Colace) 1 tab PO BID [facility] Last Admin: 06/15/18 08:52 Dose: 1 tab Sennosides (Senokot) 17.2 mg PO Q12H PRN PRN Reason: Moderate Constipation Sertraline HCl (Zoloft) 50 mg PO DAILY [facility] Last Admin: 06/15/18 08:52 Dose: 50 mg Sodium Chloride (Ns Flush) 5 ml IV.FLUSH PRN PRN PRN Reason: flush each lumen during HD Sodium Chloride (Ns Flush) 2 ml IV.FLUSH PRN PRN PRN Reason: FLUSH AFTER USING IV ACCESS Sodium Chloride (Ns Flush) 2 ml IV.FLUSH BID [facility] Last Admin: 06/15/18 08:52 Dose: 2 ml Physical Exam Vital signs: Vital Signs 06/14/18 13:00 06/14/18 13:01 06/14/18 14:00 Temperature Pulse Rate 87 95 H 87 Respiratory Rate 19 20 17 Blood Pressure 148/70 H Pulse Oximetry 96 96 90 L 06/14/18 14:01 06/14/18 15:00 06/14/18 15:01 Temperature Pulse Rate 85 86 83 Respiratory Rate 15 16 16 Blood Pressure 115/57 L 145/65 H Pulse Oximetry 89 L 92 L 89 L 06/14/18 15:26 06/14/18 15:52 06/14/18 16:00 Temperature Pulse Rate 84 108 H 86 Respiratory Rate 18 13 Blood Pressure Pulse Oximetry 98 06/14/18 16:01 06/14/18 17:00 06/14/18 17:01 Temperature Pulse Rate 82 111 H 110 H Respiratory Rate 14 28 H 34 H Blood Pressure 121/60 135/55 L Pulse Oximetry 99 95 92 L 06/14/18 18:00 06/14/18 18:01 06/14/18 19:00 Temperature Pulse Rate 110 H 110 H 113 H Respiratory Rate 29 H 22 27 H Blood Pressure 126/66 Pulse Oximetry 92 L 90 L 92 L 06/14/18 19:01 06/14/18 20:00 06/14/18 20:01 Temperature 98.8 F Pulse Rate 114 H 88 94 H Respiratory Rate 28 H 24 26 H Blood Pressure 142/95 H 128/61 Pulse Oximetry 89 L 93 L 93 L 06/14/18 20:14 06/14/18 21:00 06/14/18 21:01 Temperature Pulse Rate 72 96 H 97 H Respiratory Rate 24 21 23 Blood Pressure 146/61 H Pulse Oximetry 100 93 L 94 L 06/14/18 22:00 06/14/18 22:01 06/14/18 23:00 Temperature Pulse Rate 107 H 99 H 101 H Respiratory Rate 22 21 18 Blood Pressure 146/62 H Pulse Oximetry 94 L 94 L 97 06/14/18 23:01 06/15/18 00:00 06/15/18 00:01 Temperature 98.8 F Pulse Rate 92 H 78 78 Respiratory Rate 19 20 22 Blood Pressure 156/69 H 145/80 H Pulse Oximetry 96 95 95 06/15/18 00:09 06/15/18 01:00 06/15/18 01:01 Temperature Pulse Rate 77 76 76 Respiratory Rate 24 13 16 Blood Pressure 130/59 L Pulse Oximetry 98 98 06/15/18 02:00 06/15/18 02:01 06/15/18 03:00 Temperature Pulse Rate 112 H 120 H 114 H Respiratory Rate 14 15 13 Blood Pressure 142/60 H Pulse Oximetry 98 98 100 06/15/18 03:01 06/15/18 04:00 06/15/18 04:01 Temperature Pulse Rate 110 H 109 H 113 H Respiratory Rate 13 12 13 Blood Pressure 108/57 L 154/70 H Pulse Oximetry 100 100 100 06/15/18 05:00 06/15/18 05:01 06/15/18 06:00 Temperature Pulse Rate 113 H 113 H 110 H Respiratory Rate 14 12 12 Blood Pressure 140/64 Pulse Oximetry 100 100 100 06/15/18 06:01 06/15/18 07:00 06/15/18 07:01 Temperature Pulse Rate 111 H 99 H 100 H Respiratory Rate 14 12 12 Blood Pressure 133/60 137/63 Pulse Oximetry 100 100 99 06/15/18 07:40 06/15/18 08:00 06/15/18 08:01 Temperature 98.2 F Pulse Rate 112 H 103 H 109 H Respiratory Rate 14 25 H Blood Pressure 148/72 H Pulse Oximetry 98 100 94 L 06/15/18 08:02 06/15/18 09:00 06/15/18 09:01 Temperature Pulse Rate 96 H 123 H 114 H Respiratory Rate 16 23 20 Blood Pressure 152/71 H Pulse Oximetry 95 95 95 06/15/18 10:00 06/15/18 10:01 06/15/18 11:00 Temperature Pulse Rate 123 H 119 H 108 H Respiratory Rate 24 24 27 H Blood Pressure 108/59 L Pulse Oximetry 96 99 99 06/15/18 11:02 Temperature Pulse Rate 108 H Respiratory Rate 25 H Blood Pressure 121/63 Pulse Oximetry 94 L Intake & Output 06/14/18 06/15/18 06/15/18 18:59 06:59 18:59 Intake Total 20 / 20 300 / 300 100 / 100 Output Total 1400 / 1400 400 / 400 Balance -1380 / -1380 -100 / -100 100 / 100 Weight 42.4 kg Intake: IV 20 / 20 100 / 100 Magnesium Sulfate 1 gm/D5W 100 100 / 100 ml Premix 100 ML @ 100 mls/hr IV.SIG ONCE ONE Rx#:[id number] Oral 300 / 300 Output: Urine Amount (Catheter) 1400 / 1400 400 / 400 Indwelling Urethral Catheter 1400 / 1400 400 / 400 Other: Date of Last Bowel Movement 06/14/18 06/14/18 06/14/18 # Bowel Movements 0 - Constitutional no acute distress - Routine HEENT Exam Head: Present: normocephalic Eye: Present: PERRL ENT: Present: mucous membranes moist - Routine Neck Exam Present: full ROM - Routine Respiratory Exam Present: rhonchi - Routine Cardiovascular Exam Present: S1, S2, irregular rhythm Comments: atrial fibrillation - Routine Abdominal Exam Present: normoactive bowel sounds - Routine Extremities Exam Present: full ROM, pulses intact, normal capillary refill. Absent: cyanosis, clubbing, edema - Routine Skin Exam Present: intact - Routine Neurological Exam Present: oriented X3 - Detailed Neurological Exam: Coma Scale Eye Opening: Spontaneous Verbal Response: Oriented Motor Response: Obey commands Jay Coma Scale Total: 15 - Routine Psychiatric Exam Present: normal affect - Urinary Catheter Management Indwelling Urethral Catheter Cath placed during this visit: yes, but has since been removed by the nurse Reason for continuing: Hourly intake/output Insertion date: 06/14/18 Insertion time: 10:30 Removal date: 06/12/18 Removal time: 13:55 Female External Cath placed during this visit: no Results 06/15/18 04:50 06/15/18 04:50 Cardiac Enzymes 06/13/18 06/13/18 06/13/18 Range/Units 06:40 06:40 16:33 AST 87 H (15-37) U/L Troponin I 13.00 H* D Cancelled 7.58 H* D (0.02-0.05) ng/mL 06/13/18 Range/Units 19:57 AST (15-37) U/L Troponin I 7.19 H* D (0.02-0.05) ng/mL Coagulation 06/13/18 06/13/18 06/14/18 Range/Units 16:33 19:57 03:47 PT 12.9 H (9.8-11.6) sec APTT 60.4 H 90.7 H* D 49.2 H D (23.4-31.7) sec 06/14/18 Range/Units 09:50 PT (9.8-11.6) sec APTT 41.3 H (23.4-31.7) sec CBC 06/14/18 06/15/18 Range/Units 03:47 04:50 WBC 15.2 H 9.7 (4.0-11.0) th/mm3 RBC 3.47 L 2.94 L (4.00-5.30) mil/mm3 Hgb 10.4 L 9.1 L (11.6-15.3) gm/dL Hct 31.3 L 26.9 L (35.0-46.0) % Plt Count 175 145 L (150-450) th/mm3 Comprehensive Metabolic Panel 06/13/18 06/14/18 06/15/18 Range/Units 06:40 09:50 04:50 Sodium 144 142 143 (136-145) meq/L Potassium 3.2 L 3.6 3.4 L (3.5-5.1) meq/L Chloride 111 H 109 H 110 H (98-107) meq/L Carbon Dioxide 23.5 21.4 21.8 (21.0-32.0) meq/L BUN 35 H 33 H 35 H (7-18) mg/dL Creatinine 1.71 H 1.45 H 1.44 H (0.50-1.00) mg/dL Calcium 7.1 L* 8.3 L D 7.7 L (8.5-10.1) mg/dL AST 87 H (15-37) U/L ALT 45 (10-53) U/L Alkaline Phosphatase 50 (45-117) U/L Total Protein 5.2 L (6.4-8.2) g/dL Albumin 2.8 L (3.4-5.0) g/dL Intake and Output 06/14/18 06/15/18 06/15/18 22:59 06:59 14:59 Intake Total 300 / 300 100 / 100 Output Total 1400 / 1400 400 / 400 Balance -1400 / -1400 -100 / -100 100 / 100 Intake: IV 100 / 100 Magnesium Sulfate 1 gm/D5W 100 100 / 100 ml Premix 100 ML @ 100 mls/hr IV.SIG ONCE ONE Rx#:[id number] Oral 300 / 300 Output: Urine Amount (Catheter) 1400 / 1400 400 / 400 Indwelling Urethral Catheter 1400 / 1400 400 / 400 Other: Date of Last Bowel Movement 06/14/18 06/14/1806/14/19 # Bowel Movements 0 Weight 42.4 kg - Imaging and Cardiology Imaging: Impressions Chest X-Ray 06/14/18 00:00 CONCLUSION: Radiographic pattern consistent with intra-alveolar pulmonary edema and small bilateral pleural effusions. Assessment and Plan - Assessment (1) Atrial fibrillation with RVR Code(s): I48.91 - Unspecified atrial fibrillation Status: Acute (2) Elevated troponin Code(s): R74.8 - Abnormal levels of other serum enzymes Status: Acute (3) Acute renal failure Code(s): N17.9 - Acute kidney failure, unspecified Status: Acute (4) Acute hyperkalemia Code(s): E87.5 - Hyperkalemia Status: Acute (5) COPD (chronic obstructive pulmonary disease) Code(s): J44.9 - Chronic obstructive pulmonary disease, unspecified Status: Chronic (6) Tobacco abuse Code(s): Z72.0 - Tobacco use Status: Chronic - Plan There are no new cardiac issues noted at this time. She continues to be in atrial fibrillation with RVR, rate is 110's - 130's. Her blood pressure is stable, we will increase her metoprolol to 100mg BID for rate control. Pulmonary medicine has been consulted for further evaluation and treatment of her COPD and dyspnea, awaiting their recommendations. Unable to start full anticoagulation due to positive occult blood in stool, continue anticoagulation with heparin and ASA. Increase her activity as she tolerates. Nephrology evaluation and treatment in progress. Continue to monitor the patient on telemetry. We will continue to monitor the patient during her hospitalization. The patient was seen and evaluated by Dr. Saleh who participated in care, management and decision making. - Attending Attestation Patient seen and examined. I reviewed and agree with the evaluation and plan as presented. Continue current program, titrate AF rate control. Remains asymptomatic. Increase activity, PT. (3) Acute renal failure Qualifiers: Acute renal failure type: unspecified Qualified Code(s): N17.9 - Acute kidney failure, unspecified (5) COPD (chronic obstructive pulmonary disease) Qualifiers: COPD type: unspecified COPD Qualified Code(s): J44.9 - Chronic obstructive pulmonary disease, unspecified
[2018-06-15] MEDS: Metoprolol Tartrate 100 MG Tablet PO SCH ×2 (14:51→18:22)
--- NOTE | 2018-06-15 18:39 | MB ---
cc: Natalie Estrada MD DATE: 06/15/2018 REASON FOR CONSULTATION: COPD. HISTORY OF PRESENT ILLNESS: Ms. Miller is a 77-year-old female with a long heavy smoking history and underlying COPD. She tells me she uses an inhaler at home; however, she does not recall the name. The patient had developed atrial fibrillation and a rapid ventricular response during hospitalization and is followed by cardiology at this time. Her echocardiogram reveals evidence of adequate LV function and moderate pulmonary hypertension. She denies a history of fever or chills. No cough, no expectoration, no hemoptysis. PAST MEDICAL HISTORY: COPD, hypertension, atrial fibrillation, acute kidney injury upon presentation. FAMILY HISTORY: Noncontributory. SOCIAL HISTORY: Long heavy smoking history and continues to smoke until present. MEDICATIONS: 1. Nebulized albuterol/ipratropium. 2. Norvasc. 3. Amlodipine. 4. BuSpar. 5. Zyrtec. 6. Ciprofloxacin. 7. Diltiazem IV. 8. Benadryl. ALLERGIES: NONE KNOWN TO MEDICATIONS. REVIEW OF SYSTEMS: A 12-point review of systems as per HPI and past history, otherwise negative. PHYSICAL EXAMINATION: VITAL SIGNS: Temperature 98, pulse 90, respirations 20, blood pressure 130/60, oxygen saturation 94% on O2 nasal cannula. HEENT: Unremarkable. Eyes without icterus. NECK: Without adenopathy or thyroid enlargement. CHEST: Increased PA diameter noted. No dullness to percussion. Clear to auscultation. CARDIOVASCULAR: Irregularity noted. ABDOMEN: Lax. Bowel sounds audible. EXTREMITIES: No clubbing, cyanosis or edema. LABORATORY DATA: White count 9.7, hemoglobin 9.1, hematocrit 26, platelets 145,000. INR 1.3. Sodium 143, potassium 3.4, BUN 35, creatinine 1.4. A chest x-ray on 06/14/2018 with changes suggestive of congestive heart failure. Small bibasilar effusions noted as well. IMPRESSION: 1. Chronic obstructive pulmonary disease. 2. Atrial fibrillation. 3. Acute kidney injury. 4. Normocytic anemia. 5. Tobacco abuse. PLAN: The patient will be maintained on oxygen therapy as needed. Home O2 will be given if needed. Bronchodilators continued. Cardiology is following for underlying atrial fibrillation. Once stable, she will be discharged and followed as an outpatient. I do thank you for asking me to partake in Ms. Miller's care. Natalie Estrada MD WWW/lizz , 05:54 PM , 06:03 PM
[2018-06-16] MEDS: Insulin NovoLOG Aspart Correctional Sugar Inj SQ SCH ×4 (01:08→18:09)
[2018-06-16 05:22] LABS: Hematocrit 26.3 % (35.0-46.0); Mean Corpuscular HGB Conc 34.4 % (32.0-36.0); Mean Corpuscular Hemoglobin 31.1 pg (27.0-34.0); Mean Corpuscular Volume 90.4 fL (80.0-100.0); Mean Platelet Volume 8.7 fL (7.0-11.0); Platelet Count 160 th/mm3 (150-450); Red Blood Count 2.91 mil/mm3 (4.00-5.30); Red Cell Distribution Width 15.1 % (11.6-17.2); White Blood Count 10.6 th/mm3 (4.0-11.0)
[2018-06-16 05:50] LABS: Carbon Dioxide 19.9 meq/L (21.0-32.0); Magnesium 1.6 mg/dL (1.5-2.5); Potassium 4.5 meq/L (3.5-5.1)
[2018-06-16] MEDS: Chlorhexidine Gluconate 2% 1 Pack (2 Cloths) TOPICAL SCH (06:45)
[2018-06-16] MEDS: Metoprolol Tartrate 100 MG Tablet PO SCH ×2 (06:51→18:09)
[2018-06-16] MEDS: Sertraline 50 MG Tablet PO SCH (09:03)
[2018-06-16] MEDS: amLODIPine 5 MG Tablet PO SCH (09:03)
[2018-06-16] MEDS: Senna/Docusate Sodium 8.6/50 MG Tablet PO SCH ×2 (09:03→21:38)
[2018-06-16] MEDS: Pantoprazole Inj 40 MG Vial IV.PUSH SCH (09:04)
--- NOTE | 2018-06-16 10:41 | P.PNIM ---
Subjective Interval history: Patient seen and evaluated on follow-up for atrial fibrillation as well as hyperkalemia which has subsequently resolved Patient denies active chest pain Patient does report that she feels congestion with her nose and slight sore throat Patient denies dizziness or palpitations Patient has not been out of bed this morning at but says that she will be working with physical therapy Patient denies nausea vomiting no BRBPR noted Cardiology would like to continue AC for the patient Physical Exam Vital signs: Vital Signs 06/15/18 11:00 06/15/18 11:02 06/15/18 12:00 Temperature Pulse Rate 108 H 108 H 110 H Respiratory Rate 27 H 25 H 20 Blood Pressure 121/63 Pulse Oximetry 99 94 L 98 06/15/18 12:01 06/15/18 13:00 06/15/18 13:01 Temperature 98.7 F Pulse Rate 120 H 120 H 122 H Respiratory Rate 20 30 H 27 H Blood Pressure 130/60 120/55 L Pulse Oximetry 98 96 95 06/15/18 14:00 06/15/18 14:01 06/15/18 15:00 Temperature Pulse Rate 119 H 118 H 119 H Respiratory Rate 26 H 19 21 Blood Pressure 109/58 L Pulse Oximetry 95 97 98 06/15/18 15:01 06/15/18 16:00 06/15/18 16:01 Temperature 98.5 F Pulse Rate 118 H 110 H 109 H Respiratory Rate 18 26 H 25 H Blood Pressure 109/64 134/63 Pulse Oximetry 97 96 96 06/15/18 17:00 06/15/18 17:01 06/15/18 18:00 Temperature Pulse Rate 105 H 107 H 104 H Respiratory Rate 29 H 20 25 H Blood Pressure 134/64 Pulse Oximetry 88 L 94 L 97 06/15/18 18:01 06/15/18 19:00 06/15/18 20:00 Temperature 97.9 F Pulse Rate 104 H 108 H 106 H Respiratory Rate 26 H 24 24 Blood Pressure 146/72 H 151/72 H 133/59 L Pulse Oximetry 98 90 L 95 06/15/18 20:48 06/15/18 21:00 06/15/18 22:00 Temperature Pulse Rate 109 H 106 H Respiratory Rate 22 19 Blood Pressure 149/62 H 146/68 H Pulse Oximetry 98 92 L 94 L 06/15/18 23:00 06/16/18 00:00 06/16/18 00:57 Temperature 97.9 F Pulse Rate 65 66 95 H Respiratory Rate 18 24 26 H Blood Pressure 147/68 H 165/68 H Pulse Oximetry 88 L 91 L 06/16/18 01:00 06/16/18 02:00 06/16/18 03:00 Temperature Pulse Rate 103 H 65 68 Respiratory Rate 39 H 32 H 26 H Blood Pressure 155/70 H 152/68 H 155/67 H Pulse Oximetry 89 L 91 L 95 06/16/18 04:00 06/16/18 05:00 06/16/18 06:00 Temperature 97.9 F Pulse Rate 66 68 73 Respiratory Rate 18 24 27 H Blood Pressure 170/72 H 176/77 H 169/76 H Pulse Oximetry 97 92 L 98 06/16/18 07:00 06/16/18 07:01 06/16/18 07:18 Temperature Pulse Rate 72 69 65 Respiratory Rate 29 H 28 H 37 H Blood Pressure 178/75 H 161/70 H Pulse Oximetry 97 98 100 06/16/18 08:00 06/16/18 08:01 06/16/18 09:00 Temperature 98.2 F Pulse Rate 68 69 66 Respiratory Rate 28 H 23 27 H Blood Pressure 171/72 H Pulse Oximetry 91 L 96 98 06/16/18 09:01 Temperature Pulse Rate 70 Respiratory Rate 35 H Blood Pressure 174/75 H Pulse Oximetry 98 Intake & Output 06/15/18 06/16/18 06/16/18 18:59 06:59 18:59 Intake Total 520 / 520 600 / 600 Output Total 450 / 450 300 / 300 Balance 70 / 70 300 / 300 Intake: IV 100 / 100 Magnesium Sulfate 1 gm/D5W 100 100 / 100 ml Premix 100 ML @ 100 mls/hr IV.SIG ONCE ONE Rx#:[id number] Oral 420 / 420 600 / 600 Output: Urine 300 / 300 Urine Amount (Catheter) 450 / 450 Indwelling Urethral Catheter 450 / 450 Other: Date of Last Bowel Movement 06/14/18 06/14/18 06/14/18 # Bowel Movements 0 0 General: No acute distress HEENT: EOMI, PERRLA, cough Cardiovascular: Regular rate and rhythm. Does not appear irregular at this moment. Respiratory: Relatively clear on auscultation Gastroenterology: Soft, nontender, nondistended, no guarding or rebound appreciated Extremity: No calf tenderness, no lower extremity edema, bilateral 2+ dorsalis pedis pulse Neurology: No facial droop, no slurred speech. Cranial nerves II through XII grossly intact on my exam this morning Urinary Catheter Management Indwelling Urethral Catheter: Cath placed during this visit: yes, but has since been removed by the nurse Reason for continuing: Hourly intake/output Insertion date: 06/14/18 Insertion time: 10:30 Removal date: 06/12/18 Removal time: 13:55 Female External: Cath placed during this visit: no Results Labs CBC & Chem 7: 06/16/18 04:57 06/16/18 04:57 Labs: Microbiology 06/11/18 09:47 Blood - Peripheral Aerobic Blood Culture - Preliminary No growth in 4 days 06/11/18 09:47 Blood - Peripheral Anaerobic Blood Culture - Preliminary No growth in 4 days 06/11/18 09:47 Blood - Peripheral Aerobic Blood Culture - Preliminary No growth in 4 days 06/11/18 09:47 Blood - Peripheral Anaerobic Blood Culture - Preliminary No growth in 4 days Assessment and Plan (1) Atrial fibrillation with RVR: Code(s): I48.91 - Unspecified atrial fibrillation Status: Acute (2) Elevated troponin: Code(s): R74.8 - Abnormal levels of other serum enzymes Status: Acute (3) Acute renal failure: Code(s): N17.9 - Acute kidney failure, unspecified Status: Acute (4) Acute hyperkalemia: Code(s): E87.5 - Hyperkalemia Status: Acute (5) COPD (chronic obstructive pulmonary disease): Code(s): J44.9 - Chronic obstructive pulmonary disease, unspecified Status: Chronic (6) Tobacco abuse: Code(s): Z72.0 - Tobacco use Status: Chronic Plan Patient is a 77-year-old female with long-standing smoking history presenting with new onset hyperkalemia and weakness requiring emergent hemodialysis with hospital course complicated by development of atrial fibrillation requiring BB for rate control with occult positive stools and heparin ggt discontinued. Nephrology: Acute renal failure, hyperkalemia (resolved), hypophosphatemia, acute kidney injury Suspect the patient's hyperkalemia may have been induced from acute renal failure in the setting of recent Bactrim use as an outpatient. Nephrology consulted recommendations to be appreciated. Currently signed off and stopped further HD sessions currently Cardiology: Essential hypertension, New Atrial fibrillation - Cardiology consulted and recommendations appreciated - Patient with previous occult positive stool when initially started on heparin ggt for a fib. patient now appears sinus and after discussion with cardiology they would like to begin a/c with noac. prior to starting, will request assistance from gastroenterology for further w/u of bleed prior to starting a NOAC in this situation. Hgb had dropped 10.4-->12/21 but suspect this could be more dilutional but platelet count on 06/14 and 06/16 are similar but hgb less on 06/16. No abdominal pain or BRBPR at this moment. - check reticulocyte counts - continue protonix 40mg qD - metoprolol 75mg BID for rate control - echo reviewed. no vegetations. Infectious disease: Diarrhea, E. coli UTI diarrhea resolved. Urine culture positive for E. coli. Cipro PO Nephrology: LUISA - continues to improve now 1.18 today. - avoid nephrotoxic medications Patient CARE: Smoking Approximately 15 minutes was spent counseling the patient is cessation techniques previously. CODE STATUS: Full code DVT prophylaxis: SCD Diet: Low potassium diet Progress Note: Quality VTE Deep Vein Thrombosis/Pulmonary Embolism Present on Admission: No _ (1) Acute renal failure Qualifiers: Acute renal failure type: unspecified Qualified Code(s): N17.9 - Acute kidney failure, unspecified (2) COPD (chronic obstructive pulmonary disease) Qualifiers: COPD type: unspecified COPD Chronic bronchitis type: Emphysema type: Qualified Code(s): J44.9 - Chronic obstructive pulmonary disease, unspecified
--- NOTE | 2018-06-16 11:01 | XR ---
EXAM DATE: 06/16/2018 10:51 AM EST AGE/SEX: 77 years / Female INDICATIONS: Shortness of breath. CLINICAL DATA: This is the patient's subsequent encounter. Patient reports that signs and symptoms h ave been present for 4 - 6 days and indicates a pain score of 0/10. MEDICAL/SURGICAL HISTORY: Chronic obstructive pulmonary disease. Hypertension. Acute kidney in jury. Allergic rhinitis. Anxiety, Hyperkalemia, Leukocytosis, Normocytic anemia None. COMPARISON: C, CHEST 1V SINGLE AP, 06/14/2018. . FINDINGS: The heart size appears within normal limits although there is silhouetting the right hemidiaphragm. T here is diffuse increased interstitial markings. There is further increased density at the bases bein g worse on the right. There is blunting of the costophrenic angles. CONCLUSION: Diffuse increased interstitial markings related to underlying chronic interstitial disease versus mor e acute diffuse pulmonary edema. Bilateral pleural effusions being worse on the right. Increased density at the bases related to the effusions. Some degree of superimposed atelectasis or c onsolidation especially at the right base can be considered. Electronically signed by: Chris Lowe MD Board Certified Radiologist 06/16/2018 11:00 AM EST
[2018-06-16] MEDS ORDERED: guaiFENesin 600 MG ER Tablet PO PRN (11:12)
[2018-06-16] MEDS: Heparin - SQ 10,000 UNITS/ML Vial SQ SCH (11:59)
--- NOTE | 2018-06-16 12:13 | P.PNCA ---
Subjective Interval history: Patient denies any CP, pressure, palpitations, dizziness or edema. She does complain of SOB. Medications and Allergies Allergies Allergy/AdvReac Type Severity Reaction Status Date / Time No Known Allergies Allergy Verified 06/11/18 09:25 Home Medications Medication Instructions Recorded Confirmed Type amlodipine 10 mg PO DAILY 06/11/18 06/11/18 History buspirone 10 mg PO BID 06/11/18 06/11/18 History cetirizine 10 mg PO DAILY 06/11/18 06/11/18 History lisinopril 40 mg PO DAILY 06/11/18 06/11/18 History metoprolol succinate 50 mg PO BID 06/11/18 06/11/18 History sertraline 50 mg PO DAILY 06/11/18 06/11/18 History sulfamethoxazole-trimethoprim 1 tab PO Q12H 06/11/18 06/11/18 History Active Medications: Active Medications Acetaminophen (Tylenol) 650 mg PO UNSCH PRN PRN Reason: SEE LABEL COMMENTS Acetaminophen (Tylenol) 650 mg PO Q6H PRN PRN Reason: PAIN 1-10 AND/OR FEVER >101F Last Admin: 06/13/18 01:42 Dose: 650 mg Al Hydroxide/Mg Hydroxide (Milk Of Carmelita Parada) 30 ml PO Q12H PRN PRN Reason: Mild Constipation Albuterol (Albuterol Neb (Prn)) 2.5 mg NEB Q2HR NEB PRN PRN Reason: SHORTNESS OF BREATH/WHEEZING Last Admin: 06/16/18 00:57 Dose: 2.5 mg Amlodipine Besylate (Norvasc) 5 mg PO DAILY [facility] Last Admin: 06/16/18 09:03 Dose: 5 mg Bisacodyl (Dulcolax Supp) 10 mg RECTAL DAILY PRN PRN Reason: SEVERE CONSITIPATION Buspirone HCl (Buspar) 10 mg PO BID [facility] Last Admin: 06/16/18 09:03 Dose: 10 mg Cetirizine HCl (Zyrtec) 10 mg PO DAILY [facility] Last Admin: 06/16/18 09:03 Dose: 10 mg Chlorhexidine Gluconate (Chlorhexidine 2% Cloth) 3 pack TOPICAL DAILY@0400 [facility] Stop: 06/17/18 03:59 Last Admin: 06/16/18 06:45 Dose: Not Given Chlorhexidine Gluconate (Chlorhexidine 2% Cloth) 3 pack TOPICAL DAILY@0400 PRN PRN Reason: Extra cloth needed Stop: 06/17/18 03:59 Ciprofloxacin HCl (Cipro) 500 mg PO Q18H [facility] Last Admin: 06/15/18 23:28 Dose: 500 mg Dextrose (D50w Vial) 50 ml IV.PUSH UNSCH PRN PRN Reason: PER HYPOGLYCEMIA PROTOCOL Diphenhydramine HCl (Benadryl) 25 mg PO UNSCH PRN PRN Reason: SEE LABEL COMMENTS Fluticasone Propionate (Flonase Nasal [place]) 2 spray EACH NARE BID [facility] Gelatin (Gelfoam 12 Mm/7 Mm Topical) 1 foam TOPICAL PRN PRN PRN Reason: help stop bleeding from site Gentamicin Sulfate (Gentamicin Inj) 20 mg OTHER WITH DIALYSIS PRN PRN Reason: Dwell Gentamycin Lock Last Admin: 06/11/18 14:43 Dose: 20 mg Glucagon (Glucagon Inj) 1 mg OTHER PRN PRN PRN Reason: for Hypoglycemia Protocol Guaifenesin (Mucinex Er) 600 mg PO Q12H PRN PRN Reason: CONGESTION Last Admin: 06/16/18 11:59 Dose: 600 mg Heparin Sodium (Porcine) (Heparin Inj) 8,000 units OTHER WITH DIALYSIS PRN PRN Reason: for machine prime Heparin Sodium (Porcine) (Heparin Inj) 1,000 units OTHER WITH DIALYSIS PRN PRN Reason: Dwell Heparin to Fill Catheter Last Admin: 06/11/18 14:43 Dose: 1,000 units Heparin Sodium (Porcine) (Heparin Inj) 5,000 units SQ Q12H [facility] Last Admin: 06/16/18 11:59 Dose: 5,000 units Heparin Sodium (Porcine) (Heparin Inj) 0 units IV.FLUSH WITH DIALYSIS PRN PRN Reason: Flush each lumen Albumin Human (Flexbumin 25% Inj) 100 mls @ 60 mls/hr IV.SIG WITH DIALYSIS PRN PRN Reason: hypotension / volume replace Last Infusion: 06/11/18 15:39 Dose: Infused Sodium Chloride (Ns Inj) 1,000 mls @ 0 mls/hr OTHER .Q0M PRN PRN Reason: for prime and rinse back Sodium Chloride (Ns Inj) 1,000 mls @ 0 mls/hr IV.CONT .Q0M PRN PRN Reason: hypotension / volume replace Diltiazem HCl 125 mg/ Sodium (Chloride) 125 mls @ 5 mls/hr IV.CONT TITRATE PRN ; Protocol PRN Reason: Per Protocol Last Titration: 06/14/18 15:00 Dose: 0 mg/hr, 0 mls/hr Heparin Sodium/Dextrose (Heparin/D5w 25,000 U/250 Ml) 25,000 unit in 250 mls @ 6 mls/hr IV.CONT TITRATE PRN; Protocol PRN Reason: Per Protocol Last Titration: 06/14/18 11:00 Dose: Infused Insulin Aspart (Novolog Insulin Correctional Sugar Inj) 0 unit SQ Q6HR LIT; Protocol Last Admin: 06/16/18 11:59 Dose: Not Given Lactulose (Lactulose Liq) 30 ml PO DAILY PRN PRN Reason: SEVERE CONSITIPATION Mannitol (Mannitol Inj) 12.5 gm IV.PUSH UNSCH PRN PRN Reason: hypotension / volume replace Metoprolol Tartrate (Lopressor) 100 mg PO BID@0600,1800 [facility] Last Admin: 06/16/18 06:51 Dose: 100 mg Nicotine (Habitrol 14 Mg Patch.24 Hr) 1 patch T-DERMAL DAILY [facility] Last Admin: 06/16/18 09:03 Dose: 1 patch Nitroglycerin (Nitrostat Sl) 0.4 mg SL Q5M PRN PRN Reason: CHEST PAIN Ondansetron HCl (Zofran Inj) 4 mg IV.PUSH UNSCH PRN PRN Reason: NAUSEA OR VOMITING Ondansetron HCl (Zofran Inj) 4 mg IV.PUSH Q6H PRN PRN Reason: NAUSEA OR VOMITING Pantoprazole Sodium (Protonix Inj) 40 mg IV.PUSH DAILY [facility] Last Admin: 06/16/18 09:04 Dose: 40 mg Senna/Docusate Sodium (Meagan-Colace) 1 tab PO BID [facility] Last Admin: 06/16/18 09:03 Dose: 1 tab Sennosides (Senokot) 17.2 mg PO Q12H PRN PRN Reason: Moderate Constipation Sertraline HCl (Zoloft) 50 mg PO DAILY [facility] Last Admin: 06/16/18 09:03 Dose: 50 mg Sodium Chloride (Ns Flush) 5 ml IV.FLUSH PRN PRN PRN Reason: flush each lumen during HD Sodium Chloride (Ns Flush) 2 ml IV.FLUSH PRN PRN PRN Reason: FLUSH AFTER USING IV ACCESS Sodium Chloride (Ns Flush) 2 ml IV.FLUSH BID LIT Last Admin: 06/16/18 09:04 Dose: 2 ml Physical Exam Vital signs: Vital Signs 06/15/18 13:00 06/15/18 13:01 06/15/18 14:00 Temperature Pulse Rate 120 H 122 H 119 H Respiratory Rate 30 H 27 H 26 H Blood Pressure 120/55 L Pulse Oximetry 96 95 95 06/15/18 14:01 06/15/18 15:00 06/15/18 15:01 Temperature Pulse Rate 118 H 119 H 118 H Respiratory Rate 19 21 18 Blood Pressure 109/58 L 109/64 Pulse Oximetry 97 98 97 06/15/18 16:00 06/15/18 16:01 06/15/18 17:00 Temperature 98.5 F Pulse Rate 110 H 109 H 105 H Respiratory Rate 26 H 25 H 29 H Blood Pressure 134/63 Pulse Oximetry 96 96 88 L 06/15/18 17:01 06/15/18 18:00 06/15/18 18:01 Temperature Pulse Rate 107 H 104 H 104 H Respiratory Rate 20 25 H 26 H Blood Pressure 134/64 146/72 H Pulse Oximetry 94 L 97 98 06/15/18 19:00 06/15/18 20:00 06/15/18 20:48 Temperature 97.9 F Pulse Rate 108 H 106 H Respiratory Rate 24 24 Blood Pressure 151/72 H 133/59 L Pulse Oximetry 90 L 95 98 06/15/18 21:00 06/15/18 22:00 06/15/18 23:00 Temperature Pulse Rate 109 H 106 H 65 Respiratory Rate 22 19 18 Blood Pressure 149/62 H 146/68 H 147/68 H Pulse Oximetry 92 L 94 L 88 L 06/16/18 00:00 06/16/18 00:57 06/16/18 01:00 Temperature 97.9 F Pulse Rate 66 95 H 103 H Respiratory Rate 24 26 H 39 H Blood Pressure 165/68 H 155/70 H Pulse Oximetry 91 L 89 L 06/16/18 02:00 06/16/18 03:00 06/16/18 04:00 Temperature 97.9 F Pulse Rate 65 68 66 Respiratory Rate 32 H 26 H 18 Blood Pressure 152/68 H 155/67 H 170/72 H Pulse Oximetry 91 L 95 97 06/16/18 05:00 06/16/18 06:00 06/16/18 07:00 Temperature Pulse Rate 68 73 72 Respiratory Rate 24 27 H 29 H Blood Pressure 176/77 H 169/76 H Pulse Oximetry 92 L 98 97 06/16/18 07:01 06/16/18 07:18 06/16/18 08:00 Temperature Pulse Rate 69 65 68 Respiratory Rate 28 H 37 H 28 H Blood Pressure 178/75 H 161/70 H Pulse Oximetry 98 100 91 L 06/16/18 08:01 06/16/18 09:00 06/16/18 09:01 Temperature 98.2 F Pulse Rate 69 66 70 Respiratory Rate 23 27 H 35 H Blood Pressure 171/72 H 174/75 H Pulse Oximetry 96 98 98 06/16/18 10:00 Temperature Pulse Rate Respiratory Rate Blood Pressure Pulse Oximetry 98 Intake & Output 06/15/18 06/16/18 06/16/18 18:59 06:59 18:59 Intake Total 520 / 520 600 / 600 Output Total 450 / 450 300 / 300 Balance 70 / 70 300 / 300 Intake: IV 100 / 100 Magnesium Sulfate 1 gm/D5W 100 100 / 100 ml Premix 100 ML @ 100 mls/hr IV.SIG ONCE ONE Rx#:[id number] Oral 420 / 420 600 / 600 Output: Urine 300 / 300 Urine Amount (Catheter) 450 / 450 Indwelling Urethral Catheter 450 / 450 Other: Date of Last Bowel Movement 06/14/18 06/14/18 06/14/18 # Bowel Movements 0 0 - Constitutional no acute distress - Routine HEENT Exam Head: Present: normocephalic Eye: Present: PERRL ENT: Present: mucous membranes moist - Routine Neck Exam Present: supple - Routine Respiratory Exam Present: decreased breath sounds - Routine Cardiovascular Exam Present: S1, S2 Comments: SR - Routine Abdominal Exam Present: normoactive bowel sounds - Routine Extremities Exam Present: full ROM, pulses intact, normal capillary refill. Absent: cyanosis, clubbing, edema - Routine Skin Exam Present: intact - Routine Neurological Exam Present: oriented X3 - Detailed Neurological Exam: Coma Scale Eye Opening: Spontaneous Verbal Response: Oriented Motor Response: Obey commands [place] Coma Scale Total: 15 - Routine Psychiatric Exam Present: normal affect - Urinary Catheter Management Indwelling Urethral Catheter Cath placed during this visit: yes, but has since been removed by the nurse Reason for continuing: Hourly intake/output Insertion date: 06/14/18 Insertion time: 10:30 Removal date: 06/12/18 Removal time: 13:55 Female External Cath placed during this visit: no Results 06/16/18 04:57 06/16/18 04:57 CBC 06/15/18 06/16/18 Range/Units 04:50 04:57 WBC 9.7 10.6 (4.0-11.0) th/mm3 RBC 2.94 L 2.91 L (4.00-5.30) mil/mm3 Hgb 9.1 L 9.0 L (11.6-15.3) gm/dL Hct 26.9 L 26.3 L (35.0-46.0) % Plt Count 145 L 160 (150-450) th/mm3 Comprehensive Metabolic Panel 06/15/18 06/16/18 Range/Units 04:50 04:57 Sodium 143 140 (136-145) meq/L Potassium 3.4 L 4.5 D (3.5-5.1) meq/L Chloride 110 H 109 H (98-107) meq/L Carbon Dioxide 21.8 19.9 L (21.0-32.0) meq/L BUN 35 H 31 H (7-18) mg/dL Creatinine 1.44 H 1.18 H (0.50-1.00) mg/dL Calcium 7.7 L 8.0 L (8.5-10.1) mg/dL Intake and Output 06/15/18 06/16/18 06/16/18 22:59 06:59 14:59 Intake Total 420 / 420 600 / 600 Output Total 450 / 450 300 / 300 Balance -30 / -30 300 / 300 Intake: Oral 420 / 420 600 / 600 Output: Urine 300 / 300 Urine Amount (Catheter) 450 / 450 Indwelling Urethral Catheter 450 / 450 Other: Date of Last Bowel Movement 06/14/18 06/14/18 06/14/18 # Bowel Movements 0 0 - Imaging and Cardiology Imaging: Impressions Chest X-Ray 06/16/18 00:00 CONCLUSION: Diffuse increased interstitial markings related to underlying chronic interstitial disease versus more acute diffuse pulmonary edema. Bilateral pleural effusions being worse on the right. Increased density at the bases related to the effusions. Some degree of superimposed atelectasis or consolidation especially at the right base can be considered. Assessment and Plan - Assessment (1) Atrial fibrillation with RVR Code(s): I48.91 - Unspecified atrial fibrillation Status: Acute (2) Elevated troponin Code(s): R74.8 - Abnormal levels of other serum enzymes Status: Acute (3) Acute renal failure Code(s): N17.9 - Acute kidney failure, unspecified Status: Acute (4) Acute hyperkalemia Code(s): E87.5 - Hyperkalemia Status: Acute (5) COPD (chronic obstructive pulmonary disease) Code(s): J44.9 - Chronic obstructive pulmonary disease, unspecified Status: Chronic (6) Tobacco abuse Code(s): Z72.0 - Tobacco use Status: Chronic - Plan She continues to complain of SOB, pulmonary evaluation and treatment in progress. She has converted to SR at this time, continue metoprolol. Continue to increase her activity as she tolerates. Continue anticoagulation with heparin, switch to NOAC. We will continue to monitor the patient during her hospitalization. The patient was seen and evaluated by Dr. Saleh who participated in care, management and decision making. - Attending Attestation Patient seen and examined. I reviewed and agree with the evaluation and plan as presented. No angina. She converted to SR, continue metoprolol. Continue anticoagulation, switch to NOAC. Increase activity, PT. (3) Acute renal failure Qualifiers: Acute renal failure type: unspecified Qualified Code(s): N17.9 - Acute kidney failure, unspecified (5) COPD (chronic obstructive pulmonary disease) Qualifiers: COPD type: unspecified COPD Qualified Code(s): J44.9 - Chronic obstructive pulmonary disease, unspecified
[2018-06-16] MEDS ORDERED: Sod Chloride 0.9% Inj 1,000 ML IV.SIG ONE (15:15)
[2018-06-16] MEDS: Ciprofloxacin 500 MG Tablet PO SCH (15:34)
[2018-06-17] MEDS: Heparin - SQ 10,000 UNITS/ML Vial SQ SCH ×2 (00:03→11:41)
[2018-06-17] MEDS: Sodium Chloride 0.65% Nasal Spray 45 ML Bottle EACH NARE SCH ×5 (00:03→21:12)
[2018-06-17] MEDS: Metoprolol Tartrate 100 MG Tablet PO SCH ×2 (06:03→17:53)
[2018-06-17 06:27] LABS: Reticulocyte Percent 2.6 % (0.4-3.0)
[2018-06-17 06:28] LABS: Hematocrit 29.3 % (35.0-46.0); Hemoglobin 10.4 gm/dL (11.6-15.3); Mean Corpuscular HGB Conc 35.5 % (32.0-36.0); Mean Corpuscular Hemoglobin 32.5 pg (27.0-34.0); Mean Corpuscular Volume 91.4 fL (80.0-100.0); Mean Platelet Volume 8.3 fL (7.0-11.0); Platelet Count 199 th/mm3 (150-450); Red Cell Distribution Width 14.8 % (11.6-17.2); White Blood Count 8.8 th/mm3 (4.0-11.0)
[2018-06-17 06:34] LABS: Prothrombin Time 10.6 sec (9.8-11.6)
[2018-06-17 06:58] LABS: Calcium 7.8 mg/dL (8.5-10.1); Carbon Dioxide 21.6 meq/L (21.0-32.0); Magnesium 1.5 mg/dL (1.5-2.5); Potassium 4.1 meq/L (3.5-5.1)
[2018-06-17] MEDS: Pantoprazole Inj 40 MG Vial IV.PUSH SCH (09:17)
[2018-06-17] MEDS: Sertraline 50 MG Tablet PO SCH (09:18)
[2018-06-17] MEDS: amLODIPine 5 MG Tablet PO SCH (09:18)
[2018-06-17] MEDS: Senna/Docusate Sodium 8.6/50 MG Tablet PO SCH ×2 (09:18→21:08)
--- NOTE | 2018-06-17 10:04 | P.DCO ---
Diagnosis (1) Atrial fibrillation with RVR: Status: Acute (2) Elevated troponin: Status: Acute (3) Acute renal failure: Status: Acute (4) Acute hyperkalemia: Status: Acute (5) COPD (chronic obstructive pulmonary disease): Status: Chronic (6) Tobacco abuse: Status: Chronic Physical Therapy Order: Evaluate and treat, Improve ambulation and Strength and gait training Home Health Nursing Order: Medical education, Signs/symptoms of disease process and Nursing assessment with vital signs Case Management Consult Case Management Consult-Home Health: Yes I have seen patient Vikki Miller on 06/17/18. My clinical findings support the need for the requested home health care services because: Limited mobility due to disease progression, Deconditioned with increased weakness, Limited ability to care for self, Need for psychosocial assistance, Impaired cognition/judgement, High risk of falls, Infection with risk of complications and Injectable medication education/administration I certify that my clinical findings support that this patient is homebound because: _ (1) Acute renal failure Qualifiers: Acute renal failure type: unspecified Qualified Code(s): N17.9 - Acute kidney failure, unspecified (2) COPD (chronic obstructive pulmonary disease) Qualifiers: COPD type: unspecified COPD Chronic bronchitis type: Emphysema type: Qualified Code(s): J44.9 - Chronic obstructive pulmonary disease, unspecified
--- NOTE | 2018-06-17 10:18 | P.PNIM ---
Subjective Interval history: Follow up for Afib, LUISA. Patient is doing well. She is on 2-3 L of O2 via NC. No fever, chills. Sitting in her chair. Physical Exam Vital signs: Vital Signs 06/16/18 10:58 06/16/18 11:00 06/16/18 12:00 Temperature Pulse Rate 84 73 69 Respiratory Rate 26 H 25 H 24 Blood Pressure 146/65 H Pulse Oximetry 92 L 93 L 92 L Pulse Oximetry [Resting on Room Air] Pulse Oximetry [Resting with Oxygen] 06/16/18 12:01 06/16/18 13:00 06/16/18 14:00 Temperature Pulse Rate 69 67 68 Respiratory Rate 22 21 23 Blood Pressure 134/64 158/68 H 144/67 H Pulse Oximetry 92 L 94 L 94 L Pulse Oximetry [Resting on Room Air] Pulse Oximetry [Resting with Oxygen] 06/16/18 15:00 06/16/18 16:00 06/16/18 16:30 Temperature 97.8 F Pulse Rate 74 71 Respiratory Rate 30 H 23 Blood Pressure 144/64 H 167/72 H Pulse Oximetry 89 L 90 L Pulse Oximetry [Resting on Room Air] 88 L Pulse Oximetry [Resting with Oxygen] 94 L 06/16/18 17:00 06/16/18 18:00 06/16/18 20:00 Temperature 97.4 F L Pulse Rate 77 70 95 H Respiratory Rate 33 H 18 17 Blood Pressure 176/77 H 169/72 H 123/57 L Pulse Oximetry 93 L 94 L 92 L Pulse Oximetry [Resting on Room Air] Pulse Oximetry [Resting with Oxygen] 06/16/18 20:36 06/16/18 22:00 06/16/18 23:58 Temperature Pulse Rate 127 H 63 Respiratory Rate Blood Pressure Pulse Oximetry 98 Pulse Oximetry [Resting on Room Air] Pulse Oximetry [Resting with Oxygen] 06/17/18 00:00 06/17/18 04:00 Temperature 98 F 98 F Pulse Rate 75 109 H Respiratory Rate 16 16 Blood Pressure 173/75 H 155/82 H Pulse Oximetry 96 98 Pulse Oximetry [Resting on Room Air] Pulse Oximetry [Resting with Oxygen] Intake & Output 06/16/18 06/17/18 06/17/18 18:59 06:59 18:59 Intake Total 1120 / 1120 Output Total 750 / 750 1150 / 1150 Balance -750 / -750 -30 / -30 Intake: IV 1000 / 1000 NS Inj 1,000 ML @ 75 mls/hr IV. 1000 / 1000 SIG .[id number] ONE Rx#:[id number] Oral 120 / 120 Output: Urine 400 / 400 Urine Amount (Catheter) 750 / 750 750 / 750 Indwelling Urethral Catheter 750 / 750 750 / 750 Other: Date of Last Bowel Movement 06/16/18 # Bowel Movements 1 Narrative: GENERAL: Alert, oriented x3, NAD. SKIN: Warm and dry. HEAD: Normocephalic. EYES: No scleral icterus. No injection or drainage. NECK: Supple, trachea midline. No JVD or lymphadenopathy. CARDIOVASCULAR: Regular rate and rhythm without murmurs, gallops, or rubs. RESPIRATORY: Poor air movements. No appreciable wheezing. No accessory muscle use. GASTROINTESTINAL: Abdomen soft, non-tender, nondistended. MUSCULOSKELETAL: No cyanosis, or edema. BACK: Nontender without obvious deformity. No CVA tenderness. Urinary Catheter Management Indwelling Urethral Catheter: Cath placed during this visit: yes, but has since been removed by the nurse Reason for continuing: Hourly intake/output Insertion date: 06/14/18 Insertion time: 10:30 Removal date: 06/12/18 Removal time: 13:55 Female External: Cath placed during this visit: no Results Labs CBC & Chem 7: 06/17/18 06:00 06/17/18 06:00 Labs: Microbiology 06/11/18 09:47 Blood - Peripheral Aerobic Blood Culture - Final No growth in 5 days 06/11/18 09:47 Blood - Peripheral Anaerobic Blood Culture - Final No growth in 5 days 06/11/18 09:47 Blood - Peripheral Aerobic Blood Culture - Final No growth in 5 days 06/11/18 09:47 Blood - Peripheral Anaerobic Blood Culture - Final No growth in 5 days Imaging Imaging: Impressions Chest X-Ray 06/16/18 00:00 CONCLUSION: Diffuse increased interstitial markings related to underlying chronic interstitial disease versus more acute diffuse pulmonary edema. Bilateral pleural effusions being worse on the right. Increased density at the bases related to the effusions. Some degree of superimposed atelectasis or consolidation especially at the right base can be considered. Assessment and Plan (1) Atrial fibrillation with RVR: Code(s): I48.91 - Unspecified atrial fibrillation Status: Acute (2) Elevated troponin: Code(s): R74.8 - Abnormal levels of other serum enzymes Status: Acute (3) Acute renal failure: Code(s): N17.9 - Acute kidney failure, unspecified Status: Acute (4) Acute hyperkalemia: Code(s): E87.5 - Hyperkalemia Status: Acute (5) COPD (chronic obstructive pulmonary disease): Code(s): J44.9 - Chronic obstructive pulmonary disease, unspecified Status: Chronic (6) Tobacco abuse: Code(s): Z72.0 - Tobacco use Status: Chronic Plan Patient is a 77-year-old female with long-standing smoking history presenting with new onset hyperkalemia and weakness requiring emergent hemodialysis with hospital course complicated by development of atrial fibrillation requiring BB for rate control with occult positive stools and heparin drip discontinued. Acute kidney injury Hyperkalemia Hypomagnesemia -Patient required transient dialysis. Currently off dialysis. -Creatinine 1.18 --> 1.37 today. We will replace magnesium with 2 g of magnesium sulfate IV. Atrial fibrillation, new onset Cardiology is following. Patient is currently on metoprolol 100 mg twice daily. After GI evaluation, will consider apixaban 2.5 mg twice daily for stroke prevention Probable GI bleed Currently off heparin drip. Continue Protonix 40 mg daily. GI evaluation pending. She had colonoscopy in January 2017. Urinary tract infection with E. coli Currently on ciprofloxacin p.o. PT is recommending SNF. Patient lives by herself and she would rather go home. However, son works and cannot be there for her all the time. Discussed with CM. Full code. SCDs. Probably Apixaban after GI evaluation. Progress Note: Quality VTE Deep Vein Thrombosis/Pulmonary Embolism Present on Admission: No _ (1) Acute renal failure Qualifiers: Acute renal failure type: unspecified Qualified Code(s): N17.9 - Acute kidney failure, unspecified (2) COPD (chronic obstructive pulmonary disease) Qualifiers: COPD type: unspecified COPD Chronic bronchitis type: Emphysema type: Qualified Code(s): J44.9 - Chronic obstructive pulmonary disease, unspecified
[2018-06-17] MEDS: Ciprofloxacin 500 MG Tablet PO SCH (11:41)
[2018-06-17] MEDS: Mag Sulf 1 gm/100 ml Premix 100 ML IV.SIG SCH ×2 (11:42→12:51)
--- NOTE | 2018-06-17 13:26 | P.DIET ---
Nutritional Evaluation Type of nutrition evaluation: initial (BMI screen) Subjective Subjective Comments: Pt reports poor appetite but says she has never really had a big appetite. She reports that her UBW is around 90lbs. States that she has lost weight recently however per documentation pt is currently 93lbs. She states that during her last visit she remembers being 78lbs which indicates there may be questionable accuracy in her recorded weight during this stay. Objective - Diagnosis hyperkalemia - Objective Body Mass Index: 18.3 [place] body weight: 45 kg % IBW: 93 Body Weight Used for Calculations: Actual Energy Needs - Lower Range (kCal/kg): 30 Energy Needs - Upper Range (kCal/kg): 35 Lower Limit kCal/kg (kCals): 1,260 Upper Limit kCal/kg (kCals): 1,470 Lower Limit Protein Factor (Grams per Kg): 0.6 Upper Limit Protein Factor (Grams per Kg): 0.8 Lower Protein Needs (Protein): 25 Upper Protein Needs (Protein): 34 Dietitian Reviewed in Medical Record: Current diet, Curent medications, Intake & Output, Labs, Medical history Diet Order: Renal/cardiac/diabetic Oral Diet Intake Amount: Poor <50% Objective Comments: PMH; COPD, depression, anxiety, htn Labs; K 4.1( trending down from above 8), BUN 29, Cr 1.37, GFR 37 Medications;lactulose Assessment Assessment: BMI Screen; Pt picked up 2/2 low BMI of 18. Pt presented to ED with acute renal failure and need for emergent HD. She is currently at nutritional risk r/t underweight BMI and poor PO intake. Pt is ordered for cardiac/renal/diabetic diet with 25-50% PO intake, will recommend to D/C diabetic diet restriction to offer pt more options with meals, as blood sugars are stable at this time. Will send pt Suplena supplement TID in efforts to support PO intake and minimize further weight loss. Each can of Suplena will provide 425kcal and 10g protein. Labs and medications reviewed, will continue to follow. Recommendations: 1. Discontinue diabetic diet restriction 2. Suplena nutrition supplement TID 3. Monitor weight Dietitian to Monitor: Lab values, Glucose level, Supplement acceptance, Intake & Output, Weight change, PO Intake, Medical course
--- NOTE | 2018-06-17 13:56 | P.PNCA ---
Subjective Interval history: She denies any CP, pressure, palpitations, or edema. She does complain of mild SOB but states it is improving. Medications and Allergies Allergies Allergy/AdvReac Type Severity Reaction Status Date / Time No Known Allergies Allergy Verified 06/11/18 09:25 Home Medications Medication Instructions Recorded Confirmed Type amlodipine 10 mg PO DAILY 06/11/18 06/11/18 History buspirone 10 mg PO BID 06/11/18 06/11/18 History cetirizine 10 mg PO DAILY 06/11/18 06/11/18 History lisinopril 40 mg PO DAILY 06/11/18 06/11/18 History metoprolol succinate 50 mg PO BID 06/11/18 06/11/18 History sertraline 50 mg PO DAILY 06/11/18 06/11/18 History sulfamethoxazole-trimethoprim 1 tab PO Q12H 06/11/18 06/11/18 History Active Medications: Active Medications Acetaminophen (Tylenol) 650 mg PO Q6H PRN PRN Reason: PAIN 1-10 AND/OR FEVER >101F Last Admin: 06/13/18 01:42 Dose: 650 mg Al Hydroxide/Mg Hydroxide (Milk Of [employer]) 30 ml PO Q12H PRN PRN Reason: Mild Constipation Albuterol (Albuterol Neb (Prn)) 2.5 mg NEB Q2HR NEB PRN PRN Reason: SHORTNESS OF BREATH/WHEEZING Last Admin: 06/16/18 00:57 Dose: 2.5 mg Amlodipine Besylate (Norvasc) 5 mg PO DAILY [facility] Last Admin: 06/17/18 09:18 Dose: 5 mg Bisacodyl (Dulcolax Supp) 10 mg RECTAL DAILY PRN PRN Reason: SEVERE CONSITIPATION Buspirone HCl (Buspar) 10 mg PO BID [facility] Last Admin: 06/17/18 09:18 Dose: 10 mg Cetirizine HCl (Zyrtec) 10 mg PO DAILY [facility] Last Admin: 06/17/18 09:18 Dose: 10 mg Ciprofloxacin HCl (Cipro) 500 mg PO Q18H [facility] Last Admin: 06/17/18 11:41 Dose: 500 mg Dextrose (D50w Vial) 50 ml IV.PUSH UNSCH PRN PRN Reason: PER HYPOGLYCEMIA PROTOCOL Glucagon (Glucagon Inj) 1 mg OTHER PRN PRN PRN Reason: for Hypoglycemia Protocol Guaifenesin (Mucinex Er) 600 mg PO Q12H PRN PRN Reason: CONGESTION Last Admin: 06/16/18 11:59 Dose: 600 mg Heparin Sodium (Porcine) (Heparin Inj) 5,000 units SQ Q12H [facility] Last Admin: 06/17/18 11:41 Dose: 5,000 units Heparin Sodium (Porcine) (Heparin Inj) 0 units IV.FLUSH WITH DIALYSIS PRN PRN Reason: Flush each lumen Diltiazem HCl 125 mg/ Sodium (Chloride) 125 mls @ 5 mls/hr IV.CONT TITRATE PRN ; Protocol PRN Reason: Per Protocol Last Titration: 06/14/18 15:00 Dose: 0 mg/hr, 0 mls/hr Heparin Sodium/Dextrose (Heparin/D5w 25,000 U/250 Ml) 25,000 unit in 250 mls @ 6 mls/hr IV.CONT TITRATE PRN; Protocol PRN Reason: Per Protocol Last Titration: 06/14/18 11:00 Dose: Infused Lactulose (Lactulose Liq) 30 ml PO DAILY PRN PRN Reason: SEVERE CONSITIPATION Metoprolol Tartrate (Lopressor) 100 mg PO BID@0600,1800 [facility] Last Admin: 06/17/18 06:03 Dose: 100 mg Nicotine (Habitrol 14 Mg Patch.24 Hr) 1 patch T-DERMAL DAILY [facility] Last Admin: 06/17/18 09:17 Dose: 1 patch Ondansetron HCl (Zofran Inj) 4 mg IV.PUSH Q6H PRN PRN Reason: NAUSEA OR VOMITING Pantoprazole Sodium (Protonix Inj) 40 mg IV.PUSH DAILY [facility] Last Admin: 06/17/18 09:17 Dose: 40 mg Senna/Docusate Sodium (Meagan-Colace) 1 tab PO BID [facility] Last Admin: 06/17/18 09:18 Dose: 1 tab Sennosides (Senokot) 17.2 mg PO Q12H PRN PRN Reason: Moderate Constipation Sertraline HCl (Zoloft) 50 mg PO DAILY [facility] Last Admin: 06/17/18 09:18 Dose: 50 mg Sodium Chloride (Ns Flush) 2 ml IV.FLUSH PRN PRN PRN Reason: FLUSH AFTER USING IV ACCESS Sodium Chloride (Ns Flush) 2 ml IV.FLUSH BID [facility] Last Admin: 06/17/18 09:18 Dose: 2 ml Sodium Chloride (Barber Nasal [place]) 2 spray EACH NARE QID [facility] Last Admin: 06/17/18 09:18 Dose: 2 spray Physical Exam Vital signs: Vital Signs 06/16/18 14:00 06/16/18 15:00 06/16/18 16:00 Temperature 97.8 F Pulse Rate 68 74 71 Respiratory Rate 23 30 H 23 Blood Pressure 144/67 H 144/64 H 167/72 H Pulse Oximetry 94 L 89 L 90 L Pulse Oximetry [Resting on Room Air] Pulse Oximetry [Resting with Oxygen] 06/16/18 16:30 06/16/18 17:00 06/16/18 18:00 Temperature Pulse Rate 77 70 Respiratory Rate 33 H 18 Blood Pressure 176/77 H 169/72 H Pulse Oximetry 93 L 94 L Pulse Oximetry [Resting on Room Air] 88 L Pulse Oximetry [Resting with Oxygen] 94 L 06/16/18 20:00 06/16/18 20:36 06/16/18 22:00 Temperature 97.4 F L Pulse Rate 95 H 127 H Respiratory Rate 17 Blood Pressure 123/57 L Pulse Oximetry 92 L 98 Pulse Oximetry [Resting on Room Air] Pulse Oximetry [Resting with Oxygen] 06/16/18 23:58 06/17/18 00:00 06/17/18 04:00 Temperature 98 F 98 F Pulse Rate 63 75 109 H Respiratory Rate 16 16 Blood Pressure 173/75 H 155/82 H Pulse Oximetry 96 98 Pulse Oximetry [Resting on Room Air] Pulse Oximetry [Resting with Oxygen] 06/17/18 08:00 06/17/18 12:00 Temperature 97.4 F L 97.6 F Pulse Rate 69 108 H Respiratory Rate 14 16 Blood Pressure 123/77 125/56 L Pulse Oximetry 98 98 Pulse Oximetry [Resting on Room Air] Pulse Oximetry [Resting with Oxygen] Intake & Output 06/16/18 06/17/18 06/17/18 18:59 06:59 18:59 Intake Total 1120 / 1120 100 / 100 Output Total 750 / 750 1150 / 1150 Balance -750 / -750 -30 / -30 100 / 100 Intake: IV 1000 / 1000 100 / 100 Magnesium Sulfate 1 gm/D5W 100 100 / 100 ml Premix 100 ML @ 100 mls/hr IV.SIG Q1H LIT Rx#:[id number] NS Inj 1,000 ML @ 75 mls/hr IV. 1000 / 1000 SIG .[id number] ONE Rx#:[id number] Oral 120 / 120 Output: Urine 400 / 400 Urine Amount (Catheter) 750 / 750 750 / 750 Indwelling Urethral Catheter 750 / 750 750 / 750 Other: Date of Last Bowel Movement 06/16/18 # Bowel Movements 1 - Constitutional no acute distress - Routine HEENT Exam Head: Present: normocephalic Eye: Present: PERRL ENT: Present: mucous membranes moist - Routine Neck Exam Present: full ROM - Routine Respiratory Exam Present: diminished air movement - Routine Cardiovascular Exam Present: S1, S2, irregular rhythm Comments: atrial fibrillation - Routine Abdominal Exam Present: normoactive bowel sounds - Routine Skin Exam Present: intact - Routine Neurological Exam Present: oriented X3 - Detailed Neurological Exam: Coma Scale Eye Opening: Spontaneous Verbal Response: Oriented Motor Response: Obey commands [place] Coma Scale Total: 15 - Routine Psychiatric Exam Present: normal affect - Urinary Catheter Management Indwelling Urethral Catheter Cath placed during this visit: yes, but has since been removed by the nurse Reason for continuing: Hourly intake/output Insertion date: 06/14/18 Insertion time: 10:30 Removal date: 06/12/18 Removal time: 13:55 Female External Cath placed during this visit: no Results 06/17/18 06:00 06/17/18 06:00 Coagulation 06/17/18 Range/Units 06:00 PT 10.6 (9.8-11.6) sec CBC 06/16/18 06/17/18 Range/Units 04:57 06:00 WBC 10.6 8.8 (4.0-11.0) th/mm3 RBC 2.91 L 3.20 L (4.00-5.30) mil/mm3 Hgb 9.0 L 10.4 L (11.6-15.3) gm/dL Hct 26.3 L 29.3 L (35.0-46.0) % Plt Count 160 199 (150-450) th/mm3 Comprehensive Metabolic Panel 06/16/18 06/17/18 Range/Units 04:57 06:00 Sodium 140 139 (136-145) meq/L Potassium 4.5 D 4.1 (3.5-5.1) meq/L Chloride 109 H 108 H (98-107) meq/L Carbon Dioxide 19.9 L 21.6 (21.0-32.0) meq/L BUN 31 H 29 H (7-18) mg/dL Creatinine 1.18 H 1.37 H (0.50-1.00) mg/dL Calcium 8.0 L 7.8 L (8.5-10.1) mg/dL Intake and Output 06/16/18 06/17/18 06/17/18 22:59 06:59 14:59 Intake Total 1120 / 1120 100 / 100 Output Total 750 / 750 1150 / 1150 Balance -750 / -750 -30 / -30 100 / 100 Intake: IV 1000 / 1000 100 / 100 Magnesium Sulfate 1 gm/D5W 100 100 / 100 ml Premix 100 ML @ 100 mls/hr IV.SIG Q1H LIT Rx#:[id number] NS Inj 1,000 ML @ 75 mls/hr IV. 1000 / 1000 SIG .[id number] ONE Rx#:[id number] Oral 120 / 120 Output: Urine 400 / 400 Urine Amount (Catheter) 750 / 750 750 / 750 Indwelling Urethral Catheter 750 / 750 750 / 750 Other: # Bowel Movements 1 - Imaging and Cardiology Imaging: Impressions Chest X-Ray 06/16/18 00:00 CONCLUSION: Diffuse increased interstitial markings related to underlying chronic interstitial disease versus more acute diffuse pulmonary edema. Bilateral pleural effusions being worse on the right. Increased density at the bases related to the effusions. Some degree of superimposed atelectasis or consolidation especially at the right base can be considered. Assessment and Plan - Assessment (1) Atrial fibrillation with RVR Code(s): I48.91 - Unspecified atrial fibrillation Status: Acute (2) Elevated troponin Code(s): R74.8 - Abnormal levels of other serum enzymes Status: Acute (3) Acute renal failure Code(s): N17.9 - Acute kidney failure, unspecified Status: Acute (4) Acute hyperkalemia Code(s): E87.5 - Hyperkalemia Status: Acute (5) COPD (chronic obstructive pulmonary disease) Code(s): J44.9 - Chronic obstructive pulmonary disease, unspecified Status: Chronic (6) Tobacco abuse Code(s): Z72.0 - Tobacco use Status: Chronic - Plan She is currently back in atrial fibrillation, continue rate control with metoprolol. Pulmonary evaluation and treatment in progress. Recommend to start Eliquis once OK with GI. Continue to increase her activity as she tolerates. We will continue to monitor the patient during her hospitalization. The patient was seen and evaluated by Dr. Saleh who participated in care, management and decision making. - Attending Attestation Patient seen and examined. I reviewed and agree with the evaluation and plan as presented. Continue AF management. Start Eliquis once OK with GI. Increase activity, PT. (3) Acute renal failure Qualifiers: Acute renal failure type: unspecified Qualified Code(s): N17.9 - Acute kidney failure, unspecified (5) COPD (chronic obstructive pulmonary disease) Qualifiers: COPD type: unspecified COPD Qualified Code(s): J44.9 - Chronic obstructive pulmonary disease, unspecified
--- NOTE | 2018-06-17 15:03 | P.PN ---
Subjective Interval history: ALERT LESS SOB Physical Exam Vital signs: Vital Signs 06/16/18 16:00 06/16/18 16:30 06/16/18 17:00 Temperature 97.8 F Pulse Rate 71 77 Respiratory Rate 23 33 H Blood Pressure 167/72 H 176/77 H Pulse Oximetry 90 L 93 L Pulse Oximetry [Resting on Room Air] 88 L Pulse Oximetry [Resting with Oxygen] 94 L 06/16/18 18:00 06/16/18 20:00 06/16/18 20:36 Temperature 97.4 F L Pulse Rate 70 95 H 127 H Respiratory Rate 18 17 Blood Pressure 169/72 H 123/57 L Pulse Oximetry 94 L 92 L Pulse Oximetry [Resting on Room Air] Pulse Oximetry [Resting with Oxygen] 06/16/18 22:00 06/16/18 23:58 06/17/18 00:00 Temperature 98 F Pulse Rate 63 75 Respiratory Rate 16 Blood Pressure 173/75 H Pulse Oximetry 98 96 Pulse Oximetry [Resting on Room Air] Pulse Oximetry [Resting with Oxygen] 06/17/18 04:00 06/17/18 08:00 06/17/18 12:00 Temperature 98 F 97.4 F L 97.6 F Pulse Rate 109 H 69 108 H Respiratory Rate 16 14 16 Blood Pressure 155/82 H 123/77 125/56 L Pulse Oximetry 98 98 98 Pulse Oximetry [Resting on Room Air] Pulse Oximetry [Resting with Oxygen] Intake & Output 06/16/18 06/17/18 06/17/18 18:59 06:59 18:59 Intake Total 1120 / 1120 100 / 100 Output Total 750 / 750 1150 / 1150 Balance -750 / -750 -30 / -30 100 / 100 Intake: IV 1000 / 1000 100 / 100 Magnesium Sulfate 1 gm/D5W 100 100 / 100 ml Premix 100 ML @ 100 mls/hr IV.SIG Q1H LIT Rx#:[id number] NS Inj 1,000 ML @ 75 mls/hr IV. 1000 / 1000 SIG .[id number] ONE Rx#:[id number] Oral 120 / 120 Output: Urine 400 / 400 Urine Amount (Catheter) 750 / 750 750 / 750 Indwelling Urethral Catheter 750 / 750 750 / 750 Other: Date of Last Bowel Movement 06/16/18 # Bowel Movements 1 Narrative: GENERAL: mal-nourished, well-developed frail patient. SKIN: Warm and dry. HEAD: Normocephalic. EYES: No scleral icterus. No injection or drainage. NECK: Supple, trachea midline. No JVD or lymphadenopathy. CARDIOVASCULAR: Irregularly irregular RVR RESPIRATORY: Breath sounds equal bilaterally. No accessory muscle use. GASTROINTESTINAL: Abdomen soft, non-tender, nondistended. EXTREMITIES: No edema NEUROLOGICAL: Awake, alert, - Urinary Catheter Management Indwelling Urethral Catheter Cath placed during this visit: yes, but has since been removed by the nurse Reason for continuing: Hourly intake/output Insertion date: 06/14/18 Insertion time: 10:30 Removal date: 06/12/18 Removal time: 13:55 Female External Cath placed during this visit: no Results - Labs CBC & Chem 7: 06/17/18 06:00 06/17/18 06:00 Laboratory Results - last 24 hr 06/12/18 06/17/18 06/17/18 11:57 06:00 06:00 WBC RBC Hgb Hct MCV MCH MCHC RDW Plt Count MPV Retic Count 2.6 Absolute Retic 83.7 PT INR Sodium 139 Potassium 4.1 Chloride 108 H Carbon Dioxide 21.6 Anion Gap 9 BUN 29 H Creatinine 1.37 H Estimated GFR 37 L Random Glucose 92 Calcium 7.8 L Magnesium 1.5 HCV RNA (PCR) IUs/ml Less than 15 HCV RNA PCR log IUs/ml Less than 1.18 06/17/18 06/17/18 06:00 06:00 WBC 8.8 RBC 3.20 L Hgb 10.4 L Hct 29.3 L MCV 91.4 MCH 32.5 MCHC 35.5 RDW 14.8 Plt Count 199 MPV 8.3 Retic Count Absolute Retic PT 10.6 INR 1.0 Sodium Potassium Chloride Carbon Dioxide Anion Gap BUN Creatinine Estimated GFR Random Glucose Calcium Magnesium HCV RNA (PCR) IUs/ml HCV RNA PCR log IUs/ml Microbiology 06/11/18 09:47 Blood - Peripheral Aerobic Blood Culture - Final No growth in 5 days 06/11/18 09:47 Blood - Peripheral Anaerobic Blood Culture - Final No growth in 5 days 06/11/18 09:47 Blood - Peripheral Aerobic Blood Culture - Final No growth in 5 days 06/11/18 09:47 Blood - Peripheral Anaerobic Blood Culture - Final No growth in 5 days Assessment and Plan - Plan COPD EXACERBATION AFIB PLAN O2 BRONCHODILATOR THERAPY INCREASE ACTIVITY HOME SOON
--- NOTE | 2018-06-17 15:28 | P.CONGI ---
History of Present Illness Consult date: 06/17/18 Consult reason: Patient is positive for alcohol stool history of new onset A. fib with NOAC, anemia Chief complaint: \Hyperkalemia History of Present Illness: This is a very frail 77-year old female patient with significant past medical history of COPD chronic tobacco abuse anxiety depression hypertension and allergic rhinitis but was otherwise doing well up until she presented to [facility] with difficulty of breathing. Surgical history includes hysterectomy twice with old surgical scar in the abdomen. She was found out to have acute kidney injury at the time of admission and and was having abdominal pain associated with nausea vomiting and diarrhea home after taking Bactrim. Her potassium was at 8.8 with elevated BUN and creatinine which patient does not have any prior kidney disease. She had an emergent dialysis and is now improving with her current creatinine of 1.37 BUN of 29 GFR 37. our service is consulted for possible positive stool with new onset atrial fibrillation with recommendations for novel oral anticoagulant therapy NOAC. Review of Systems All other systems reviewed negative except as stated in HPI PMFSH - History History Provided By: Patient - Medical History Medical History: Medical History (Last Reviewed 06/17/18 @ 08:45 by Jada Narayanan) Acute kidney injury Allergic rhinitis Anxiety COPD (chronic obstructive pulmonary disease) Depression HTN (hypertension) Hyperkalemia Leukocytosis MDRO (multiple drug resistant organisms) resistance Onset Date: ~06/11/18 Normocytic anemia Tobacco abuse - Surgical History Surgical History: Surgical History (Last Reviewed 06/17/18 @ 08:45 by Jada Narayanan) Surgical history unknown - Family History Family History: Family History (Last Updated 06/11/18 @ 12:48 by Jordan Aguiar MD) Other Paternal family history of emphysema - Tobacco History Second Hand Smoke Exposure: Yes Tobacco Use In Past 30 Days: Yes Smoking Status: Current some day smoker Tobacco Type: Cigarettes - Alcohol History How Often Do You Have a Drink Containing Alcohol: Never - Substance Use History Substance History: No History of Abuse - Travel History Recent Travel in the [place] Within the Last 8 Weeks: No Recent Travel Out of the Country Within the Last 8 Weeks: No - Immunization History Tetanus Immunization: Unsure Hx Influenza Vaccine This Season: No Medications and Allergies Active Medications: Active Medications Acetaminophen (Tylenol) 650 mg PO Q6H PRN PRN Reason: PAIN 1-10 AND/OR FEVER >101F Last Admin: 06/13/18 01:42 Dose: 650 mg Al Hydroxide/Mg Hydroxide (Milk Of Magnesia Liq) 30 ml PO Q12H PRN PRN Reason: Mild Constipation Albuterol (Albuterol Neb (Prn)) 2.5 mg NEB Q2HR NEB PRN PRN Reason: SHORTNESS OF BREATH/WHEEZING Last Admin: 06/16/18 00:57 Dose: 2.5 mg Amlodipine Besylate (Norvasc) 5 mg PO DAILY [facility] Last Admin: 06/17/18 09:18 Dose: 5 mg Bisacodyl (Dulcolax Supp) 10 mg RECTAL DAILY PRN PRN Reason: SEVERE CONSITIPATION Buspirone HCl (Buspar) 10 mg PO BID [facility] Last Admin: 06/17/18 09:18 Dose: 10 mg Cetirizine HCl (Zyrtec) 10 mg PO DAILY [facility] Last Admin: 06/17/18 09:18 Dose: 10 mg Ciprofloxacin HCl (Cipro) 500 mg PO Q18H [facility] Last Admin: 06/17/18 11:41 Dose: 500 mg Dextrose (D50w Vial) 50 ml IV.PUSH UNSCH PRN PRN Reason: PER HYPOGLYCEMIA PROTOCOL Glucagon (Glucagon Inj) 1 mg OTHER PRN PRN PRN Reason: for Hypoglycemia Protocol Guaifenesin (Mucinex Er) 600 mg PO Q12H PRN PRN Reason: CONGESTION Last Admin: 06/16/18 11:59 Dose: 600 mg Heparin Sodium (Porcine) (Heparin Inj) 5,000 units SQ Q12H [facility] Last Admin: 06/17/18 11:41 Dose: 5,000 units Heparin Sodium (Porcine) (Heparin Inj) 0 units IV.FLUSH WITH DIALYSIS PRN PRN Reason: Flush each lumen Diltiazem HCl 125 mg/ Sodium (Chloride) 125 mls @ 5 mls/hr IV.CONT TITRATE PRN ; Protocol PRN Reason: Per Protocol Last Titration: 06/14/18 15:00 Dose: 0 mg/hr, 0 mls/hr Heparin Sodium/Dextrose (Heparin/D5w 25,000 U/250 Ml) 25,000 unit in 250 mls @ 6 mls/hr IV.CONT TITRATE PRN; Protocol PRN Reason: Per Protocol Last Titration: 06/14/18 11:00 Dose: Infused Lactulose (Lactulose Liq) 30 ml PO DAILY PRN PRN Reason: SEVERE CONSITIPATION Metoprolol Tartrate (Lopressor) 100 mg PO BID@0600,1800 [facility] Last Admin: 06/17/18 06:03 Dose: 100 mg Nicotine (Habitrol 14 Mg Patch.24 Hr) 1 patch T-DERMAL DAILY [facility] Last Admin: 06/17/18 09:17 Dose: 1 patch Ondansetron HCl (Zofran Inj) 4 mg IV.PUSH Q6H PRN PRN Reason: NAUSEA OR VOMITING Pantoprazole Sodium (Protonix Inj) 40 mg IV.PUSH DAILY [facility] Last Admin: 06/17/18 09:17 Dose: 40 mg Senna/Docusate Sodium (Meagan-Colace) 1 tab PO BID [facility] Last Admin: 06/17/18 09:18 Dose: 1 tab Sennosides (Senokot) 17.2 mg PO Q12H PRN PRN Reason: Moderate Constipation Sertraline HCl (Zoloft) 50 mg PO DAILY [facility] Last Admin: 06/17/18 09:18 Dose: 50 mg Sodium Chloride (Ns Flush) 2 ml IV.FLUSH PRN PRN PRN Reason: FLUSH AFTER USING IV ACCESS Sodium Chloride (Ns Flush) 2 ml IV.FLUSH BID [facility] Last Admin: 06/17/18 09:18 Dose: 2 ml Sodium Chloride (Hawkeye Nasal [place]) 2 spray EACH NARE QID [facility] Last Admin: 06/17/18 13:00 Dose: 2 spray Allergies Allergy/AdvReac Type Severity Reaction Status Date / Time No Known Allergies Allergy Verified 06/11/18 09:25 Home Medications Medication Instructions Recorded Confirmed Type amlodipine 10 mg PO DAILY 06/11/18 06/11/18 History buspirone 10 mg PO BID 06/11/18 06/11/18 History cetirizine 10 mg PO DAILY 06/11/18 06/11/18 History lisinopril 40 mg PO DAILY 06/11/18 06/11/18 History metoprolol succinate 50 mg PO BID 06/11/18 06/11/18 History sertraline 50 mg PO DAILY 06/11/18 06/11/18 History sulfamethoxazole-trimethoprim 1 tab PO Q12H 06/11/18 06/11/18 History Exam Vital signs: Vital Signs 06/16/18 16:00 06/16/18 16:30 06/16/18 17:00 Temperature 97.8 F Pulse Rate 71 77 Respiratory Rate 23 33 H Blood Pressure 167/72 H 176/77 H Pulse Oximetry 90 L 93 L Pulse Oximetry [Resting on Room Air] 88 L Pulse Oximetry [Resting with Oxygen] 94 L 06/16/18 18:00 06/16/18 20:00 06/16/18 20:36 Temperature 97.4 F L Pulse Rate 70 95 H 127 H Respiratory Rate 18 17 Blood Pressure 169/72 H 123/57 L Pulse Oximetry 94 L 92 L Pulse Oximetry [Resting on Room Air] Pulse Oximetry [Resting with Oxygen] 06/16/18 22:00 06/16/18 23:58 06/17/18 00:00 Temperature 98 F Pulse Rate 63 75 Respiratory Rate 16 Blood Pressure 173/75 H Pulse Oximetry 98 96 Pulse Oximetry [Resting on Room Air] Pulse Oximetry [Resting with Oxygen] 06/17/18 04:00 06/17/18 08:00 06/17/18 12:00 Temperature 98 F 97.4 F L 97.6 F Pulse Rate 109 H 69 108 H Respiratory Rate 16 14 16 Blood Pressure 155/82 H 123/77 125/56 L Pulse Oximetry 98 98 98 Pulse Oximetry [Resting on Room Air] Pulse Oximetry [Resting with Oxygen] Intake & Output 06/16/18 06/17/18 06/17/18 18:59 06:59 18:59 Intake Total 1120 / 1120 200 / 200 Output Total 750 / 750 1150 / 1150 Balance -750 / -750 -30 / -30 200 / 200 Intake: IV 1000 / 1000 200 / 200 Magnesium Sulfate 1 gm/D5W 100 200 / 200 ml Premix 100 ML @ 100 mls/hr IV.SIG Q1H LIT Rx#:[id number] NS Inj 1,000 ML @ 75 mls/hr IV. 1000 / 1000 SIG .[id number] ONE Rx#:[id number] Oral 120 / 120 Output: Urine 400 / 400 Urine Amount (Catheter) 750 / 750 750 / 750 Indwelling Urethral Catheter 750 / 750 750 / 750 Other: Date of Last Bowel Movement 06/16/18 # Bowel Movements 1 - Constitutional no acute distress - Routine HEENT Exam Head: Present: normocephalic - Routine Neck Exam Present: supple - Routine Respiratory Exam Present: CTA bilaterally - Routine Cardiovascular Exam Present: RRR, S1, S2 - Routine Abdominal Exam Present: soft, normoactive bowel sounds. Absent: tenderness, distended Comments: Flat, scaphoid abdomen - Routine Extremities Exam Present: pulses intact, normal capillary refill - Routine Skin Exam Present: intact - Routine Neurological Exam Present: alert, oriented X3 Results - Labs CBC & Chem 7: 06/17/18 06:00 06/17/18 06:00 Labs: Laboratory Results - last 24 hr 06/12/18 06/17/18 06/17/18 11:57 06:00 06:00 WBC RBC Hgb Hct MCV MCH MCHC RDW Plt Count MPV Retic Count 2.6 Absolute Retic 83.7 PT INR Sodium 139 Potassium 4.1 Chloride 108 H Carbon Dioxide 21.6 Anion Gap 9 BUN 29 H Creatinine 1.37 H Estimated GFR 37 L Random Glucose 92 Calcium 7.8 L Magnesium 1.5 HCV RNA (PCR) IUs/ml Less than 15 HCV RNA PCR log IUs/ml Less than 1.18 06/17/18 06/17/18 06:00 06:00 WBC 8.8 RBC 3.20 L Hgb 10.4 L Hct 29.3 L MCV 91.4 MCH 32.5 MCHC 35.5 RDW 14.8 Plt Count 199 MPV 8.3 Retic Count Absolute Retic PT 10.6 INR 1.0 Sodium Potassium Chloride Carbon Dioxide Anion Gap BUN Creatinine Estimated GFR Random Glucose Calcium Magnesium HCV RNA (PCR) IUs/ml HCV RNA PCR log IUs/ml Assessment and Plan (1) Occult blood positive stool Status: Acute Code(s): R19.5 - Other fecal abnormalities (2) GI bleeding Status: Acute Code(s): K92.2 - Gastrointestinal hemorrhage, unspecified (3) Acute renal failure Status: Acute Code(s): N17.9 - Acute kidney failure, unspecified (4) Acute hyperkalemia Status: Acute Code(s): E87.5 - Hyperkalemia (5) COPD (chronic obstructive pulmonary disease) Status: Chronic Code(s): J44.9 - Chronic obstructive pulmonary disease, unspecified (6) Normocytic anemia Status: Acute Code(s): D64.9 - Anemia, unspecified (7) Leukocytosis Status: Acute Code(s): D72.829 - Elevated white blood cell count, unspecified - Plan 06/17/2018 This is a very frail 77-year old female patient with significant past medical history of COPD chronic tobacco abuse anxiety depression hypertension and allergic rhinitis but was otherwise doing well up until she presented to [facility] with difficulty of breathing. Surgical history includes hysterectomy twice with old surgical scar in the abdomen. She was found out to have acute kidney injury at the time of admission and and was having abdominal pain associated with nausea vomiting and diarrhea home after taking Bactrim. Her potassium was at 8.8 with elevated BUN and creatinine which patient does not have any prior kidney disease. She had an emergent dialysis and is now improving with her current creatinine of 1.37 BUN of 29 GFR 37. our service is consulted for possible positive stool with new onset atrial fibrillation with recommendations for novel oral anticoagulant therapy NOAC. Assessment Acute kidney injury -BUN 29 creatinine 1.37 GFR 37 New onset atrial fibrillation Positive occult blood Normocytic anemia -patient drop in hemoglobin might be secondary to decline in renal functions and not necessarily bleeding. Although patient was positive with the alcohol blood in the stool, colonoscopy at this time patient is too drastic for the patient. Patient is just recovering hemodynamically. We might do endoscopic exam once patient is a stable can be also done as an outpatient. Meanwhile we will be actively monitoring her hemoglobin and other labs. We will monitor closely for active GI bleed. Today's lab hemoglobin 10.4 hematocrit 29.3 platelet 199 Plan Cardiac diet For EGD colonoscopy once patient w cardiac clearance. Monitor for active bleeding Monitor labs Avoid hepatotoxins and nephrotoxins Supportive care Further recommendations to follow Patient seen and examined by myself and Dr. Davey and this note is written on his behalf. - Attending Attestation Dr. Davey (3) Acute renal failure Qualifiers: Acute renal failure type: unspecified Qualified Code(s): N17.9 - Acute kidney failure, unspecified (5) COPD (chronic obstructive pulmonary disease) Qualifiers: COPD type: unspecified COPD Qualified Code(s): J44.9 - Chronic obstructive pulmonary disease, unspecified (7) Leukocytosis Qualifiers: Leukocytosis type: unspecified Qualified Code(s): D72.829 - Elevated white blood cell count, unspecified
[2018-06-17] MEDS ORDERED: Zolpidem Tartrate 5 MG Tablet PO ONE (21:14)
[2018-06-18] MEDS: Heparin - SQ 10,000 UNITS/ML Vial SQ SCH ×2 (00:03→12:38)
[2018-06-18] MEDS: Metoprolol Tartrate 100 MG Tablet PO SCH (05:18)
[2018-06-18] MEDS: Ciprofloxacin 500 MG Tablet PO SCH (05:18)
--- NOTE | 2018-06-18 08:57 | P.PN ---
Subjective Interval history: ALERT LESS SOB Physical Exam Vital signs: Vital Signs 06/17/18 12:00 06/17/18 16:00 06/17/18 16:55 Temperature 97.6 F 97.6 F Pulse Rate 131 H 73 115 H Respiratory Rate 16 20 Blood Pressure 125/56 L 174/78 H Pulse Oximetry 98 99 06/17/18 20:00 06/17/18 20:25 06/18/18 00:00 Temperature 97.8 F 98.5 F Pulse Rate 85 99 H 64 Respiratory Rate 20 17 Blood Pressure 160/69 H 160/72 H Pulse Oximetry 98 94 L 06/18/18 04:00 Temperature 97.7 F Pulse Rate 104 H Respiratory Rate 17 Blood Pressure 161/84 H Pulse Oximetry 95 Intake & Output 06/17/18 06/18/18 06/18/18 18:59 06:59 18:59 Intake Total 820 / 820 240 / 240 Balance 820 / 820 240 / 240 Weight 42.4 kg Intake: IV 200 / 200 Magnesium Sulfate 1 gm/D5W 100 200 / 200 ml Premix 100 ML @ 100 mls/hr IV.SIG Q1H LIT Rx#:[id number] Oral 620 / 620 240 / 240 Other: # Voids 3 2 Date of Last Bowel Movement 06/17/18 Narrative: GENERAL: mal-nourished, well-developed frail patient. SKIN: Warm and dry. HEAD: Normocephalic. EYES: No scleral icterus. No injection or drainage. NECK: Supple, trachea midline. No JVD or lymphadenopathy. CARDIOVASCULAR: Irregularly irregular RVR RESPIRATORY: Breath sounds equal bilaterally. No accessory muscle use. GASTROINTESTINAL: Abdomen soft, non-tender, nondistended. EXTREMITIES: No edema NEUROLOGICAL: Awake, alert, - Urinary Catheter Management Indwelling Urethral Catheter Cath placed during this visit: yes, but has since been removed by the nurse Reason for continuing: Hourly intake/output Insertion date: 06/14/18 Insertion time: 10:30 Removal date: 06/12/18 Removal time: 13:55 Female External Cath placed during this visit: no Results - Labs CBC & Chem 7: 06/17/18 06:00 06/17/18 06:00 Laboratory Results - last 24 hr 06/12/18 11:57 HCV RNA (PCR) IUs/ml Less than 15 HCV RNA PCR log IUs/ml Less than 1.18 Assessment and Plan - Plan COPD EXACERBATION AFIB PLAN O2 BRONCHODILATOR THERAPY INCREASE ACTIVITY TO SNF
[2018-06-18] MEDS: Pantoprazole Inj 40 MG Vial IV.PUSH SCH (09:36)
[2018-06-18] MEDS: amLODIPine 5 MG Tablet PO SCH (09:36)
[2018-06-18] MEDS: Sertraline 50 MG Tablet PO SCH (09:37)
--- NOTE | 2018-06-18 10:20 | P.PNGI ---
Subjective Interval history: Patient laying in bed No reports of nausea vomiting no abdominal pain Physical Exam Vital signs: Vital Signs 06/17/18 12:00 06/17/18 16:00 06/17/18 16:55 Temperature 97.6 F 97.6 F Pulse Rate 131 H 73 115 H Respiratory Rate 16 20 Blood Pressure 125/56 L 174/78 H Pulse Oximetry 98 99 06/17/18 20:00 06/17/18 20:25 06/18/18 00:00 Temperature 97.8 F 98.5 F Pulse Rate 85 99 H 64 Respiratory Rate 20 17 Blood Pressure 160/69 H 160/72 H Pulse Oximetry 98 94 L 06/18/18 04:00 06/18/18 09:02 Temperature 97.7 F 97.8 F Pulse Rate 104 H 112 H Respiratory Rate 17 16 Blood Pressure 161/84 H 138/72 Pulse Oximetry 95 97 Intake & Output 06/17/18 06/18/18 06/18/18 18:59 06:59 18:59 Intake Total 820 / 820 240 / 240 Balance 820 / 820 240 / 240 Weight 42.4 kg Intake: IV 200 / 200 Magnesium Sulfate 1 gm/D5W 100 200 / 200 ml Premix 100 ML @ 100 mls/hr IV.SIG Q1H LIT Rx#:[id number] Oral 620 / 620 240 / 240 Other: # Voids 3 2 Date of Last Bowel Movement 06/17/18 - Constitutional no acute distress, cachectic, chronically ill appearing - Routine HEENT Exam Head: Present: normocephalic - Routine Neck Exam Present: supple - Routine Respiratory Exam Present: CTA bilaterally - Routine Cardiovascular Exam Present: RRR, S1, S2 - Routine Abdominal Exam Present: soft, normoactive bowel sounds. Absent: tenderness, distended Comments: Flat belly - Routine Extremities Exam Present: pulses intact, normal capillary refill - Routine Skin Exam Present: intact - Routine Neurological Exam Present: alert, oriented X3 - Urinary Catheter Management Indwelling Urethral Catheter Cath placed during this visit: yes, but has since been removed by the nurse Reason for continuing: Hourly intake/output Insertion date: 06/14/18 Insertion time: 10:30 Removal date: 06/12/18 Removal time: 13:55 Female External Cath placed during this visit: no Results - Labs CBC & Chem 7: 06/17/18 06:00 06/17/18 06:00 Assessment and Plan (1) Occult blood positive stool Status: Acute Code(s): R19.5 - Other fecal abnormalities (2) GI bleeding Status: Acute Code(s): K92.2 - Gastrointestinal hemorrhage, unspecified (3) Acute renal failure Status: Acute Code(s): N17.9 - Acute kidney failure, unspecified (4) Acute hyperkalemia Status: Acute Code(s): E87.5 - Hyperkalemia (5) COPD (chronic obstructive pulmonary disease) Status: Chronic Code(s): J44.9 - Chronic obstructive pulmonary disease, unspecified (6) Normocytic anemia Status: Acute Code(s): D64.9 - Anemia, unspecified (7) Leukocytosis Status: Acute Code(s): D72.829 - Elevated white blood cell count, unspecified - Plan 06/17/2018 This is a very frail 77-year old female patient with significant past medical history of COPD chronic tobacco abuse anxiety depression hypertension and allergic rhinitis but was otherwise doing well up until she presented to [facility] with difficulty of breathing. Surgical history includes hysterectomy twice with old surgical scar in the abdomen. She was found out to have acute kidney injury at the time of admission and and was having abdominal pain associated with nausea vomiting and diarrhea home after taking Bactrim. Her potassium was at 8.8 with elevated BUN and creatinine which patient does not have any prior kidney disease. She had an emergent dialysis and is now improving with her current creatinine of 1.37 BUN of 29 GFR 37. our service is consulted for possible positive stool with new onset atrial fibrillation with recommendations for novel oral anticoagulant therapy NOAC. Assessment Acute kidney injury -BUN 29 creatinine 1.37 GFR 37 New onset atrial fibrillation Positive occult blood Normocytic anemia -patient drop in hemoglobin might be secondary to decline in renal functions and not necessarily bleeding. Although patient was positive with the alcohol blood in the stool, colonoscopy at this time patient is too drastic for the patient. Patient is just recovering hemodynamically. We might do endoscopic exam once patient is a stable can be also done as an outpatient. Meanwhile we will be actively monitoring her hemoglobin and other labs. We will monitor closely for active GI bleed. Today's lab hemoglobin 10.4 hematocrit 29.3 platelet 199 06/18/2018 Assessment Acute kidney failure New onset atrial fibrillation on heparin drip to transition to NOAC Eliquis 2.5 mg twice daily Plan Cardiac diet Okay with Eliquis 2.5 mg twice daily Patient can have EGD as an outpatient when she gets stronger Monitor for active bleeding Monitor labs Avoid hepatotoxins and nephrotoxins Supportive care Okay to DC to assisted today, patient can follow-up as an outpatient to do the EGD. GI will signed off please reconsult as needed Patient seen and examined by myself and Dr. Davey and this note is written on his behalf. - Attending Attestation Dr Davey (3) Acute renal failure Qualifiers: Acute renal failure type: unspecified Qualified Code(s): N17.9 - Acute kidney failure, unspecified (5) COPD (chronic obstructive pulmonary disease) Qualifiers: COPD type: unspecified COPD Qualified Code(s): J44.9 - Chronic obstructive pulmonary disease, unspecified (7) Leukocytosis Qualifiers: Leukocytosis type: unspecified Qualified Code(s): D72.829 - Elevated white blood cell count, unspecified
[2018-06-18] MEDS: Senna/Docusate Sodium 8.6/50 MG Tablet PO SCH (12:39)
[2018-06-18] MEDS: Sodium Chloride 0.65% Nasal Spray 45 ML Bottle EACH NARE SCH (12:42)
[2018-06-18] MEDS ORDERED: amLODIPine 5 MG Tablet PO SCH (13:11)
--- NOTE | 2018-06-18 13:19 | P.PNCA ---
Subjective Interval history: She denies any CP, pressure, palpitations, dizziness or edema. She states that her shortness of breath has improved and that she is feeling better. Medications and Allergies Allergies Allergy/AdvReac Type Severity Reaction Status Date / Time No Known Allergies Allergy Verified 06/11/18 09:25 Home Medications Medication Instructions Recorded Confirmed Type amlodipine 10 mg PO DAILY 06/11/18 06/11/18 History buspirone 10 mg PO BID 06/11/18 06/11/18 History cetirizine 10 mg PO DAILY 06/11/18 06/11/18 History sertraline 50 mg PO DAILY 06/11/18 06/11/18 History Active Medications: Active Medications Acetaminophen (Tylenol) 650 mg PO Q6H PRN PRN Reason: PAIN 1-10 AND/OR FEVER >101F Last Admin: 06/13/18 01:42 Dose: 650 mg Al Hydroxide/Mg Hydroxide (Milk Of Carmelita Parada) 30 ml PO Q12H PRN PRN Reason: Mild Constipation Albuterol (Albuterol Neb (Prn)) 2.5 mg NEB Q2HR NEB PRN PRN Reason: SHORTNESS OF BREATH/WHEEZING Last Admin: 06/16/18 00:57 Dose: 2.5 mg Apixaban (Eliquis) 2.5 mg PO BID [facility] Bisacodyl (Dulcolax Supp) 10 mg RECTAL DAILY PRN PRN Reason: SEVERE CONSITIPATION Buspirone HCl (Buspar) 10 mg PO BID [facility] Last Admin: 06/18/18 09:36 Dose: 10 mg Cetirizine HCl (Zyrtec) 10 mg PO DAILY [facility] Last Admin: 06/18/18 09:37 Dose: 10 mg Ciprofloxacin HCl (Cipro) 500 mg PO Q18H [facility] Last Admin: 06/18/18 05:18 Dose: 500 mg Dextrose (D50w Vial) 50 ml IV.PUSH UNSCH PRN PRN Reason: PER HYPOGLYCEMIA PROTOCOL Glucagon (Glucagon Inj) 1 mg OTHER PRN PRN PRN Reason: for Hypoglycemia Protocol Guaifenesin (Mucinex Er) 600 mg PO Q12H PRN PRN Reason: CONGESTION Last Admin: 06/16/18 11:59 Dose: 600 mg Heparin Sodium (Porcine) (Heparin Inj) 5,000 units SQ Q12H [facility] Last Admin: 06/18/18 12:38 Dose: 5,000 units Heparin Sodium (Porcine) (Heparin Inj) 0 units IV.FLUSH WITH DIALYSIS PRN PRN Reason: Flush each lumen Diltiazem HCl 125 mg/ Sodium (Chloride) 125 mls @ 5 mls/hr IV.CONT TITRATE PRN ; Protocol PRN Reason: Per Protocol Last Titration: 06/14/18 15:00 Dose: 0 mg/hr, 0 mls/hr Lactulose (Lactulose Liq) 30 ml PO DAILY PRN PRN Reason: SEVERE CONSITIPATION Metoprolol Tartrate (Lopressor) 100 mg PO BID@0600,1800 [facility] Last Admin: 06/18/18 05:18 Dose: 100 mg Nicotine (Habitrol 14 Mg Patch.24 Hr) 1 patch T-DERMAL DAILY [facility] Last Admin: 06/18/18 09:37 Dose: 1 patch Ondansetron HCl (Zofran Inj) 4 mg IV.PUSH Q6H PRN PRN Reason: NAUSEA OR VOMITING Pantoprazole Sodium (Protonix Inj) 40 mg IV.PUSH DAILY [facility] Last Admin: 06/18/18 09:36 Dose: 40 mg Senna/Docusate Sodium (Meagan-Colace) 1 tab PO BID [facility] Last Admin: 06/18/18 12:39 Dose: Not Given Sennosides (Senokot) 17.2 mg PO Q12H PRN PRN Reason: Moderate Constipation Sertraline HCl (Zoloft) 50 mg PO DAILY [facility] Last Admin: 06/18/18 09:37 Dose: 50 mg Sodium Chloride (Ns Flush) 2 ml IV.FLUSH PRN PRN PRN Reason: FLUSH AFTER USING IV ACCESS Sodium Chloride (Ns Flush) 2 ml IV.FLUSH BID [facility] Last Admin: 06/18/18 12:42 Dose: 2 ml Sodium Chloride ([place] Nasal [place]) 2 spray EACH NARE QID [facility] Last Admin: 06/18/18 12:42 Dose: 2 spray Physical Exam Vital signs: Vital Signs 06/17/18 16:00 06/17/18 16:55 06/17/18 20:00 Temperature 97.6 F Pulse Rate 73 115 H 85 Respiratory Rate 20 Blood Pressure 174/78 H Pulse Oximetry 99 06/17/18 20:25 06/18/18 00:00 06/18/18 04:00 Temperature 97.8 F 98.5 F 97.7 F Pulse Rate 99 H 64 104 H Respiratory Rate 20 17 17 Blood Pressure 160/69 H 160/72 H 161/84 H Pulse Oximetry 98 94 L 95 06/18/18 09:02 Temperature 97.8 F Pulse Rate 112 H Respiratory Rate 16 Blood Pressure 138/72 Pulse Oximetry 97 Intake & Output 06/17/18 06/18/18 06/18/18 18:59 06:59 18:59 Intake Total 820 / 820 240 / 240 Balance 820 / 820 240 / 240 Weight 42.4 kg Intake: IV 200 / 200 Magnesium Sulfate 1 gm/D5W 100 200 / 200 ml Premix 100 ML @ 100 mls/hr IV.SIG Q1H LIT Rx#:[id number] Oral 620 / 620 240 / 240 Other: # Voids 3 2 Date of Last Bowel Movement 06/17/18 - Constitutional no acute distress - Routine HEENT Exam Head: Present: normocephalic Eye: Present: PERRL ENT: Present: mucous membranes moist - Routine Neck Exam Present: full ROM - Routine Respiratory Exam Present: decreased breath sounds, diminished air movement - Routine Cardiovascular Exam Present: S1, S2, irregular rhythm - Routine Abdominal Exam Present: normoactive bowel sounds - Routine Extremities Exam Present: full ROM, pulses intact, normal capillary refill. Absent: cyanosis, clubbing, edema - Routine Skin Exam Present: intact - Routine Neurological Exam Present: oriented X3 - Detailed Neurological Exam: Coma Scale Eye Opening: Spontaneous Verbal Response: Oriented Motor Response: Obey commands [place] Coma Scale Total: 15 - Routine Psychiatric Exam Present: normal affect - Urinary Catheter Management Indwelling Urethral Catheter Cath placed during this visit: yes, but has since been removed by the nurse Reason for continuing: Hourly intake/output Insertion date: 06/14/18 Insertion time: 10:30 Removal date: 06/12/18 Removal time: 13:55 Female External Cath placed during this visit: no Results 06/17/18 06:00 06/17/18 06:00 Coagulation 06/17/18 Range/Units 06:00 PT 10.6 (9.8-11.6) sec CBC 06/17/18 Range/Units 06:00 WBC 8.8 (4.0-11.0) th/mm3 RBC 3.20 L (4.00-5.30) mil/mm3 Hgb 10.4 L (11.6-15.3) gm/dL Hct 29.3 L (35.0-46.0) % Plt Count 199 (150-450) th/mm3 Comprehensive Metabolic Panel 06/17/18 Range/Units 06:00 Sodium 139 (136-145) meq/L Potassium 4.1 (3.5-5.1) meq/L Chloride 108 H (98-107) meq/L Carbon Dioxide 21.6 (21.0-32.0) meq/L BUN 29 H (7-18) mg/dL Creatinine 1.37 H (0.50-1.00) mg/dL Calcium 7.8 L (8.5-10.1) mg/dL Intake and Output 06/17/18 06/18/18 06/18/18 22:59 06:59 14:59 Intake Total 620 / 620 240 / 240 Balance 620 / 620 240 / 240 Intake: Oral 620 / 620 240 / 240 Other: # Voids 3 2 Date of Last Bowel Movement 06/17/18 Weight 42.4 kg Assessment and Plan - Assessment (1) Atrial fibrillation with RVR Code(s): I48.91 - Unspecified atrial fibrillation Status: Acute (2) Elevated troponin Code(s): R74.8 - Abnormal levels of other serum enzymes Status: Acute (3) Acute renal failure Code(s): N17.9 - Acute kidney failure, unspecified Status: Acute (4) Acute hyperkalemia Code(s): E87.5 - Hyperkalemia Status: Acute (5) COPD (chronic obstructive pulmonary disease) Code(s): J44.9 - Chronic obstructive pulmonary disease, unspecified Status: Chronic (6) Tobacco abuse Code(s): Z72.0 - Tobacco use Status: Chronic - Plan The patient is hypertensive, we will increase the amlodipine to 10 mg QD. Continue metoprolol 100 mg BID for rate control. Continue to monitor the patient on telemetry. Endoscopy planned, the patient is cleared from cardiac standpoint. Start Eliquis once cleared by GI. Continue to increase her activity as she tolerates. We will continue to monitor the patient during her hospitalization. The patient was seen and evaluated by Dr. Saleh who participated in care, management and decision making. - Attending Attestation Patient seen and examined. I reviewed and agree with the evaluation and plan as presented. GI evaluation; cleared for endoscopy from card standpoint. Continue current program. Increase activity, PT. (3) Acute renal failure Qualifiers: Acute renal failure type: unspecified Qualified Code(s): N17.9 - Acute kidney failure, unspecified (5) COPD (chronic obstructive pulmonary disease) Qualifiers: COPD type: unspecified COPD Qualified Code(s): J44.9 - Chronic obstructive pulmonary disease, unspecified
[2018-06-18 16:03] VITALS: BP 167/88; PULSE 110; RESP 19; TEMP 98.2; O2SAT 96
--- NOTE | 2018-06-18 17:01 | P.DS ---
DS: Providers Date of admission: 06/11/18 10:50 Primary care physician: Pardeep Duke MD Consults: 06/11/18 12:14 HUB Only Consult Order Routine Consulting Provider: Joel Maldonado 06/11/18 23:26 Consult to Nephrology Routine Consulting Provider: Adi Mason Does the patient have a Owner Manager who follows them?: Yes Preferred Nephrology Aluminum Polisher:: Adi Mason Reason for Consultation: renal failure Spoke with:: Added to list. Comments:: Dr. Mason has already seen. Ordering Provider: RADHA 06/12/18 08:12 Consult to Hospitalist Routine Consulting Provider: Tata Heredia Reason for Consultation: [place] of care in a.m. 06/13. Admission with acute kidney injury, potassium 8.8 on hemodialysis Notified:: Service Spoke with:: Nicole Date Notified:: 06/12/18 Time Notified:: 08:22 Comments:: waiting on assignment - ML Ordering Provider: SAPNA 06/13/18 14:26 Consult to Cardiology Stat Consulting Provider: Tammy Saleh For STAT consult, spoke directly to:: dr saleh Does the patient have a Financial Aid Advisor who follows them?: No Preferred Pump Assembler:: Tammy Saleh Reason for Consultation: new ST changes, a fib w/ rvr in setting of hyperkalemia Notified:: Office Spoke with:: Lor Date Notified:: 06/13/18 Time Notified:: 14:30 Ordering Provider: SENA 06/14/18 17:19 Consult to Pulmonology Routine Consulting Provider: Natalie Estrada Preferred Aluminum Polisher:: Chris Christina Reason for Consultation: Dsypnea and COPD Notified:: Service Spoke with:: doris Date Notified:: 06/14/18 Time Notified:: 17:24 Ordering Provider: CODY 06/16/18 16:31 Consult to Gastroenterology Routine Consulting Provider: Emanuel Davey V Reason for Consultation: hgb drop 10.4 --> 9.1, occult positive stool. hx of new a fib with cardiology recc NOAC. Notified:: Service Spoke with:: Jasmin Date Notified:: 06/16/18 Time Notified:: 16:37 Ordering Provider: SENA 06/17/18 11:10 HUB Only Consult Order Routine Consulting Provider: Ronak Priest,Ranjana 06/17/18 19:12 Consult to Gastroenterology Routine Consulting Provider: Anurag Dwyer Patient known to:: Fatmata Perkins Reason for Consultation: pt known to [facility] service, hgb dropped , pos occult blood in the stool, new onset afib to rec NOACs Notified:: Service Spoke with:: Taz Date Notified:: 06/17/18 Time Notified:: 19:24 Ordering Provider: JEWEL Brief History from admission: This is a 77-year-old female. Admission 06/11/2018. Past medical history includes chronic tobacco abuse, COPD , depression/anxiety, hypertension and allergic rhinitis. Patient presents to [facility] In the ED, patient was noted to have leukocytosis, normocytic anemia and elevated potassium above 8. Trend is currently 10. BUN is elevated. Patient is quite confused. EKG reveals peaked T waves. Dr. Mason from nephrology was consulted and recommended emergent hemodialysis.. Hemodialysis cath was placed patient was transported to [place] [address] to begin this procedure. DS: Diagnosis Discharge Diagnosis (1) Atrial fibrillation with RVR: Status: Acute (2) Elevated troponin: Status: Acute (3) Acute renal failure: Status: Acute (4) Acute hyperkalemia: Status: Acute (5) COPD (chronic obstructive pulmonary disease): Status: Chronic (6) Tobacco abuse: Status: Chronic DS: Summary Patient is a 77-year-old female with long-standing smoking history presenting with new onset hyperkalemia and weakness requiring emergent hemodialysis with hospital course complicated by development of atrial fibrillation requiring BB for rate control with occult positive stools and heparin drip discontinued. Acute kidney injury Hyperkalemia Hypomagnesemia -Patient required transient dialysis. Currently off dialysis. -Creatinine 1.18 --> 1.37. BMP can be done in a week or so. We replaced magnesium with 2 g of magnesium sulfate IV. Atrial fibrillation, new onset Cardiology is following. Patient is on metoprolol 100 mg twice daily. After discussing with GI, started patient on apixaban 2.5 mg twice daily for stroke prevention Probable GI bleed Continue Protonix 40 mg daily. GI eval in the outpatient setting to consider endoscopic studies. Urinary tract infection with E. coli Currently on ciprofloxacin p.o. - will continue for few more doses. Full code. Apixaban. Overall, patient is doing well. Discussed with GI and Cardiology. GI is okay for patient to follow up in the outpatient setting to do endoscopic studies. Time Spent with Patient Total time spent providing and/or coordinating discharge services: Greater than 30 minutes Quality: VTE Deep Vein Thrombosis/Pulmonary Embolism Present on Admission: No Exam Narrative Exam Narrative: GENERAL: Alert, oriented x3, NAD. SKIN: Warm and dry. HEAD: Normocephalic. EYES: No scleral icterus. No injection or drainage. NECK: Supple, trachea midline. No JVD or lymphadenopathy. CARDIOVASCULAR: Regular rate and rhythm without murmurs, gallops, or rubs. RESPIRATORY: Poor air movements. No appreciable wheezing. No accessory muscle use. GASTROINTESTINAL: Abdomen soft, non-tender, nondistended. MUSCULOSKELETAL: No cyanosis, or edema. BACK: Nontender without obvious deformity. No CVA tenderness. Results Labs on day of discharge: Labs from last 24 hours 06/11/18 17:08 Critical Value Pending Impressions ITS Impressions Abdomen/Bladder Ultrasound 06/11/18 11:19 CONCLUSION: 1. Small echogenic right kidney 2. Normal left kidney 3. Trace ascites Chest X-Ray 06/16/18 00:00 CONCLUSION: Diffuse increased interstitial markings related to underlying chronic interstitial disease versus more acute diffuse pulmonary edema. Bilateral pleural effusions being worse on the right. Increased density at the bases related to the effusions. Some degree of superimposed atelectasis or consolidation especially at the right base can be considered. Discharge Plan Discharge Disposition Patient Disposition: 03 Discharge to SNF Discharge Condition Condition: Fair Discharge Order Discharge Orders: Discharge Order (Routine); Ordered 06/18/18 Ordered By: Adrian Bagley Discharge Details Anticipated Discharge Date: 06/18/18 Physicians Team Primary Care Provider: Pardeep Duke Attending Provider: Adrian Bagley Other Providers: Joel Maldonado ; Adi Mason ; Tammy Saleh ; Natalie Estrada ; Emanuel Davey V ; [facility]anjana ; Anurag Dwyer Rxs /Orders / Referrals /Forms Prescriptions: New ciprofloxacin HCl 500 mg Tablet 500 mg PO Q18H Qty: 3 RF: 0 apixaban [Eliquis] 2.5 mg Tablet 2.5 mg PO BID Qty: 60 RF: 11 metoprolol tartrate 100 mg Tablet 100 mg PO BID@0600,1800 Qty: 60 RF: 11 guaifenesin [Mucinex] 600 mg Tablet Extended Release 12hr 600 mg PO Q12H PRN (Reason: CONGESTION) Qty: 30 RF: 0 pantoprazole [Protonix] 40 mg tablet,delayed release (DR/EC) 40 mg PO DAILY Qty: 30 RF: 11 Continue cetirizine 10 mg Tablet 10 mg PO DAILY RF: 0 amlodipine 10 mg Tablet 10 mg PO DAILY RF: 0 buspirone 10 mg Tablet 10 mg PO BID RF: 0 sertraline 50 mg Tablet 50 mg PO DAILY RF: 0 Discontinued metoprolol succinate 50 mg Tablet Extended Release 24 Hr 50 mg PO BID RF: 0 sulfamethoxazole-trimethoprim 800-160 mg Tablet 1 tab PO Q12H RF: 0 lisinopril 40 mg Tablet 40 mg PO DAILY RF: 0 Referrals: Emanuel Davey MD [Physician] - See Instructions (Follow up within 2 weeks. ) Tammy Saleh MD [Physician] - See Instructions (Follow up within 3-4 weeks. ) Pardeep Duke MD [Primary Care Provider] - See Instructions Post Discharge Care Plan Care Plan Goals: Your Health Problems: Goals to Promote Your Health: * To prevent worsening of your condition * To maintain your health at the optimal level Directions to Meet Your Goals: * Take your medications as prescribed * Follow your dietary instruction * Follow activity as directed * Keep your appointments as scheduled * Take your immunizations and boosters as scheduled * If your symptoms worsen call your PCP * If no PCP go to Urgent Care or Emergency Room Smoking is dangerous to your health. Avoid second hand smoke. You may reach the 24-hour crisis hotline for domestic abuse at . Status ED Status: Left Department Discharge Information Discharge Date/Time: 06/18/18 17:00
== END 2018-06-18 17:00 | DRG 682 ==
LOC: NEPE 09:22 → NEDA 10:50 → HIMC 12:30 → N05 06-12 15:32 → N03 06-13 13:26 → N04 06-16 20:10
PROVIDERS: ADMIT Hospitalist; ATTEND Hospitalist
DX: Z68.1 Body mass index [BMI] 19.9 or less, adult; I48.91 Unspecified atrial fibrillation; R54 Age-related physical debility; F32.9 Major depressive disorder, single episode, unspecified; K92.1 Melena; R74.8 Abnormal levels of other serum enzymes; D69.6 Thrombocytopenia, unspecified; E83.39 Other disorders of phosphorus metabolism; I27.20 Pulmonary hypertension, unspecified; D64.9 Anemia, unspecified; J90 Pleural effusion, not elsewhere classified; G92 Toxic encephalopathy; E46 Unspecified protein-calorie malnutrition; E87.0 Hyperosmolality and hypernatremia; N17.9 Acute kidney failure, unspecified; Z82.5 Family history of asthma and other chronic lower respiratory diseases; F17.210 Nicotine dependence, cigarettes, uncomplicated; F41.9 Anxiety disorder, unspecified; R11.2 Nausea with vomiting, unspecified; B96.20 Unspecified Escherichia coli [E. coli] as the cause of diseases classified elsewhere; I10 Essential (primary) hypertension; R19.7 Diarrhea, unspecified; N39.0 Urinary tract infection, site not specified; E87.2 Acidosis; I49.3 Ventricular premature depolarization; J30.9 Allergic rhinitis, unspecified; E88.09 Other disorders of plasma-protein metabolism, not elsewhere classified; E87.5 Hyperkalemia; E83.42 Hypomagnesemia; J44.1 Chronic obstructive pulmonary disease with (acute) exacerbation
CPT/HCPCS: 36430; 36600; 51702; 71010; 71045; 76775; 80048; 80053; 80074; 81001; 82040; 82140; 82272; 82550; 82570; 82805; 82948; 82962; 83605; 83690; 83735; 84100; 84300; 84443; 84484; 85025; 85027; 85044; 85384; 85610; 85730; 86850; 86900; 86901; 86923; 87040; 87077; 87086; 87186; 87205; 87275; 87276; 87522; 87641; 87804; 87902; 90765; 90768; 90774; 90775; 90784; 90935; 93005; 93308; 94060; 94618; 94620; 94640; 94664; 94665; 96365; 96368; 96374; 96375; 97110; 97116; 97162; 99291; C1769; C8952; C9113; J0456; J0610; J1580; J1644; J1815; J1940; J2543; J3370; J3475; J7030; J7050; P9016; P9047